=== PATIENT | female | born 1975 | race Two or more races ===

== ENCOUNTER 2018-04-11 13:31 | Emergency (ER) | payer MEDICAID ==
[2018-04-11] VITALS (9 sets, daily range): BP systolic 131–175; BP diastolic 61–89
[~2018-04-11] VITALS: Ht 167.6 cm; Wt 72.6 kg
[2018-04-11] MEDS ORDERED: Sodium Chloride 500ML 500 ML IV ONE ×2 (13:44→17:00)
--- NOTE | 2018-04-11 13:44 | Emergency Room Report ---
History of Present Illness General Chief Complaint: Abdominal Pain Source: Patient, EMS Present Illness HPI Patient is a 42-year-old female who presented after increased left upper abdominal pain. The patient had prior history of end-stage renal disease as well as dialysis. Patient had recently been started on anticoagulation for right upper extremity circulatory issues. Patient states that she does not know I have any history of immune disease or scleroderma. Patient states she has prior history of diabetes as well as high blood pressure. Patient had been taking the patient denies having any diarrhea or vomiting. She reports having severe pain primarily to the left side. Patient is dialyzed through a right- sided dialysis catheter. The patient states she is dialyzed Thursday and Thursday last time was Thursday Allergies: Coded Allergies: No Known Allergies (Unverified , 04/11/18) Patient History Past Medical History: see triage record Now: No Reviewed Nursing Documentation: PMH: Agreed; PSxH: Agreed Nursing Documentation-PMH Past Medical History: No History, Except For Hx Hypertension: Yes Hx Dialysis: Yes Review of Systems All Other Systems: negative except mentioned in HPI Physical Exam Vital Signs Date Time Temp Pulse Resp B/P (MAP) Pulse Ox O2 Delivery O2 Flow Rate FiO2 04/11/18 13:25 98.0 98 22 155/75 97 Room Air 98.1 Sp02 EP Interpretation: reviewed, normal General Appearance: normal inspection, well appearing, alert, GCS 15, mild distress Head: atraumatic ENT: normal ENT inspection, hearing grossly normal, normal voice Neck: normal inspection, full range of motion, supple, no bony tend Respiratory: normal inspection, lungs clear, normal breath sounds, no respiratory distress, no retraction, no wheezing Cardiovascular #1: regular rate, rhythm, no edema Gastrointestinal: normal inspection, normal bowel sounds, non tender, soft, no guarding, no hernia Genitourinary: no CVA tenderness Musculoskeletal: back normal, normal range of motion, other - dry gangrene to right hand index middle finger Neurologic: normal inspection, alert, oriented x3, responsive, set up operator tool III-XII nml as tested, speech normal Psychiatric: normal inspection, judgement/insight normal, mood/affect normal Skin: no rash, other - discoloration to right hand Medical Decision Making Diagnostic Impression: Primary Impression: Anemia Additional Impressions: ESRD (end stage renal disease) Diabetes Gangrene of finger of right hand Abnormal EKG Intra abdominal hemorrhage ER Course Patient presented for abdominal pain. Differential diagnoses included ischemic bowel, appendicitis, perforated viscus, abdominal aortic aneurysm, inferior myocardial infarction, viral gastroenteritis. Because of complexity of patient' s case laboratory testing and imaging studies were ordered.The patient noted to be somewhat anemic with hemoglobin approximate 7. The patient was noted be mildly hyperkalemic. CT abdomen pelvis read by radiology showed extensive left perinephric hematoma which appears subcapsular and measuring approximately 5 fluid and hemorrhage extends along the left retroperitoneum and into the pelvis. Cardiomegaly was also noted as well as probable uterine fibroid. test was negative.The patient was consented for blood and was transfused the due to anemia ischemic changes. The patient was given pain medicationsThe patient stated that she had a recent kidney biopsy to her left kidney done at [facility]. Patient was given aspirin due but apparent ischemic changes on EKG. The patient was discussed with Dr. Preciado who agreed to accept the patient in transfer to [facility] [place]. The patient being transferred for higher level of care Labs Test 04/11/18 14:10 White Blood Count 17.5 K/UL (4.8-10.8) Red Blood Count 2.52 M/UL (4.20-5.40) Hemoglobin 7.6 G/DL (12.0-16.0) Hematocrit 24.3 % (37.0-47.0) Mean Corpuscular Volume 96 FL (80-99) Mean Corpuscular Hemoglobin 30.4 PG (27.0-31.0) Mean Corpuscular Hemoglobin Concent 31.5 G/DL (32.0-36.0) Red Cell Distribution Width 15.2 % (11.6-14.8) Platelet Count 459 K/UL (150-450) Mean Platelet Volume 6.2 FL (6.5-10.1) Neutrophils (%) (Auto) % (45.0-75.0) Lymphocytes (%) (Auto) % (20.0-45.0) Monocytes (%) (Auto) % (1.0-10.0) Eosinophils (%) (Auto) % (0.0-3.0) Basophils (%) (Auto) % (0.0-2.0) Differential Total Cells Counted 100 Neutrophils % (Manual) 50 % (45-75) Lymphocytes % (Manual) 34 % (20-45) Monocytes % (Manual) 9 % (1-10) Eosinophils % (Manual) 7 % (0-3) Basophils % (Manual) 0 % (0-2) Band Neutrophils 0 % (0-8) Platelet Estimate Increased Platelet Morphology Normal Polychromasia 1+ Hypochromasia 1+ Anisocytosis 1+ Macrocytosis 1+ Prothrombin Time 10.1 SEC (9.30-11.50) Prothromb Time International Ratio 1.0 (0.9-1.1) Activated Partial Thromboplast Time 24 SEC (23-33) Sodium Level 137 MMOL/L (136-145) Potassium Level 5.5 MMOL/L (3.5-5.1) Chloride Level 99 MMOL/L (98-107) Carbon Dioxide Level 21 MMOL/L (21-32) Anion Gap 17 mmol/L (5-15) Blood Urea Nitrogen 42 mg/dL (7-18) Creatinine 6.9 MG/DL (0.55-1.30) Estimat Glomerular Filtration Rate 6.6 mL/min (>60) Glucose Level 190 MG/DL (74-106) Calcium Level 10.4 MG/DL (8.5-10.1) Total Bilirubin 0.5 MG/DL (0.2-1.0) Aspartate Amino Transf (AST/SGOT) 35 U/L (15-37) Alanine Aminotransferase (ALT/SGPT) 15 U/L (12-78) Alkaline Phosphatase 152 U/L (46-116) Troponin I 0.097 ng/mL (0.000-0.056) Total Protein 9.2 G/DL (6.4-8.2) Albumin 2.9 G/DL (3.4-5.0) Globulin 6.3 g/dL Albumin/Globulin Ratio 0.5 (1.0-2.7) Lipase 153 U/L (73-393) Human Chorionic Gonadotropin, Qual Negative EKG Diagnostic Results Rate: normal Rhythm: NSR ST Segments: other - lateral st depression ASA given to the pt in ED: No Last Vital Signs Date Time Temp Pulse Resp B/P (MAP) Pulse Ox O2 Delivery O2 Flow Rate FiO2 04/11/18 13:32 98.1 89 22 155/75 97 Room Air 98.1 Status: unchanged Disposition: XFER SHT-TRM HOSP Condition: Critical Obinna Baez MD April 11, 2018 13:44
[2018-04-11] MEDS ORDERED: Pantoprazole Inj IVP ONE (13:45)
[2018-04-11] MEDS ORDERED: Morphine Sulfate 4mg/ml Inj IVP ONE ×4 (13:45→19:30)
[2018-04-11 14:29] LABS: HEMATOCRIT 24.3 % (37.0-47.0); HEMOGLOBIN 7.6 G/DL (12.0-16.0); MEAN CORPUSCULAR VOLUME 96 FL (80-99); PLATELET COUNT 459 K/UL (150-450); RED BLOOD COUNT 2.52 M/UL (4.20-5.40); RED CELL DISTRIBUTION WIDTH 15.2 % (11.6-14.8); WHITE BLOOD COUNT 17.5 K/UL (4.8-10.8)
[2018-04-11] MEDS ORDERED: Aspirin Baby 81mg ORAL ONE (14:30)
[2018-04-11] MEDS ORDERED: Piperacillin/Tazobactam 3.375 GM in NS 110 ML IVPB ONE (14:45)
[2018-04-11 15:05] LABS: ANION GAP 17 mmol/L (5-15); BLOOD UREA NITROGEN 42 mg/dL (7-18); CALCIUM 10.4 MG/DL (8.5-10.1); CARBON DIOXIDE 21 MMOL/L (21-32); CHLORIDE 99 MMOL/L (98-107); CREATININE 6.9 MG/DL (0.55-1.30); POTASSIUM 5.5 MMOL/L (3.5-5.1); SODIUM 137 MMOL/L (136-145)
[2018-04-11 15:14] LABS: ALANINE AMINOTRANSFERASE 15 U/L (12-78); ALBUMIN 2.9 G/DL (3.4-5.0); ALBUMIN/GLOBULIN RATIO 0.5 (1.0-2.7); ALKALINE PHOSPHATASE 152 U/L (46-116); ASPARTATE AMINO TRANSFERASE 35 U/L (15-37); BILIRUBIN,TOTAL 0.5 MG/DL (0.2-1.0)
[2018-04-11] MEDS ORDERED: Sodium Bicarbonate 50ml Carp IV ONE (15:30)
[2018-04-11] MEDS ORDERED: Morphine Sulfate 4mg/ml Inj ONE (19:27)
[2018-04-11] MEDS ORDERED: NKM (19:33)
[2018-04-12] VITALS: BP 136/98
[2018-04-12 03:15] VITALS: BP 135/62
--- NOTE | 2018-04-12 09:51 | Diagnostic Imaging Report ---
Indication: Abdominal pain Technique: Continuous helical transaxial imaging of the abdomen and pelvis was obtained from the lung bases to the pubic symphysis. No intravenous contrast was administered. Coronal 2-D reformats were also obtained. Automatic Exposure Control was utilized. Total Dose length Product (DLP): 915.[address] Dose Index Volume (CTDIvol): 15.03 mGy Comparison: none Findings: There is evidence of an acute hematoma that is primarily capsular location lateral to the left kidney. There is surrounding streaky opacification involving the perinephric space as well as the pararenal space extending down to the left hemipelvis. Although this is consistent with hematoma or retroperitoneal blood. The capsular component of the hematoma measures approximately 8.4 x 6 cm on transaxial images and about 12 cm craniocaudal dimension. The urinary bladder is hyperdense which is probably blood due to associated hematuria. Gallstones are present. The right kidney is absent. There is a moderate amount of fecal material in the colon. There is no evidence of bowel obstruction.There is mild posterior basilar atelectasis. There is trace pericardial effusion versus thickening. IMPRESSION: Left subcapsular retroperitoneal hematoma with associated perinephric and retroperitoneal blood. Associated blood within the urinary bladder. Absent right kidney. Other incidental findings as above. [facility] has communicated the preliminary results to the Emergency Department. Their findings are largely concordant with this report. Critical value communication. Findings were discussed via telephone with emergency room physician department by [facility] physician at 15:22, 04/11/[address] scanner at [facility] is accredited by the [employer] and the scans are performed using dose optimization techniques as appropriate to a performed exam including Automatic Exposure control.
--- NOTE | 2018-04-12 13:51 | Cardiology Report ---
APPROVED REPORT EKG Measurement Heart [id number] [id number] Normal sinus rhythm Left ventricular hypertrophy with repolarization abnormality Abnormal ECG
== END 2018-04-11 20:12 | disposition short-term general hospital (02) ==
LOC: EDBD 13:31 → EMR 13:43 → EDBEDREQ 16:26 → EMR 20:12
DX: D64.9 Anemia, unspecified (principal); I12.0 Hypertensive chronic kidney disease with stage 5 chronic kidney disease or end stage renal disease; N18.6 End stage renal disease; Z99.2 Dependence on renal dialysis; I96 Gangrene, not elsewhere classified; R94.31 Abnormal electrocardiogram [ECG] [EKG]; R58 Hemorrhage, not elsewhere classified; K80.20 Calculus of gallbladder without cholecystitis without obstruction
CPT/HCPCS: 36415; 74176; 80053; 83690; 84484; 84703; 85007; 85025; 85610; 85730; 86850; 86900; 86901; 86920; 93005; 96374; 96375; 99285; C9113; J2270; J2405; J2543; J7040; P9016

== ENCOUNTER 2018-11-01 13:59 | Inpatient (IN) | payer MEDICAID ==
[~2018-11-01] VITALS: Ht 167.6 cm; Wt 88.9 kg
[2018-11-01] VITALS (13 sets, daily range): BP systolic 75–142; BP diastolic 26–81
[~2018-11-01 13:59] MED LIST: ACETAMINOPHEN325 M1 ORAL; AMLODIPINE-ATO1 EAC4 ORAL; ATORVASTATIN CA40 MG ORAL; BETADINE TP; CALCIUM ACETAT667 M1 PO; CATAPRES0.3 MG ORAL; CYMBALTA60 MG ORAL; DAKIN'S473 ML MC; DOCUSATE SODIU100 MG ORAL; FAMOTIDINE20 MG ORAL; FOLIC ACID1 MG ORAL; HEPARIN SO5000 UNIT2 SUBQ; HIBICLENS118 ML TP; HYDRALAZINE HCL25 M1 ORAL; IPRATROPIU0.2 MG/1 M HHN; MEROPENEM500 MG IV; MERREM1 GM IV; MIRTAZAPINE7.5 MG ORAL; NKM; NOVOLIN R100 UNIT/1 SUBQ; NOVOLOG100 UNITS1 SUBQ; PROCRIT20000 UNI2 SUBQ; VANCOMYCIN HCL125 MG IVPB
[2018-11-01] MEDS ORDERED: ASCORBIC ACID500 MG ORAL (14:22)
[2018-11-01] MEDS ORDERED: ZINC SULFATE220 M1 ORAL (14:22)
[2018-11-01] MEDS ORDERED: PERCOCET 10-321 EACH ORAL (14:22)
[2018-11-01] MEDS ORDERED: MIRTAZAPINE15 MG ORAL (14:22)
--- NOTE | 2018-11-01 14:44 | Emergency Room Report ---
History of Present Illness General Chief Complaint: Skin Rash/Abscess Source: Patient, EMS Present Illness HPI Patient present from nursing facility with swelling to the right arm Patient has multiple comorbidities including renal failure Patient reports being last dialyzed yesterday Denies any chest pain however she feels weak also cramping and spasming in both legs She reports the swelling and redness starting about 3 days ago Denies any fevers denies any neck pain or photophobia Allergies: Coded Allergies: No Known Allergies (Unverified , 04/11/18) Patient History Past Medical History: see triage record Pertinent Family History: none Reviewed Nursing Documentation: PMH: Agreed; PSxH: Agreed Nursing Documentation-PMH Past Medical History: No History, Except For Hx Cardiac Problems: Yes Hx Hypertension: Yes Hx Diabetes: Yes Hx Cancer: No Hx Gastrointestinal Problems: No Hx Dialysis: Yes - T,Th,S Hx Neurological Problems: Yes - HEREDITARY AND IDIOPATHIC NEUROPATHY, UNSPECIFIED Review of Systems All Other Systems: negative except mentioned in HPI Physical Exam Vital Signs Date Time Temp Pulse Resp B/P (MAP) Pulse Ox O2 Delivery O2 Flow Rate FiO2 11/01/18 14:00 97.5 68 20 133/89 11/01/18 14:02 98 Room Air Sp02 EP Interpretation: reviewed, normal General Appearance: no apparent distress Head: normocephalic, atraumatic Eyes: bilateral eye PERRL, bilateral eye EOMI ENT: dry mucus membranes Neck: supple Respiratory: lungs clear, normal breath sounds Cardiovascular #1: regular rate, rhythm Gastrointestinal: non tender, soft Musculoskeletal: other - Extended in both lower extremities, with pressure guards in place, equal dental laboratory manager bilaterally Neurologic: alert, oriented x3, responsive Skin: other - There is a fluctuant mass in the right upper arm involving the forearm and antecubital fossa patient has a, PICC line just above that,Multiple other sacral decubitus ulcers and open wounds Lymphatic: no adenopathy Procedures Critical Care Time Critical Care Time 35 minutes for multiple re-evaluations, concerning hypotensive presentation concerning for cardiopulmonary arrest not including any procedural time Medical Decision Making Diagnostic Impression: Primary Impression: Abscess Additional Impressions: Rash and other nonspecific skin eruption Open wound of both hips Renal failure ER Course Given the patient's history exam and presentation sensitive blood work is initiated patient initially hypotensive however has done better with acute intervention Sepsis reexamination Time: Re-eval VS refer to nursing note cvs: RRR respiratory: improved respiration peripheral pulses: 2+radial cap refill:<2 seconds skin exam: warm, dry, not mottled Patient provided with broad-spectrum antibiotics Gen. surgery is contacted and patient requires further care Labs Test 11/01/18 14:45 11/01/18 16:00 11/02/18 07:00 White Blood Count 11.7 K/UL (4.8-10.8) 9.9 K/UL (4.8-10.8) Red Blood Count 3.85 M/UL (4.20-5.40) 3.35 M/UL (4.20-5.40) Hemoglobin 11.0 G/DL (12.0-16.0) 9.7 G/DL (12.0-16.0) Hematocrit 37.3 % (37.0-47.0) 32.5 % (37.0-47.0) Mean Corpuscular Volume 97 FL (80-99) 97 FL (80-99) Mean Corpuscular Hemoglobin 28.7 PG (27.0-31.0) 28.9 PG (27.0-31.0) Mean Corpuscular Hemoglobin Concent 29.6 G/DL (32.0-36.0) 29.9 G/DL (32.0-36.0) Red Cell Distribution Width 16.4 % (11.6-14.8) 16.3 % (11.6-14.8) Platelet Count 185 K/UL (150-450) 188 K/UL (150-450) Mean Platelet Volume 6.0 FL (6.5-10.1) 5.6 FL (6.5-10.1) Neutrophils (%) (Auto) 52.7 % (45.0-75.0) 62.3 % (45.0-75.0) Lymphocytes (%) (Auto) 35.1 % (20.0-45.0) 25.1 % (20.0-45.0) Monocytes (%) (Auto) 8.8 % (1.0-10.0) 7.6 % (1.0-10.0) Eosinophils (%) (Auto) 1.7 % (0.0-3.0) 2.9 % (0.0-3.0) Basophils (%) (Auto) 1.7 % (0.0-2.0) 2.2 % (0.0-2.0) Sodium Level 138 MMOL/L (136-145) 142 MMOL/L (136-145) Potassium Level 5.1 MMOL/L (3.5-5.1) 4.3 MMOL/L (3.5-5.1) Chloride Level 106 MMOL/L (98-107) 108 MMOL/L (98-107) Carbon Dioxide Level 25 MMOL/L (21-32) 27 MMOL/L (21-32) Anion Gap 8 mmol/L (5-15) 7 mmol/L (5-15) Blood Urea Nitrogen 27 mg/dL (7-18) 29 mg/dL (7-18) Creatinine 4.0 MG/DL (0.55-1.30) 4.2 MG/DL (0.55-1.30) Estimat Glomerular Filtration Rate 12.3 mL/min (>60) 11.6 mL/min (>60) Glucose Level 75 MG/DL (74-106) 105 MG/DL (74-106) Lactic Acid Level 2.30 mmol/L (0.4-2.0) 1.70 mmol/L (0.66-2.22) Calcium Level 8.7 MG/DL (8.5-10.1) 8.2 MG/DL (8.5-10.1) Total Bilirubin 0.7 MG/DL (0.2-1.0) 0.6 MG/DL (0.2-1.0) Aspartate Amino Transf (AST/SGOT) 18 U/L (15-37) 15 U/L (15-37) Alanine Aminotransferase (ALT/SGPT) < 6 U/L (12-78) 1 U/L (12-78) Alkaline Phosphatase 289 U/L (46-116) 239 U/L (46-116) Total Creatine Kinase 24 U/L (26-308) Creatine Kinase MB 1.0 NG/ML (0.0-3.6) Creatine Kinase MB Relative Index 4.1 Troponin I 0.033 ng/mL (0.000-0.056) Total Protein 7.5 G/DL (6.4-8.2) 6.6 G/DL (6.4-8.2) Albumin 1.4 G/DL (3.4-5.0) 1.2 G/DL (3.4-5.0) Globulin 6.1 g/dL 5.4 g/dL Albumin/Globulin Ratio 0.2 (1.0-2.7) 0.2 (1.0-2.7) Lipase 31 U/L (73-393) Rhythm Strip Diag. Results EP Interpretation: yes Rate: 88 Rhythm: NSR, no PVC's, no ectopy Chest X-Ray Diagnostic Results Chest X-Ray Diagnostic Results : Chest X-Ray Ordered: Yes # of Views/Limited/Complete: 1 View Indication: Chest Pain EP Interpretation: Yes Interpretation: other - Bilateral effusions, cardiomegaly, pulmonary congestion, no acute bony abnormalities Impression: Other - Pulmonary congestion bilateral effusions Last Vital Signs Date Time Temp Pulse Resp B/P (MAP) Pulse Ox O2 Delivery O2 Flow Rate FiO2 11/01/18 14:02 97.7 88 12 96/26 98 Room Air Status: improved Disposition: ADMITTED INPATIENT Condition: Critical Jaylon Armenta DO Nov 01, 2018 14:44
--- NOTE | 2018-11-01 15:09 | Diagnostic Imaging Report ---
Indication: Dyspnea Comparison: 10/22/2018 A single view chest radiograph was obtained. Findings: Congestion noted centrally with mild cardiomegaly. Parenchymal disease at the lung bases again noted. There is likely bilateral pleural effusions. A right jugular permacath is present in good position. IMPRESSION: Congestive heart failure and bilateral pleural effusions. Overall severity of the disease appears improved from the last examination
[2018-11-01] MEDS ORDERED: Sodium Chloride 500ML 500 ML IV ONE (15:15)
[2018-11-01] MEDS ORDERED: cefTRIAXone 1 GM in NS 55 ML IVPB ONE (15:15)
[2018-11-01] MEDS ORDERED: Vancomycin 1 GM in NS 275 ML IVPB ONE (15:15)
[2018-11-01 15:26] LABS: BASOPHILS % (AUTO) 1.7 % (0.0-2.0); EOSINOPHILS % (AUTO) 1.7 % (0.0-3.0); HEMATOCRIT 37.3 % (37.0-47.0); LYMPHOCYTES % (AUTO) 35.1 % (20.0-45.0); MEAN CORPUSCULAR VOLUME 97 FL (80-99); MONOCYTES % (AUTO) 8.8 % (1.0-10.0); NEUTROPHILS % (AUTO) 52.7 % (45.0-75.0); PLATELET COUNT 185 K/UL (150-450); RED BLOOD COUNT 3.85 M/UL (4.20-5.40); RED CELL DISTRIBUTION WIDTH 16.4 % (11.6-14.8); WHITE BLOOD COUNT 11.7 K/UL (4.8-10.8)
[2018-11-01 15:34] LABS: ANION GAP 8 mmol/L (5-15); BLOOD UREA NITROGEN 27 mg/dL (7-18); CALCIUM 8.7 MG/DL (8.5-10.1); CARBON DIOXIDE 25 MMOL/L (21-32); CHLORIDE 106 MMOL/L (98-107); POTASSIUM 5.1 MMOL/L (3.5-5.1); SODIUM 138 MMOL/L (136-145)
[2018-11-01 15:59] LABS: ALANINE AMINOTRANSFERASE < 6 U/L (12-78); ALBUMIN 1.4 G/DL (3.4-5.0); ALBUMIN/GLOBULIN RATIO 0.2 (1.0-2.7); ALKALINE PHOSPHATASE 289 U/L (46-116); ASPARTATE AMINO TRANSFERASE 18 U/L (15-37); BILIRUBIN,TOTAL 0.7 MG/DL (0.2-1.0); CREATINE KINASE 24 U/L (26-308)
[2018-11-01] MEDS ORDERED: COLLAGENASE1 EACH TP (18:29)
[2018-11-01] MEDS ORDERED: OXYCODONE-ACET1 EAC3 ORAL (18:29)
[2018-11-01] MEDS ORDERED: PRO-STAT AWC L887 ML PO (18:31)
[2018-11-01] MEDS ORDERED: NEPRO CARB STE237 ML PO (18:33)
[2018-11-01] MEDS ORDERED: oxyCODONE HCL/Acetaminophen 5/325mg ORAL PRN (19:45)
[2018-11-01] MEDS: NovoLOG Insulin Flexpen SUBQ SCH (21:00)
[2018-11-01] MEDS ORDERED: DULoxetine 30mg cap ORAL SCH (21:00)
[2018-11-01] MEDS ORDERED: Epogen (for ESRD on dialysis) SUBQ SCH (21:00)
[2018-11-01] MEDS ORDERED: Atorvastatin 20mg tab ORAL SCH (21:00)
[2018-11-01] MEDS: Heparin 5000 units/ml inj SUBQ SCH (22:41)
[2018-11-02] VITALS (20 sets, daily range): BP systolic 104–117; BP diastolic 23–83
[2018-11-02] MEDS: Calcium Acetate 667mg Tab ORAL SCH ×3 (05:59→16:35)
[2018-11-02] MEDS: NovoLOG Insulin Flexpen SUBQ SCH ×4 (06:06→21:00)
[2018-11-02] MEDS: Heparin 5000 units/ml inj SUBQ SCH ×3 (06:06→21:25)
[2018-11-02 07:23] LABS: BASOPHILS % (AUTO) 2.2 % (0.0-2.0); EOSINOPHILS % (AUTO) 2.9 % (0.0-3.0); HEMATOCRIT 32.5 % (37.0-47.0); HEMOGLOBIN 9.7 G/DL (12.0-16.0); LYMPHOCYTES % (AUTO) 25.1 % (20.0-45.0); MEAN CORPUSCULAR VOLUME 97 FL (80-99); MONOCYTES % (AUTO) 7.6 % (1.0-10.0); NEUTROPHILS % (AUTO) 62.3 % (45.0-75.0); PLATELET COUNT 188 K/UL (150-450); RED BLOOD COUNT 3.35 M/UL (4.20-5.40); RED CELL DISTRIBUTION WIDTH 16.3 % (11.6-14.8); WHITE BLOOD COUNT 9.9 K/UL (4.8-10.8)
[2018-11-02 07:41] LABS: ALBUMIN 1.2 G/DL (3.4-5.0); ALBUMIN/GLOBULIN RATIO 0.2 (1.0-2.7); ALKALINE PHOSPHATASE 239 U/L (46-116); ANION GAP 7 mmol/L (5-15); ASPARTATE AMINO TRANSFERASE 15 U/L (15-37); BILIRUBIN,TOTAL 0.6 MG/DL (0.2-1.0); BLOOD UREA NITROGEN 29 mg/dL (7-18); CALCIUM 8.2 MG/DL (8.5-10.1); CARBON DIOXIDE 27 MMOL/L (21-32); CHLORIDE 108 MMOL/L (98-107); CREATININE 4.2 MG/DL (0.55-1.30); POTASSIUM 4.3 MMOL/L (3.5-5.1); SODIUM 142 MMOL/L (136-145)
[2018-11-02 07:50] LABS: ALANINE AMINOTRANSFERASE 1 U/L (12-78)
[2018-11-02] MEDS ORDERED: Zinc Sulfate 220mg cap ORAL SCH (09:00)
[2018-11-02] MEDS ORDERED: Ascorbic Acid 500mg tab ORAL SCH (09:00)
[2018-11-02] MEDS ORDERED: Vancomycin 500mg/D5W 110ml IVPB ONE ×2 (10:00)
[2018-11-02] MEDS ORDERED: Dakin's 0.125% Soln (Quarter Strength) 16oz TOPIC SCH (11:30)
[2018-11-02] MEDS ORDERED: Morphine Sulfate 2mg/ml Inj IVP PRN ×2 (12:15→16:30)
[2018-11-02] MEDS ORDERED: Betadine 4oz Bottle TOPIC ONE (12:30)
[2018-11-02] MEDS ORDERED: Tubing IV Secondary IV ONE (15:20)
--- NOTE | 2018-11-02 15:29 | Cardiology Report ---
APPROVED REPORT EKG Measurement Heart [id number] 152P41 [id number] Normal sinus rhythm Possible Left atrial enlargement Prolonged QT Abnormal ECG
--- NOTE | 2018-11-02 16:45 | History and Physical Report ---
DATE OF ADMISSION: 11/01/2018 CHIEF COMPLAINT: Sepsis, cellulitis of the arm, end-stage renal disease, multiple decubitus ulcers. HISTORY OF PRESENT ILLNESS: The patient is an unfortunate 43-year-old female. She has history of end-stage renal disease, on chronic hemodialysis, hypertension, and diabetes. She has history of chronic wounds on the hips. [facility] She was apparently noted to be draining pus and have an abscess and cellulitis on the forearm several inches from her PICC line insertion site. She was transferred to the emergency room. On evaluation there, she was hypotensive. Her white count was elevated at 12,000. Cultures were drawn from the wound on the forearm and she is now admitted to intensive care unit because of persistent hypotension. She otherwise was without complaints. She denies any fever or chills. She has had no chest pain or shortness of breath. PAST MEDICAL HISTORY: As above. PAST SURGICAL HISTORY: Includes history of left upper extremity AV fistula. She has a PermCath. CURRENT MEDICATIONS: Reconciled and reviewed. ALLERGIES: None. FAMILY HISTORY: None. SOCIAL HISTORY: There is no known history of tobacco, ethanol, or drugs. The patient currently resides in a jail facility. PHYSICAL EXAMINATION: VITAL SIGNS: Temperature 97.8, pulse 85, respirations 15, blood pressure 110/42. GENERAL: The patient is a thin, chronic ill-appearing female, in no apparent distress. HEART: Regular rate and rhythm. LUNGS: Clear. SKIN: She has a chest wall catheter on the right side and an AV fistula with good thrill on the left upper extremity. The right arm has a PICC line and several inches below the PICC line, there is erythema and drainage noted. LABORATORY DATA: Sodium 138, potassium was 5, creatinine was 4. The white count was 12, hemoglobin 11, platelets 185,000. ASSESSMENT: This is an unfortunate female with history of end-stage renal disease, diabetes, hypertension, multiple decubitus ulcers, admitted with complaints of cellulitis of the right arm. PROBLEM LIST: 1. Right arm cellulitis. 2. End-stage renal disease. 3. Sepsis and shock. 4. History of diabetes. 5. Hypertension. PLAN: IV antibiotics. Surgery followup. Renal consultation for continuation of the patient's hemodialysis. Wound care evaluation from wound hr shared services consultant. Holden Quiroz M.D. DR: Amira JOB#: [id number] CC:
--- NOTE | 2018-11-02 17:00 | Consultation ---
DATE OF CONSULTATION: 11/02/2018 REFERRING PHYSICIAN: Holden Quiroz M.D. REASON FOR CONSULTATION: 1. End-stage renal disease, on hemodialysis. 2. Anemia of chronic kidney disease. HISTORY OF PRESENT ILLNESS: The patient is a pleasant 43-year-old female who had recently been to [facility] for sepsis due to underlying wound infections. The patient now being readmitted again due to swelling of the right upper arm with possible PICC line infection. The patient is awake, alert, coherent, in no overt distress. The patient has not had hemodialysis since Thursday. PAST MEDICAL HISTORY: 1. End-stage renal disease on hemodialysis. 2. Anemia of chronic kidney disease. 3. Sepsis. 4. Secondary hyperparathyroidism. 5. Chronic pain syndrome. 6. Hyperlipidemia. PAST SURGICAL HISTORY: 1. Dialysis access placement. 2. PICC line placement. 3. Sacral wound debridements. ALLERGIES: No known drug allergies. FAMILY HISTORY: Noncontributory. REVIEW OF SYSTEMS: NEUROLOGIC: The patient denies headache, change in vision, syncope, or presyncopal episodes. CARDIOVASCULAR: No current chest pain, palpitations, angina. PULMONARY: No difficulty breathing, productive cough, sputum. GASTROINTESTINAL/GENITOURINARY: No change in urine or bowel habits. No nausea, vomiting, diarrhea. ENDOCRINOLOGY: No night sweats, fevers, chills. MUSCULOSKELETAL: The patient is feeling weak, tired, and fatigue. PHYSICAL EXAMINATION: VITAL SIGNS: Blood pressure 110/42, respiratory rate 13, pulse 90, temperature 97.8, 100% oxygen saturation on 2 liters nasal cannula. HEENT: Extraocular muscles intact. No lymphadenopathy noted. CARDIOVASCULAR: S1 and S2. No rubs or gallops. PULMONARY: Clear to auscultation bilaterally. No rales, rhonchi, or wheeze. ABDOMEN: Nondistended and nontender. EXTREMITIES: No edema noted. Wound noted. LABORATORY AND DIAGNOSTIC DATA: Laboratories dated 11/02/2018, sodium 142, potassium 4.3, BUN 29, creatinine 4.2, calcium 8.2. Hemoglobin 9.7, white cell count 9.9, and platelet count 188. ASSESSMENT AND PLAN: 1. End-stage renal disease, on hemodialysis. We will continue hemodialysis on Thursday, , and Thursday. We will order hemodialysis for today with minimal UF due to hemodynamic instability. 2. Anemia of chronic kidney disease. Continue Epogen. 3. Sepsis. Possible PICC line infection. IV antibiotics per primary care physician and Infectious Diseases. 4. Chronic pain syndrome. Defer management to primary care physician. Let me take this opportunity to thank Dr. Quiroz. Rajat Turner MD DR: Justin JOB#: [id number] CC:
[2018-11-02] MEDS: DULoxetine 30mg cap ORAL SCH (21:24)
[2018-11-02] MEDS: Atorvastatin 20mg tab ORAL SCH (21:24)
[2018-11-02] MEDS: Morphine Sulfate 2mg/ml Inj IVP PRN (21:27)
[2018-11-03] VITALS: BP 119/64
[2018-11-03 04:00] VITALS: BP 121/73
[2018-11-03] MEDS: Calcium Acetate 667mg Tab ORAL SCH ×3 (05:38→16:15)
[2018-11-03] MEDS: NovoLOG Insulin Flexpen SUBQ SCH ×4 (05:38→20:35)
[2018-11-03] MEDS: Heparin 5000 units/ml inj SUBQ SCH ×3 (05:47→21:24)
[2018-11-03 08:00] VITALS: BP 114/77
--- NOTE | 2018-11-03 08:36 | Nephrology Progress Note ---
Assessment/Plan Assessment/Plan A/P 1) ESRD- will continue HD TTS - had HD yesterday. AM labs pending 2) Sepsis/Cellulitis- Abx per per PCP - patient improved 3) Anemia of CKD- on EPO 3 x week 4) SHPT- check phos levels 5) Sacral Wounds- per wound care Subjective Date patient seen: Nov 03, 2018 Time patient seen: 08:25 ROS Limited/Unobtainable: No Constitutional: Reports: weakness Allergies: Coded Allergies: No Known Allergies (Unverified , 04/11/18) Subjective Patient fatigued. Resting comfortably Objective Last 24 Hour Vital Signs Date Time Temp Pulse Resp B/P (MAP) Pulse Ox O2 Delivery O2 Flow Rate FiO2 11/03/18 04:00 Nasal Cannula 2.0 11/03/18 04:00 86 11/03/18 04:00 97.8 84 14 121/73 (89) 100 11/03/18 00:00 Nasal Cannula 2.0 11/03/18 00:00 98.2 95 16 119/64 (82) 100 11/03/18 00:00 93 11/02/18 20:00 93 11/02/18 20:00 Nasal Cannula 2.0 11/02/18 20:00 98.0 88 10 112/56 (74) 100 11/02/18 18:00 85 11 109/28 (55) 100 11/02/18 17:00 88 9 112/26 (54) 100 11/02/18 16:00 97.5 86 5 112/26 (54) 100 11/02/18 16:00 85 11/02/18 15:00 86 11 116/28 (57) 100 11/02/18 14:00 85 12 104/23 (50) 100 11/02/18 13:00 85 11 113/28 (56) 100 11/02/18 12:00 90 11/02/18 12:00 97.9 89 10 112/50 (70) 100 11/02/18 11:00 87 15 111/59 (76) 100 11/02/18 10:00 85 14 109/83 (92) 100 11/02/18 09:00 90 13 111/26 (54) 100 Intake and Output 11/02/18 11/03/18 19:00 07:00 Intake Total 160 ml Output Total 1000 ml Balance -840 ml Intake Oral 50 ml IV Total 110 ml Output Hemodialysis UF 1000 ml Height (Feet): 5 Height (Inches): 6.00 Weight (Pounds): 153 General Appearance: no apparent distress EENT: normal ENT inspection Neck: normal alignment, supple Cardiovascular: normal rate, regular rhythm Respiratory/Chest: rhonchi - bilaterally Abdomen: non tender, soft Edema: no edema noted Arm (L), no edema noted Arm (R), no edema noted Leg (L), no edema noted Leg (R), no edema noted Pedal (L), no edema noted Pedal (R), no edema noted Generalized Rajat Turner MD Nov 03, 2018 08:36
[2018-11-03] MEDS ORDERED: Dakin's 0.125% Soln (Quarter Strength) 16oz TOPIC SCH ×2 (09:00→21:00)
[2018-11-03] MEDS: Ascorbic Acid 500mg tab ORAL SCH (09:20)
[2018-11-03] MEDS: Zinc Sulfate 220mg cap ORAL SCH (09:21)
[2018-11-03 09:38] LABS: EOSINOPHILS % (AUTO) 3.2 % (0.0-3.0); HEMATOCRIT 29.6 % (37.0-47.0); HEMOGLOBIN 8.9 G/DL (12.0-16.0); LYMPHOCYTES % (AUTO) 32.8 % (20.0-45.0); MEAN CORPUSCULAR VOLUME 96 FL (80-99); MONOCYTES % (AUTO) 10.6 % (1.0-10.0); NEUTROPHILS % (AUTO) 51.5 % (45.0-75.0); PLATELET COUNT 146 K/UL (150-450); RED BLOOD COUNT 3.08 M/UL (4.20-5.40); RED CELL DISTRIBUTION WIDTH 16.1 % (11.6-14.8); WHITE BLOOD COUNT 9.7 K/UL (4.8-10.8)
[2018-11-03 11:07] LABS: ANION GAP 6 mmol/L (5-15); BLOOD UREA NITROGEN 25 mg/dL (7-18); CALCIUM 8.2 MG/DL (8.5-10.1); CARBON DIOXIDE 29 MMOL/L (21-32); CHLORIDE 105 MMOL/L (98-107); CREATININE 3.1 MG/DL (0.55-1.30); SODIUM 140 MMOL/L (136-145)
[2018-11-03 12:00] VITALS: BP 123/71
--- NOTE | 2018-11-03 15:50 | Consultation ---
History of Present Illness General Date patient seen: Nov 03, 2018 Chief Complaint: Skin Rash/Abscess Reason for Consultation: right arm abscess Present Illness HPI 43 year old unfortunate female with multiple medical comorbidities who is care dependant was recently readmitted. Patient was seen prior admission and help care for her many wounds. currently readmitted and noted to have right arm abscess. surgery called to evaluate. patient seen, chart reviewed, patient examined. states she feels well. has been noting drainage in right arm for days now Allergies: Coded Allergies: No Known Allergies (Unverified , 04/11/18) Medication History Scheduled Amino Acids/Protein Hydrolys (Pro-Stat Awc Liquid), 30 ML PO TID, (Reported) Ascorbic Acid* (Ascorbic Acid*), 500 MG ORAL DAILY, (Reported) Atorvastatin Calcium* (Atorvastatin Calcium*), 40 MG ORAL BEDTIME, (Reported) Calcium Acetate (Calcium Acetate), 1,334 MG PO AC, (Reported) Chlorhexidine Gluconate* (Hibiclens*), 118 ML TP DAILY, (Reported) Collagenase Clostridium Hist. (Collagenase), 1 EACH TP Q12HR, (Reported) Duloxetine Hcl* (Cymbalta*), 60 MG ORAL DAILY, (Reported) Epoetin Vishal (Procrit), 7,500 UNIT SUBQ 3XW, (Reported) Famotidine (Famotidine), 20 MG ORAL DAILY, (Reported) Folic Acid* (Folic Acid*), 1 MG ORAL DAILY, (Reported) Heparin Sod (Porcine) (Heparin Sodium*), 5,000 UNITS SUBQ EVERY 8 HOURS, ( Reported) Insulin Aspart (Novolog Flexpen), SUBQ BEFORE MEALS AND HS, (Reported) Insulin Regular, Human* (Novolin R*), 0 SUBQ .SLIDING SCALE, (Reported) Meropenem (Meropenem), 500 MG IV DAILY, (Reported) Mirtazapine* (Remeron*), 15 MG ORAL BEDTIME, (Reported) Nut.tx.impaired Renal Fxn,Soy (Nepro Carb Steady), Unknown Dose PO TID, ( Reported) Zinc Sulfate (Zinc Sulfate*), 220 MG ORAL DAILY, (Reported) Scheduled PRN Acetaminophen* (Acetaminophen 325MG Tablet*), 650 MG ORAL Q6HR PRN for Fever/ Headache/Mild Pain, (Reported) Ipratropium [place] 0.5MG/2.5ML (Ipratropium [place] 0.5MG/2.5ML), 0.5 MG HHN Q6H PRN for Shortness of Breath, (Reported) Oxycodone Hcl/Acetaminophen 10-325 Mg Tablet (Percocet 10-325 Mg Tablet*), 1 TAB ORAL Q6H PRN for For Pain, (Reported) Oxycodone Hcl/Acetaminophen 5-325* (Oxycodone-Acetaminophen 5-325*), 1 TAB ORAL Q4H PRN for Pain Scale (3-5), (Reported) Oxycodone Hcl/Acetaminophen 5-325* (Oxycodone-Acetaminophen 5-325*), 2 TAB ORAL Q4H PRN for Pain Scale (6-10), (Reported) Miscellaneous Medications Povidone-Iodine (Betadine), 3,780 ML TP, (Reported) Sodium Hypochlorite (Dakin's), 473 ML MC, (Reported) Vancomycin Hcl (Vancomycin Hcl), 0 IVPB, (Reported) Discontinued Medications Acetaminophen* (Acetaminophen 325MG Tablet*), 650 MG ORAL Q4H PRN for Mild Pain (Pain Scale 1-3), (Reported) Discontinued Reason: Pt stopped taking med Amlodipine-Atorvastatin 10-20 Mg (Amlodipine-Atorvastatin 10-20 Mg), 1 TAB ORAL DAILY, (Reported) Discontinued Reason: Pt stopped taking med Calcium Acetate (Calcium Acetate), 667 MG PO, (Reported) Discontinued Reason: Pt stopped taking med Clonidine Hcl* (Catapres*), 0.3 MG ORAL Q8HR, (Reported) Discontinued Reason: Pt stopped taking med Docusate Sodium* (Docusate Sodium*), 100 MG ORAL THREE TIMES A DAY, (Reported) Discontinued Reason: Pt stopped taking med Heparin Sod (Porcine) (Heparin Sodium*), 5,000 UNITS SUBQ EVERY 8 HOURS, ( Reported) Discontinued Reason: Pt stopped taking med Hydralazine Hcl* (Hydralazine Hcl*), 25 MG ORAL EVERY 8 HOURS, (Reported) Discontinued Reason: MD discontinued med Meropenem (Merrem), 1 GM IV, (Reported) Discontinued Reason: Pt stopped taking med Mirtazapine* (Mirtazapine*), 7.5 MG ORAL BEDTIME, (Reported) Discontinued Reason: Pt stopped taking med No Known Medications* (NKM - No Known Medications*), 0 ., (Reported) Discontinued Reason: Pt stopped taking med Patient History Limited by: medical condition History Provided By: Patient, Medical Record, PMD Healthcare decision maker MICHAEL RICHARDSON Resuscitation status Full Code Advanced Directive on File unk Past Medical/Surgical History Past Medical/Surgical History: (1) Dyspnea (2) Respiratory distress (3) HCAP (healthcare-associated pneumonia) (4) Sacral decubitus ulcer, stage IV (5) Decubitus ulcer of both heels, unstageable (6) Pleural effusion (7) Sepsis (8) UTI (urinary tract infection) (9) Sacral pressure ulcer (10) Acute osteomyelitis of foot (11) Acute osteomyelitis of right calcaneus (12) Abscess of upper arm (13) Abscess (14) Rash and other nonspecific skin eruption (15) Renal failure (16) Open wound of both hips Review of Systems All Other Systems: negative except mentioned in HPI Physical Exam General Appearance: no apparent distress Lines, tubes and drains: PICC HEENT: mucous membranes moist Neck: normal inspection Respiratory/Chest: normal breath sounds, no respiratory distress Cardiovascular/Chest: normal rate, regular rhythm Abdomen: soft, no organomegaly, no mass Extremities: other Skin Exam: other Neurologic: alert, responsive Last 24 Hour Vital Signs Date Time Temp Pulse Resp B/P (MAP) Pulse Ox O2 Delivery O2 Flow Rate FiO2 11/03/18 12:01 88 11/03/18 12:00 Nasal Cannula 2.0 11/03/18 12:00 97.9 89 16 123/71 (88) 99 11/03/18 08:03 85 11/03/18 08:00 Nasal Cannula 2.0 11/03/18 08:00 97.6 96 15 114/77 (89) 98 11/03/18 04:00 Nasal Cannula 2.0 11/03/18 04:00 86 11/03/18 04:00 97.8 84 14 121/73 (89) 100 11/03/18 00:00 Nasal Cannula 2.0 11/03/18 00:00 98.2 95 16 119/64 (82) 100 11/03/18 00:00 93 11/02/18 20:00 93 11/02/18 20:00 Nasal Cannula 2.0 11/02/18 20:00 98.0 88 10 112/56 (74) 100 11/02/18 18:00 85 11 109/28 (55) 100 11/02/18 17:00 88 9 112/26 (54) 100 11/02/18 16:00 97.5 86 5 112/26 (54) 100 11/02/18 16:00 85 Intake and Output 11/02/18 11/03/18 19:00 07:00 Intake Total 160 ml Output Total 1000 ml Balance -840 ml Intake Oral 50 ml IV Total 110 ml Output Hemodialysis UF 1000 ml Laboratory Tests Test 11/03/18 08:35 White Blood Count 9.7 K/UL (4.8-10.8) Red Blood Count 3.08 M/UL (4.20-5.40) L Hemoglobin 8.9 G/DL (12.0-16.0) L Hematocrit 29.6 % (37.0-47.0) L Mean Corpuscular Volume 96 FL (80-99) Mean Corpuscular Hemoglobin 28.9 PG (27.0-31.0) Mean Corpuscular Hemoglobin Concent 30.0 G/DL (32.0-36.0) L Red Cell Distribution Width 16.1 % (11.6-14.8) H Platelet Count 146 K/UL (150-450) L Mean Platelet Volume 5.8 FL (6.5-10.1) L Neutrophils (%) (Auto) 51.5 % (45.0-75.0) Lymphocytes (%) (Auto) 32.8 % (20.0-45.0) Monocytes (%) (Auto) 10.6 % (1.0-10.0) H Eosinophils (%) (Auto) 3.2 % (0.0-3.0) H Basophils (%) (Auto) 2.0 % (0.0-2.0) Sodium Level 140 MMOL/L (136-145) Potassium Level 4.0 MMOL/L (3.5-5.1) Chloride Level 105 MMOL/L (98-107) Carbon Dioxide Level 29 MMOL/L (21-32) Anion Gap 6 mmol/L (5-15) Blood Urea Nitrogen 25 mg/dL (7-18) H Creatinine 3.1 MG/DL (0.55-1.30) H Estimat Glomerular Filtration Rate 16.5 mL/min (>60) Glucose Level 67 MG/DL (74-106) L Calcium Level 8.2 MG/DL (8.5-10.1) L Height (Feet): 5 Height (Inches): 6.00 Weight (Pounds): 169 Medications Current Medications Medications (Trade) Dose Ordered Sig/Alexandru Route PRN Reason Start Time Stop Time Status Last Admin Dose Admin Acetaminophen (Tylenol) 325 mg Q6H PRN ORAL Mild Pain/Temp > 100.5 11/02/18 19:00 12/01/18 18:59 Ascorbic Acid (Vitamin C) 500 mg DAILY ORAL 11/03/18 09:00 12/02/18 08:59 11/03/18 09:20 Atorvastatin Calcium (Lipitor) 40 mg BEDTIME ORAL 11/02/18 21:00 12/01/18 20:59 11/02/18 21:24 Calcium Acetate (Phoslo) 1,334 mg TIAC ORAL 11/03/18 06:30 12/02/18 06:29 Chlorhexidine Gluconate (Lashae-Hex 2%) 1 applic DAILY@2000 TOPIC 11/03/18 20:00 12/03/18 19:59 Dextrose (Dextrose 50%) 25 ml Q30M PRN IV Hypoglycemia 11/02/18 19:00 12/01/18 19:59 11/03/18 11:22 Dextrose (Dextrose 50%) 50 ml Q30M PRN IV Hypoglycemia 11/02/18 19:00 12/01/18 19:59 Duloxetine HCl (Cymbalta) 60 mg QHS ORAL 11/02/18 21:00 12/01/18 20:59 11/02/18 21:24 Epoetin Vishal (Procrit (for ESRD on dialysis)) 7,500 units MON-WED-FRI SUBQ 11/03/18 21:00 12/01/18 20:59 Famotidine (Pepcid) 20 mg DAILY ORAL 11/03/18 09:00 12/02/18 08:59 11/03/18 09:21 Folic Acid (Folate) 1 mg DAILY ORAL 11/03/18 09:00 12/02/18 08:59 11/03/18 09:21 Heparin Sodium (Porcine) (Heparin 5000 units/ml) 5,000 units EVERY 8 HOURS SUBQ 11/02/18 22:00 1/9/19 21:59 11/03/18 13:59 Insulin Aspart (NovoLOG) BEFORE MEALS AND HS SUBQ 11/02/18 21:00 12/01/18 20:59 Mirtazapine (Remeron) 15 mg BEDTIME ORAL 11/02/18 21:00 12/01/18 20:59 11/02/18 21:24 Morphine Sulfate (Morphine Sulfate) 1 mg Q4H PRN IVP Severe Pain (Pain Scale 7-10) 11/02/18 21:30 11/09/18 21:29 11/02/18 21:27 Oxycodone/ Acetaminophen (Percocet 10/325) 1 tab Q6H PRN ORAL Moderate Pain (Pain Scale 4-6) 11/02/18 19:00 11/08/18 18:59 Oxycodone/ Acetaminophen (Percocet 5-325) 1 tab Q4H PRN ORAL Moderate [place] Pain (5-7) 11/02/18 19:00 11/08/18 18:59 Sodium Hypochlorite (Dakin's Quarter Strength) 1 applic DAILY TOPIC 11/04/18 09:00 12/02/18 11:29 Vancomycin HCl (Vanco rx to dose) 1 ea DAILY PRN MISC Per rx protocol 11/03/18 09:00 12/01/18 19:59 Zinc Sulfate (Zinc Sulfate) 220 mg DAILY ORAL 11/03/18 09:00 12/02/18 08:59 11/03/18 09:21 Assessment/Plan Problem List: (1) Abscess of upper arm Assessment & Plan: right upper extremity Antecubital AC fossa abscess. etiology unknown. at first area of induration / cellulitis but since has opened and draining pus. leukocytosis resolved multiple other wounds but those are chronic right arm picc but more proximal to abscess and do not seem to be related -ultrasound ordered to ensure abscess resolving with spontaneous drainage -dressing changes TID and prn -will monitor clinically. if not improved will require formal I&D thank you ICD Codes: L02.419 - Cutaneous abscess of limb, unspecified SNOMED: 66517137 (2) Sacral decubitus ulcer, stage IV Assessment & Plan: Pt presents with multiple Full thickness and unstageable pressure injuries. Abscess that is oozing moderate amt purulent exudate L upper ext.Pt's hygiene grossly neglected. Full thickness pressure injury L hip(L)11cm x (W)26cm with scattered mixed soft necrosis and slough wound bed and along borders .Periwound dark and indurated. Small amt brownish, malodorous exudate noted.Pressure injury to L ischium (L)2cm x (W)2.4cm with 100% soft necrosis , marginal erythema along borders.Periwound with dark skin pigmentation without erythema or induration.Full thickness pressure injury R hip (L)16.5cm x (W)11cm x (D)2cm. Mixed soft necrosis and slough to wound bed with Thick layer of soft necrosis along borders .Periwound dark without induration.Inferiorly to R hip wound is second full thickness pressure injury (L)2cm x (W)5.5cm with 100% yellow slough. Sacrum black with fluctuance(L)9.7cm x (W)13.3cm. Scattered small openings that are dry noted to wound bed. Periwound is intact. Dark skin tone without erythema or induration noted to R ischium.Historical scars noted to medial aspect of R thigh. Full thickness ulcer with 100% soft necrosis noted to posterior L tibia(L)6cm x (W)2.5cm .periwound dry and intact without erythema.Dry scaling skin both feet and web spaces of metatarsals.Dry eschar noted to 1st ,2nd .4th and 5th metatarsals of L foot .Unstable eschar noted to dorsum L 3rd metatarsal. Stable dry eschar noted to L hallux(L)1.7cm x (W) 1.6cm. Stable dry eschar noted to distal /lateral L foot (L)0.5cm x (W)0.7cm. Edges and periwound are intact. Full thickness pressure injury L heel with 90% necrosis with bordering erythema and soft slough (L)6cm x (W)6.6cm. Periwound dry and boggy without erythema. Full thickness pressure injury R heel with approx 40% necrosis,60% ivory with slough ,(+) maceration along borders .minimal brownish exudate.No odor noted. Periwound boggy without erythema. Dark skin pigmentation noted to 1-5th metatarsals R foot. Stable eschar noted to R hallux (L)1.5cm x (W)1cm.periwound is dry and intact. Tx.Plan: Apply Dakin's 0.025% soaked gauze to pressure injuries R Hip,L Hip,L Ischium and Sacrum. Cover with ABD pads and secure with Tegaderm drsgs Daily and prn. Apply Betadine to wounds R and L foot wounds .Cover with ABD and wrap with Kerlix Daily and prn. Apply Betadine to wound posterior R tibia.Cover with Abd pad and wrap with Kerlix Daily and prn. Reposition at least every 2 hours or as tolerated. Air Fluidized mattress. Off-load heels with pillow. ICD Codes: L89.154 - Pressure ulcer of sacral region, stage 4 SNOMED: 159695518, [id number] Alfred Hodges Nov 03, 2018 15:50
[2018-11-03 16:00] VITALS: BP 142/62
[2018-11-03] MEDS: Dakin's 0.125% Soln (Quarter Strength) 16oz TOPIC SCH (16:17)
[2018-11-03] MEDS: Morphine Sulfate 2mg/ml Inj IVP PRN ×2 (16:29→23:34)
--- NOTE | 2018-11-03 17:50 | General Progress Note ---
Assessment/Plan Problem List: (1) Abscess ICD Codes: L02.91 - Cutaneous abscess, unspecified SNOMED: 343338659 (2) Sepsis ICD Codes: A41.9 - Sepsis, unspecified organism SNOMED: 76216355 (3) Sacral pressure ulcer ICD Codes: L89.159 - Pressure ulcer of sacral region, unspecified stage SNOMED: 530246022 (4) Sacral decubitus ulcer, stage IV ICD Codes: L89.154 - Pressure ulcer of sacral region, stage 4 SNOMED: 427286928, 360028860 (5) Acute osteomyelitis of right calcaneus ICD Codes: M86.171 - Other acute osteomyelitis, right ankle and foot SNOMED: 149251800 Status: stable Assessment/Plan iv abx follow up cultures wound care HD per renal dvt/stress ulcer prophylaxis Subjective ROS Limited/Unobtainable: No Constitutional: Reports: malaise, weakness HEENT: Reports: no symptoms Cardiovascular: Reports: no symptoms Respiratory: Reports: no symptoms Gastrointestinal/Abdominal: Reports: poor appetite Genitourinary: Reports: no symptoms Neurologic/Psychiatric: Reports: no symptoms Endocrine: Reports: no symptoms Hematologic/Lymphatic: Reports: no symptoms Allergies: Coded Allergies: No Known Allergies (Unverified , 04/11/18) All Systems: reviewed and negative except above Subjective no events. stable. +blood cultures noted. Objective Last 24 Hour Vital Signs Date Time Temp Pulse Resp B/P (MAP) Pulse Ox O2 Delivery O2 Flow Rate FiO2 11/03/18 16:00 97.9 92 16 142/62 (88) 100 11/03/18 16:00 Nasal Cannula 2.0 11/03/18 15:34 87 11/03/18 12:01 88 11/03/18 12:00 Nasal Cannula 2.0 11/03/18 12:00 97.9 89 16 123/71 (88) 99 11/03/18 08:03 85 11/03/18 08:00 Nasal Cannula 2.0 11/03/18 08:00 97.6 96 15 114/77 (89) 98 11/03/18 04:00 Nasal Cannula 2.0 11/03/18 04:00 86 11/03/18 04:00 97.8 84 14 121/73 (89) 100 11/03/18 00:00 Nasal Cannula 2.0 11/03/18 00:00 98.2 95 16 119/64 (82) 100 11/03/18 00:00 93 11/02/18 20:00 93 11/02/18 20:00 Nasal Cannula 2.0 11/02/18 20:00 98.0 88 10 112/56 (74) 100 11/02/18 18:00 85 11 109/28 (55) 100 Intake and Output 11/02/18 11/03/18 19:00 07:00 Intake Total 160 ml Output Total 1000 ml Balance -840 ml Intake Oral 50 ml IV Total 110 ml Output Hemodialysis UF 1000 ml Laboratory Tests 11/03/18 08:35: White Blood Count 9.7, Red Blood Count 3.08L, Hemoglobin 8.9L, Hematocrit 29.6L , Mean Corpuscular Volume 96, Mean Corpuscular Hemoglobin 28.9, Mean Corpuscular Hemoglobin Concent 30.0L, Red Cell Distribution Width 16.1H, Platelet Count 146L, Mean Platelet Volume 5.8L, Neutrophils (%) (Auto) 51.5, Lymphocytes (%) (Auto) 32.8, Monocytes (%) (Auto) 10.6H, Eosinophils (%) (Auto) 3.2H, Basophils (%) (Auto) 2.0, Sodium Level 140, Potassium Level 4.0, Chloride Level 105, Carbon Dioxide Level 29, Anion Gap 6, Blood Urea Nitrogen 25H, Creatinine 3.1H, Estimat Glomerular Filtration Rate 16.5, Glucose Level 67L, Calcium Level 8.2L Height (Feet): 5 Height (Inches): 6.00 Weight (Pounds): 169 General Appearance: WD/WN, alert Neck: supple Cardiovascular: normal rate Respiratory/Chest: chest wall non-tender, lungs clear, normal breath sounds Abdomen: normal bowel sounds, non tender, soft, no organomegaly Edema: no edema noted Arm (L), no edema noted Arm (R), no edema noted Leg (L), no edema noted Leg (R), no edema noted Pedal (L), no edema noted Pedal (R), no edema noted Generalized Neurologic: alert, responsive Holden Quiroz MD Nov 03, 2018 17:50
[2018-11-03 20:00] VITALS: BP 129/72
[2018-11-03] MEDS: Dyna-Hex 2% Top Sol 2oz TOPIC SCH (20:33)
[2018-11-03] MEDS: Atorvastatin 20mg tab ORAL SCH (20:33)
[2018-11-03] MEDS: DULoxetine 30mg cap ORAL SCH (20:34)
[2018-11-03] MEDS: Epogen (for ESRD on dialysis) SUBQ SCH (21:21)
[2018-11-04] VITALS: BP 136/63
[2018-11-04 04:00] VITALS: BP 139/44
[2018-11-04] MEDS: Heparin 5000 units/ml inj SUBQ SCH ×3 (06:05→22:00)
[2018-11-04] MEDS: Calcium Acetate 667mg Tab ORAL SCH ×3 (06:09→16:13)
[2018-11-04] MEDS: NovoLOG Insulin Flexpen SUBQ SCH ×4 (06:30→21:00)
[2018-11-04 07:44] VITALS: BP 123/80
--- NOTE | 2018-11-04 08:17 | Nephrology Progress Note ---
Assessment/Plan Assessment/Plan A/P 1) ESRD- HD TTS - orders placed. Use AVF and remove permacath if viable 2) Sepsis/Cellulitis- Abx 3) Anemia of CKD- on EPO 3 x week 4) SHPT- on phos binder 5) Sacral Wounds- per wound care Subjective Date patient seen: Nov 04, 2018 Time patient seen: 08:13 ROS Limited/Unobtainable: No Constitutional: Reports: weakness Allergies: Coded Allergies: No Known Allergies (Unverified , 04/11/18) Subjective Patient fatigued. Sleeping comfortably in no distress Objective Last 24 Hour Vital Signs Date Time Temp Pulse Resp B/P (MAP) Pulse Ox O2 Delivery O2 Flow Rate FiO2 11/04/18 08:06 85 11/04/18 07:44 97.9 85 17 123/80 (94) 100 11/04/18 04:00 88 11/04/18 04:00 Nasal Cannula 2.0 11/04/18 04:00 97.5 89 16 139/44 (75) 100 11/04/18 00:00 Nasal Cannula 2.0 11/04/18 00:00 97.5 96 15 136/63 (87) 100 11/04/18 00:00 95 11/03/18 20:00 97.9 92 16 129/72 (91) 100 11/03/18 20:00 91 11/03/18 20:00 Nasal Cannula 2.0 11/03/18 16:00 97.9 92 16 142/62 (88) 100 11/03/18 16:00 Nasal Cannula 2.0 11/03/18 15:34 87 11/03/18 12:01 88 11/03/18 12:00 Nasal Cannula 2.0 11/03/18 12:00 97.9 89 16 123/71 (88) 99 Intake and Output 11/03/18 11/04/18 19:00 07:00 Intake Total 30 ml 0 ml Balance 30 ml 0 ml Intake Oral 30 ml 0 ml Laboratory Tests 11/03/18 08:35: White Blood Count 9.7, Red Blood Count 3.08L, Hemoglobin 8.9L, Hematocrit 29.6L , Mean Corpuscular Volume 96, Mean Corpuscular Hemoglobin 28.9, Mean Corpuscular Hemoglobin Concent 30.0L, Red Cell Distribution Width 16.1H, Platelet Count 146L, Mean Platelet Volume 5.8L, Neutrophils (%) (Auto) 51.5, Lymphocytes (%) (Auto) 32.8, Monocytes (%) (Auto) 10.6H, Eosinophils (%) (Auto) 3.2H, Basophils (%) (Auto) 2.0, Sodium Level 140, Potassium Level 4.0, Chloride Level 105, Carbon Dioxide Level 29, Anion Gap 6, Blood Urea Nitrogen 25H, Creatinine 3.1H, Estimat Glomerular Filtration Rate 16.5, Glucose Level 67L, Calcium Level 8.2L 11/04/18 03:35: Random Vancomycin Level 29.3 11/04/18 07:35: Sodium Level [Pending], Potassium Level [Pending], Chloride Level [Pending], Carbon Dioxide Level [Pending], Blood Urea Nitrogen [Pending], Creatinine [ Pending], Estimat Glomerular Filtration Rate [Pending], Glucose Level [Pending] , Calcium Level [Pending] Height (Feet): 5 Height (Inches): 6.00 Weight (Pounds): 153 General Appearance: no apparent distress EENT: normal ENT inspection Neck: normal alignment, supple Cardiovascular: normal rate, regular rhythm Respiratory/Chest: lungs clear, normal breath sounds Abdomen: non tender, soft Edema: 1+ Arm (L), 1+ Arm (R), 1+ Leg (L), 1+ Leg (R) Rajat Turner MD Nov 04, 2018 08:17
[2018-11-04 08:26] LABS: ANION GAP 5 mmol/L (5-15); BLOOD UREA NITROGEN 28 mg/dL (7-18); CALCIUM 8.2 MG/DL (8.5-10.1); CARBON DIOXIDE 30 MMOL/L (21-32); CHLORIDE 105 MMOL/L (98-107); CREATININE 3.8 MG/DL (0.55-1.30); POTASSIUM 4.1 MMOL/L (3.5-5.1); SODIUM 140 MMOL/L (136-145)
[2018-11-04] MEDS: Ascorbic Acid 500mg tab ORAL SCH ×2 (08:27→09:00)
[2018-11-04] MEDS: Zinc Sulfate 220mg cap ORAL SCH ×2 (08:27→09:00)
--- NOTE | 2018-11-04 09:03 | Diagnostic Imaging Report ---
Indication: Inflammation of the right forearm Technique: Grayscale and duplex images of the area of interest in the right forearm Comparison: none Findings: There is edema of the subcutaneous fat in the right forearm. There is a there is an 11 x 6 mm hypoechoic focus within the subcutaneous fat which could represent a small abscess. No peripheral hyperemia noted, however. Impression: Possible small 11 x 6 mm abscess in the subcutaneous fat of the right forearm in the area of interest
[2018-11-04 11:49] VITALS: BP 115/44
--- NOTE | 2018-11-04 12:31 | Consultation ---
History of Present Illness General Chief Complaint: Skin Rash/Abscess Reason for Consultation: right arm abscess Present Illness HPI 43-year-old female. She has history of end-stage renal disease, on chronic hemodialysis, hypertension, and diabetes. She has history of chronic wounds on the hips. She has been on IV antibiotic. the pt pw failure to thrive and severe anxiety the pt has insomnia. no si/hi Allergies: Coded Allergies: No Known Allergies (Unverified , 04/11/18) Medication History Scheduled Amino Acids/Protein Hydrolys (Pro-Stat Awc Liquid), 30 ML PO TID, (Reported) Ascorbic Acid* (Ascorbic Acid*), 500 MG ORAL DAILY, (Reported) Atorvastatin Calcium* (Atorvastatin Calcium*), 40 MG ORAL BEDTIME, (Reported) Calcium Acetate (Calcium Acetate), 1,334 MG PO AC, (Reported) Chlorhexidine Gluconate* (Hibiclens*), 118 ML TP DAILY, (Reported) Collagenase Clostridium Hist. (Collagenase), 1 EACH TP Q12HR, (Reported) Duloxetine Hcl* (Cymbalta*), 60 MG ORAL DAILY, (Reported) Epoetin Vishal (Procrit), 7,500 UNIT SUBQ 3XW, (Reported) Famotidine (Famotidine), 20 MG ORAL DAILY, (Reported) Folic Acid* (Folic Acid*), 1 MG ORAL DAILY, (Reported) Heparin Sod (Porcine) (Heparin Sodium*), 5,000 UNITS SUBQ EVERY 8 HOURS, ( Reported) Insulin Aspart (Novolog Flexpen), SUBQ BEFORE MEALS AND HS, (Reported) Insulin Regular, Human* (Novolin R*), 0 SUBQ .SLIDING SCALE, (Reported) Meropenem (Meropenem), 500 MG IV DAILY, (Reported) Mirtazapine* (Remeron*), 15 MG ORAL BEDTIME, (Reported) Nut.tx.impaired Renal Fxn,Soy (Nepro Carb Steady), Unknown Dose PO TID, ( Reported) Zinc Sulfate (Zinc Sulfate*), 220 MG ORAL DAILY, (Reported) Scheduled PRN Acetaminophen* (Acetaminophen 325MG Tablet*), 650 MG ORAL Q6HR PRN for Fever/ Headache/Mild Pain, (Reported) Ipratropium Antelope 0.5MG/2.5ML (Ipratropium Antelope 0.5MG/2.5ML), 0.5 MG HHN Q6H PRN for Shortness of Breath, (Reported) Oxycodone Hcl/Acetaminophen 10-325 Mg Tablet (Percocet 10-325 Mg Tablet*), 1 TAB ORAL Q6H PRN for For Pain, (Reported) Oxycodone Hcl/Acetaminophen 5-325* (Oxycodone-Acetaminophen 5-325*), 1 TAB ORAL Q4H PRN for Pain Scale (3-5), (Reported) Oxycodone Hcl/Acetaminophen 5-325* (Oxycodone-Acetaminophen 5-325*), 2 TAB ORAL Q4H PRN for Pain Scale (6-10), (Reported) Miscellaneous Medications Povidone-Iodine (Betadine), 3,780 ML TP, (Reported) Sodium Hypochlorite (Dakin's), 473 ML MC, (Reported) Vancomycin Hcl (Vancomycin Hcl), 0 IVPB, (Reported) Discontinued Medications Acetaminophen* (Acetaminophen 325MG Tablet*), 650 MG ORAL Q4H PRN for Mild Pain (Pain Scale 1-3), (Reported) Discontinued Reason: Pt stopped taking med Amlodipine-Atorvastatin 10-20 Mg (Amlodipine-Atorvastatin 10-20 Mg), 1 TAB ORAL DAILY, (Reported) Discontinued Reason: Pt stopped taking med Calcium Acetate (Calcium Acetate), 667 MG PO, (Reported) Discontinued Reason: Pt stopped taking med Clonidine Hcl* (Catapres*), 0.3 MG ORAL Q8HR, (Reported) Discontinued Reason: Pt stopped taking med Docusate Sodium* (Docusate Sodium*), 100 MG ORAL THREE TIMES A DAY, (Reported) Discontinued Reason: Pt stopped taking med Heparin Sod (Porcine) (Heparin Sodium*), 5,000 UNITS SUBQ EVERY 8 HOURS, ( Reported) Discontinued Reason: Pt stopped taking med Hydralazine Hcl* (Hydralazine Hcl*), 25 MG ORAL EVERY 8 HOURS, (Reported) Discontinued Reason: discontinued med Meropenem (Merrem), 1 GM IV, (Reported) Discontinued Reason: Pt stopped taking med Mirtazapine* (Mirtazapine*), 7.5 MG ORAL BEDTIME, (Reported) Discontinued Reason: Pt stopped taking med No Known Medications* (NKM - No Known Medications*), 0 ., (Reported) Discontinued Reason: Pt stopped taking med Patient History Limited by: medical condition History Provided By: Patient, PMD Healthcare decision maker MICHAEL RICHARDSON Resuscitation status Full Code Advanced Directive on File unk Past Medical/Surgical History Past Medical/Surgical History: (1) Abscess (2) Rash and other nonspecific skin eruption (3) Open wound of both hips (4) Abscess of upper arm (5) Dyspnea (6) Respiratory distress (7) Pleural effusion (8) Renal failure (9) Sepsis (10) UTI (urinary tract infection) (11) Acute osteomyelitis of foot (12) Sacral pressure ulcer (13) HCAP (healthcare-associated pneumonia) (14) Sacral decubitus ulcer, stage IV (15) Acute osteomyelitis of right calcaneus (16) Decubitus ulcer of both heels, unstageable (17) Poor appetite Review of Systems Psychiatric: Reports: prior hx, anxiety, depressed feelings Physical Exam General Appearance: no apparent distress, alert, cachetic Neurologic: oriented x 3, responsive, depressed affect Last 24 Hour Vital Signs Date Time Temp Pulse Resp B/P (MAP) Pulse Ox O2 Delivery O2 Flow Rate FiO2 11/04/18 12:00 88 11/04/18 12:00 Nasal Cannula 2.0 11/04/18 11:49 97.6 87 18 115/44 (67) 100 11/04/18 08:06 85 11/04/18 08:00 Nasal Cannula 2.0 11/04/18 07:44 97.9 85 17 123/80 (94) 100 11/04/18 04:00 88 11/04/18 04:00 Nasal Cannula 2.0 11/04/18 04:00 97.5 89 16 139/44 (75) 100 11/04/18 00:00 Nasal Cannula 2.0 11/04/18 00:00 97.5 96 15 136/63 (87) 100 11/04/18 00:00 95 11/03/18 20:00 97.9 92 16 129/72 (91) 100 11/03/18 20:00 91 11/03/18 20:00 Nasal Cannula 2.0 11/03/18 16:00 97.9 92 16 142/62 (88) 100 11/03/18 16:00 Nasal Cannula 2.0 11/03/18 15:34 87 Intake and Output 11/03/18 11/04/18 19:00 07:00 Intake Total 30 ml 0 ml Balance 30 ml 0 ml Intake Oral 30 ml 0 ml Laboratory Tests Test 11/04/18 03:35 11/04/18 07:35 Random Vancomycin Level 29.3 ug/mL Sodium Level 140 MMOL/L (136-145) Potassium Level 4.1 MMOL/L (3.5-5.1) Chloride Level 105 MMOL/L (98-107) Carbon Dioxide Level 30 MMOL/L (21-32) Anion Gap 5 mmol/L (5-15) Blood Urea Nitrogen 28 mg/dL (7-18) H Creatinine 3.8 MG/DL (0.55-1.30) H Estimat Glomerular Filtration Rate 13.1 mL/min (>60) Glucose Level 85 MG/DL (74-106) Calcium Level 8.2 MG/DL (8.5-10.1) L Height (Feet): 5 Height (Inches): 6.00 Weight (Pounds): 153 Medications Current Medications Medications (Trade) Dose Ordered Sig/Alexandru Route PRN Reason Start Time Stop Time Status Last Admin Dose Admin Acetaminophen (Tylenol) 325 mg Q6H PRN ORAL Mild Pain/Temp > 100.5 11/02/18 19:00 12/01/18 18:59 Ascorbic Acid (Vitamin C) 500 mg DAILY ORAL 11/03/18 09:00 12/02/18 08:59 11/04/18 08:27 Atorvastatin Calcium (Lipitor) 40 mg BEDTIME ORAL 11/02/18 21:00 12/01/18 20:59 11/03/18 20:33 Calcium Acetate (Phoslo) 1,334 mg TIAC ORAL 11/03/18 06:30 12/02/18 06:29 Chlorhexidine Gluconate (Lashae-Hex 2%) 1 applic DAILY@1999 TOPIC 11/03/18 20:00 12/03/18 19:59 11/03/18 20:33 Dextrose (Dextrose 50%) 25 ml Q30M PRN IV Hypoglycemia 11/02/18 19:00 12/01/18 19:59 11/04/18 11:36 Dextrose (Dextrose 50%) 50 ml Q30M PRN IV Hypoglycemia 11/02/18 19:00 12/01/18 19:59 11/04/18 06:09 Duloxetine HCl (Cymbalta) 60 mg QHS ORAL 11/02/18 21:00 12/01/18 20:59 11/03/18 20:34 Epoetin Vishal (Procrit (for ESRD on dialysis)) 7,500 units MON-WED-FRI SUBQ 11/03/18 21:00 12/01/18 20:59 11/03/18 21:21 Famotidine (Pepcid) 20 mg DAILY ORAL 11/03/18 09:00 12/02/18 08:59 11/04/18 08:27 Folic Acid (Folate) 1 mg DAILY ORAL 11/03/18 09:00 12/02/18 08:59 11/04/18 08:27 Heparin Sodium (Porcine) (Heparin 5000 units/ml) 5,000 units EVERY 8 HOURS SUBQ 11/02/18 22:00 12/01/18 21:59 11/04/18 06:05 Insulin Aspart (NovoLOG) BEFORE MEALS AND HS SUBQ 11/02/18 21:00 12/01/18 20:59 Mirtazapine (Remeron) 15 mg BEDTIME ORAL 11/02/18 21:00 12/01/18 20:59 11/03/18 20:33 Morphine Sulfate (Morphine Sulfate) 1 mg Q4H PRN IVP Severe Pain (Pain Scale 7-10) 11/02/18 21:30 11/09/18 21:29 11/03/18 23:34 Oxycodone/ Acetaminophen (Percocet 10/325) 1 tab Q6H PRN ORAL Moderate Pain (Pain Scale 4-6) 11/02/18 19:00 11/08/18 18:59 Oxycodone/ Acetaminophen (Percocet 5-325) 1 tab Q4H PRN ORAL Moderate Breakthru Pain (5-7) 11/02/18 19:00 11/08/18 18:59 Sodium Hypochlorite (Dakin's Quarter Strength) 1 applic DAILY TOPIC 11/04/18 09:00 12/02/18 11:29 11/03/18 16:17 Vancomycin HCl (Vanco rx to dose) 1 ea DAILY PRN MISC Per rx protocol 11/03/18 09:00 12/01/18 19:59 Zinc Sulfate (Zinc Sulfate) 220 mg DAILY ORAL 11/03/18 09:00 12/02/18 08:59 11/04/18 08:27 Assessment/Plan Problem List: (1) Anxiety disorder ICD Codes: F41.9 - Anxiety disorder, unspecified SNOMED: 285145936 (2) Poor appetite ICD Codes: R63.0 - Anorexia SNOMED: 79792848 Status: unchanged Assessment/Plan Remeron 15mg qhs provided navarro/Rose Perea MD Nov 04, 2018 12:31
[2018-11-04] MEDS ORDERED: Amikacin Rx to dose MISC PRN (13:15)
[2018-11-04] MEDS ORDERED: Amikacin 500 MG in NS 110 ML IV SCH (14:00)
[2018-11-04] MEDS: D5NS 1,000 ML IV SCH (14:13)
[2018-11-04 15:40] VITALS: BP 136/42
--- NOTE | 2018-11-04 16:31 | General Progress Note ---
Assessment/Plan Problem List: (1) Abscess ICD Codes: L02.91 - Cutaneous abscess, unspecified SNOMED: 875704138 (2) Sepsis ICD Codes: A41.9 - Sepsis, unspecified organism SNOMED: 08119082 (3) Sacral pressure ulcer ICD Codes: L89.159 - Pressure ulcer of sacral region, unspecified stage SNOMED: 090735796 (4) Sacral decubitus ulcer, stage IV ICD Codes: L89.154 - Pressure ulcer of sacral region, stage 4 SNOMED: 921422625, 123655600 (5) Acute osteomyelitis of right calcaneus ICD Codes: M86.171 - Other acute osteomyelitis, right ankle and foot SNOMED: 045229353 Status: stable Assessment/Plan iv abx follow up cultures wound care HD per renal dvt/stress ulcer prophylaxis encourage po message left with Subjective ROS Limited/Unobtainable: No Constitutional: Reports: malaise, weakness HEENT: Reports: no symptoms Cardiovascular: Reports: no symptoms Gastrointestinal/Abdominal: Reports: poor appetite Genitourinary: Reports: no symptoms Neurologic/Psychiatric: Reports: pre-existing deficit Endocrine: Reports: no symptoms Hematologic/Lymphatic: Reports: anemia Allergies: Coded Allergies: No Known Allergies (Unverified , 04/11/18) All Systems: reviewed and negative except above Subjective no events. stable. +blood cultures noted. refusing po meds and food Objective Last 24 Hour Vital Signs Date Time Temp Pulse Resp B/P (MAP) Pulse Ox O2 Delivery O2 Flow Rate FiO2 11/04/18 16:10 88 11/04/18 16:00 Nasal Cannula 2.0 11/04/18 15:40 98.2 85 18 136/42 (73) 100 11/04/18 12:00 88 11/04/18 12:00 Nasal Cannula 2.0 11/04/18 11:49 97.6 87 18 115/44 (67) 100 11/04/18 08:06 85 11/04/18 08:00 Nasal Cannula 2.0 11/04/18 07:44 97.9 85 17 123/80 (94) 100 11/04/18 04:00 88 11/04/18 04:00 Nasal Cannula 2.0 11/04/18 04:00 97.5 89 16 139/44 (75) 100 11/04/18 00:00 Nasal Cannula 2.0 11/04/18 00:00 97.5 96 15 136/63 (87) 100 11/04/18 00:00 95 11/03/18 20:00 97.9 92 16 129/72 (91) 100 11/03/18 20:00 91 11/03/18 20:00 Nasal Cannula 2.0 Intake and Output 11/03/18 11/04/18 19:00 07:00 Intake Total 30 ml 0 ml Balance 30 ml 0 ml Intake Oral 30 ml 0 ml Laboratory Tests 11/04/18 03:35: Random Vancomycin Level 29.3 11/04/18 07:35: Sodium Level 140, Potassium Level 4.1, Chloride Level 105, Carbon Dioxide Level 30, Anion Gap 5, Blood Urea Nitrogen 28H, Creatinine 3.8H, Estimat Glomerular Filtration Rate 13.1, Glucose Level 85, Calcium Level 8.2L Height (Feet): 5 Height (Inches): 6.00 Weight (Pounds): 153 General Appearance: cachetic Neck: supple Cardiovascular: regular rhythm Respiratory/Chest: lungs clear Abdomen: normal bowel sounds, non tender, soft, no organomegaly Edema: no edema noted Arm (L), no edema noted Arm (R), no edema noted Leg (L), no edema noted Leg (R), no edema noted Pedal (L), no edema noted Pedal (R), no edema noted Generalized Skin: other - massive christiano hip wound and christiano foot Holden Quiroz MD Nov 04, 2018 16:31
--- NOTE | 2018-11-04 16:44 | General Surgery Progress Note ---
General Surgery-Progress Note Subjective Symptoms: improved Additional Comments doing well. in good spirits. receiving HD. US noted. Objective Last 24 Hour Vital Signs Date Time Temp Pulse Resp B/P (MAP) Pulse Ox O2 Delivery O2 Flow Rate FiO2 11/04/18 16:10 88 11/04/18 16:00 Nasal Cannula 2.0 11/04/18 15:40 98.2 85 18 136/42 (73) 100 11/04/18 12:00 88 11/04/18 12:00 Nasal Cannula 2.0 11/04/18 11:49 97.6 87 18 115/44 (67) 100 11/04/18 08:06 85 11/04/18 08:00 Nasal Cannula 2.0 11/04/18 07:44 97.9 85 17 123/80 (94) 100 11/04/18 04:00 88 11/04/18 04:00 Nasal Cannula 2.0 11/04/18 04:00 97.5 89 16 139/44 (75) 100 11/04/18 00:00 Nasal Cannula 2.0 11/04/18 00:00 97.5 96 15 136/63 (87) 100 11/04/18 00:00 95 11/03/18 20:00 97.9 92 16 129/72 (91) 100 11/03/18 20:00 91 11/03/18 20:00 Nasal Cannula 2.0 I&O Intake and Output 11/03/18 11/04/18 19:00 07:00 Intake Total 30 ml 0 ml Balance 30 ml 0 ml Intake Oral 30 ml 0 ml Dressing: saturated Wound: clean Drains: other Cardiovascular: RSR Respiratory: clear Abdomen: soft, flat, present bowel sounds Extremities: other Laboratory Tests Test 11/04/18 03:35 11/04/18 07:35 Random Vancomycin Level 29.3 ug/mL Sodium Level 140 MMOL/L (136-145) Potassium Level 4.1 MMOL/L (3.5-5.1) Chloride Level 105 MMOL/L (98-107) Carbon Dioxide Level 30 MMOL/L (21-32) Anion Gap 5 mmol/L (5-15) Blood Urea Nitrogen 28 mg/dL (7-18) H Creatinine 3.8 MG/DL (0.55-1.30) H Estimat Glomerular Filtration Rate 13.1 mL/min (>60) Glucose Level 85 MG/DL (74-106) Calcium Level 8.2 MG/DL (8.5-10.1) L Plan Problems: (1) Abscess of upper arm Assessment & Plan: right upper extremity Antecubital AC fossa abscess. etiology unknown. at first area of induration / cellulitis but since has opened and draining pus. leukocytosis resolved multiple other wounds but those are chronic right arm picc but more proximal to abscess and do not seem to be related US noted and small 1cm area of likely prior abscess which is draining spontaneously. drainage less today. cellulitis improving. -dressing changes TID and prn -will monitor clinically. -continue IV ABx thank you (2) Sacral decubitus ulcer, stage IV Assessment & Plan: Pt presents with multiple Full thickness and unstageable pressure injuries. Abscess that is oozing moderate amt purulent exudate L upper ext.Pt's hygiene grossly neglected. Full thickness pressure injury L hip(L)11cm x (W)26cm with scattered mixed soft necrosis and slough wound bed and along borders .Periwound dark and indurated. Small amt brownish, malodorous exudate noted.Pressure injury to L ischium (L)2cm x (W)2.4cm with 100% soft necrosis , marginal erythema along borders.Periwound with dark skin pigmentation without erythema or induration.Full thickness pressure injury R hip (L)16.5cm x (W)11cm x (D)2cm. Mixed soft necrosis and slough to wound bed with Thick layer of soft necrosis along borders .Periwound dark without induration.Inferiorly to R hip wound is second full thickness pressure injury (L)2cm x (W)5.5cm with 100% yellow slough. Sacrum black with fluctuance(L)9.7cm x (W)13.3cm. Scattered small openings that are dry noted to wound bed. Periwound is intact. Dark skin tone without erythema or induration noted to R ischium.Historical scars noted to medial aspect of R thigh. Full thickness ulcer with 100% soft necrosis noted to posterior L tibia(L)6cm x (W)2.5cm .periwound dry and intact without erythema.Dry scaling skin both feet and web spaces of metatarsals.Dry eschar noted to 1st ,2nd .4th and 5th metatarsals of L foot .Unstable eschar noted to dorsum L 3rd metatarsal. Stable dry eschar noted to L hallux(L)1.7cm x (W) 1.6cm. Stable dry eschar noted to distal /lateral L foot (L)0.5cm x (W)0.7cm. Edges and periwound are intact. Full thickness pressure injury L heel with 90% necrosis with bordering erythema and soft slough (L)6cm x (W)6.6cm. Periwound dry and boggy without erythema. Full thickness pressure injury R heel with approx 40% necrosis,60% ivory with slough ,(+) maceration along borders .minimal brownish exudate.No odor noted. Periwound boggy without erythema. Dark skin pigmentation noted to 1-5th metatarsals R foot. Stable eschar noted to R hallux (L)1.5cm x (W)1cm.periwound is dry and intact. Tx.Plan: Apply Dakin's 0.025% soaked gauze to pressure injuries R Hip,L Hip,L Ischium and Sacrum. Cover with ABD pads and secure with Tegaderm drsgs Daily and prn. Apply Betadine to wounds R and L foot wounds .Cover with ABD and wrap with Kerlix Daily and prn. Apply Betadine to wound posterior R tibia.Cover with Abd pad and wrap with Kerlix Daily and prn. Reposition at least every 2 hours or as tolerated. Air Fluidized mattress. Off-load heels with pillow. Alfred Hodges Nov 04, 2018 16:44
[2018-11-04 20:00] VITALS: BP 130/55
--- NOTE | 2018-11-04 20:15 | Consultation ---
DATE OF CONSULTATION: 11/04/2018 INFECTIOUS DISEASE CONSULTATION This consult is for coverage of Dr. Shafer. CONSULTING PHYSICIAN: Daniel Aguilar M.D. PRIMARY ATTENDING PHYSICIAN: Holden Quiroz M.D. REASON FOR CONSULT: Right arm abscess and osteomyelitis of heels. HISTORY OF PRESENT ILLNESS: The patient is a 43-year-old female who is a [facility] resident admitted on 11/01/2018 because of right arm swelling. The patient had a recent history of admission to [facility] and was discharged recently on early October. There is an abscess that opened spontaneously a few centimeters down the PICC line in the right upper extremity. The patient also has extensive ulceration and a bone scan showed bilateral heel osteomyelitis. PAST MEDICAL HISTORY: Significant for diabetes mellitus, end-stage renal disease, on hemodialysis, hypertension, pressure ulcer, bilateral hips, sacral, and bilateral heels, anemia, and secondary hyperparathyroidism. ALLERGIES: No known drug allergies. MEDICATIONS: Procrit, vitamin D, famotidine, vancomycin, zinc, PhosLo, heparin, morphine sulfate, atorvastatin, Cymbalta, insulin, Remeron, and Tylenol. SOCIAL HISTORY: skilled nursing resident. No history of ethanol, or drug abuse. . REVIEW OF SYSTEMS: The patient is a poor historian, sedated, has pain in the right arm. PHYSICAL EXAMINATION: VITAL SIGNS: Temperature 97.6, pulse 87, and blood pressure 115/44. GENERAL APPEARANCE: No acute distress. Seems to be thin. HEAD AND NECK: [place] conjunctivae. HEART: Normal rate. LUNGS: Clear. ABDOMEN: Soft and nontender. EXTREMITIES: Have edema in right upper extremity and right lower extremity, has a PICC line in right upper extremity, has skin ulceration induration below PICC line and antecubital fossa. SKIN: She has multiple pressure ulcers. LABORATORY AND DIAGNOSTIC DATA: WBC 9.7, hemoglobin 8.9, hematocrit 26.9, and platelets 146,000. Sodium 140, potassium 4.1, chloride 105, bicarbonate 30, BUN 28, creatinine 2.8, and glucose 85. Wound culture growing Providencia and coagulase negative staph. Blood culture is gram-positive cocci. Providencia is sensitive to Zosyn and amikacin, intermediate to ceftriaxone and cefepime and resistant to other antibiotics. IMPRESSION: 1. Bacteremia with gram-positive cocci. 2. Right arm abscess opened by itself growing multidrug resistant Providencia. 3. osteomyelitis of bilateral heels. 4. Diabetes mellitus. 5. End-stage renal disease, on hemodialysis. 6. Anemia. 7. Hypertension. RECOMMENDATION: 1. Remove the PICC line. 2. Continue intravenous vancomycin through hemodialysis line and start on IV amikacin through hemodialysis line. 3. Surgical and Podiatry evaluation is suggested. At the end of my exam, I thank Dr. Quiroz for involving me in the care of this patient. Daniel Aguilar M.D. DR: THELMA JOB#: [id number] CC: [id number]
[2018-11-04] MEDS: Dyna-Hex 2% Top Sol 2oz TOPIC SCH (20:44)
[2018-11-04] MEDS: DULoxetine 30mg cap ORAL SCH (20:45)
[2018-11-04] MEDS: Atorvastatin 20mg tab ORAL SCH (20:45)
[2018-11-04] MEDS: Morphine Sulfate 2mg/ml Inj IVP PRN (20:46)
[2018-11-05] VITALS: BP 120/68
[2018-11-05] MEDS: Morphine Sulfate 2mg/ml Inj IVP PRN ×2 (01:22→19:00)
[2018-11-05 04:00] VITALS: BP 106/74
[2018-11-05] MEDS: Heparin 5000 units/ml inj SUBQ SCH ×3 (05:36→22:36)
[2018-11-05 06:01] LABS: ANION GAP 7 mmol/L (5-15); BLOOD UREA NITROGEN 19 mg/dL (7-18); CALCIUM 7.9 MG/DL (8.5-10.1); CARBON DIOXIDE 27 MMOL/L (21-32); CHLORIDE 106 MMOL/L (98-107); CREATININE 2.7 MG/DL (0.55-1.30); POTASSIUM 4.4 MMOL/L (3.5-5.1); SODIUM 139 MMOL/L (136-145)
[2018-11-05] MEDS: Calcium Acetate 667mg Tab ORAL SCH ×3 (06:30→16:30)
[2018-11-05] MEDS: NovoLOG Insulin Flexpen SUBQ SCH ×4 (06:30→21:00)
--- NOTE | 2018-11-05 07:55 | Nephrology Progress Note ---
Assessment/Plan Assessment/Plan A/P 1) ESRD- HD TTS - orders placed 2) Sepsis/Cellulitis- Abx 3) Anemia of CKD- on EPO 4) SHPT- on phos binder 5) Sacral Wounds- per wound care Subjective Date patient seen: Nov 05, 2018 Time patient seen: 07:53 ROS Limited/Unobtainable: No Constitutional: Reports: weakness Allergies: Coded Allergies: No Known Allergies (Unverified , 04/11/18) Subjective Patient fatigued. Had HD yesterday Objective Last 24 Hour Vital Signs Date Time Temp Pulse Resp B/P (MAP) Pulse Ox O2 Delivery O2 Flow Rate FiO2 11/05/18 04:00 98.4 82 18 106/74 (85) 99 11/05/18 04:00 83 11/05/18 04:00 Nasal Cannula 2.0 11/05/18 00:00 98.1 88 18 120/68 (85) 96 11/05/18 00:00 Nasal Cannula 2.0 11/05/18 00:00 83 11/04/18 20:00 86 11/04/18 20:00 Nasal Cannula 2.0 11/04/18 20:00 97.9 90 18 130/55 (80) 99 11/04/18 16:10 88 11/04/18 16:00 Nasal Cannula 2.0 11/04/18 15:40 98.2 85 18 136/42 (73) 100 11/04/18 12:00 88 11/04/18 12:00 Nasal Cannula 2.0 11/04/18 11:49 97.6 87 18 115/44 (67) 100 11/04/18 08:06 85 11/04/18 08:00 Nasal Cannula 2.0 Intake and Output 11/04/18 11/05/18 18:59 06:59 Intake Total 312 ml 610 ml Output Total 2000 ml Balance -1688 ml 610 ml Intake Oral 60 ml IV Total 312 ml 550 ml Output Hemodialysis UF 2000 ml # Voids 1 # Bowel Movements 2 Laboratory Tests 11/05/18 03:40: Sodium Level 139, Potassium Level 4.4, Chloride Level 106, Carbon Dioxide Level 27, Anion Gap 7, Blood Urea Nitrogen 19H, Creatinine 2.7H, Estimat Glomerular Filtration Rate 19.4, Glucose Level 59L, Calcium Level 7.9L, Phosphorus Level 3.0, Random Vancomycin Level 21.3 Height (Feet): 5 Height (Inches): 6.00 Weight (Pounds): 160 General Appearance: no apparent distress, lethargic EENT: normal ENT inspection Neck: normal alignment, supple Cardiovascular: normal rate, regular rhythm Respiratory/Chest: lungs clear, normal breath sounds Abdomen: non tender, soft Edema: no edema noted Arm (L), no edema noted Arm (R), no edema noted Leg (L), no edema noted Leg (R), no edema noted Pedal (L), no edema noted Pedal (R), no edema noted Generalized Rajat Turner MD Nov 05, 2018 07:55
[2018-11-05 08:00] VITALS: BP 105/66
[2018-11-05] MEDS: Zinc Sulfate 220mg cap ORAL SCH (09:28)
[2018-11-05] MEDS: Ascorbic Acid 500mg tab ORAL SCH (09:28)
[2018-11-05] MEDS: D5NS 1,000 ML IV SCH (09:30)
--- NOTE | 2018-11-05 09:54 | General Progress Note ---
Assessment/Plan Problem List: (1) Abscess ICD Codes: L02.91 - Cutaneous abscess, unspecified SNOMED: 084932430 (2) Sepsis ICD Codes: A41.9 - Sepsis, unspecified organism SNOMED: 36564249 (3) Sacral pressure ulcer ICD Codes: L89.159 - Pressure ulcer of sacral region, unspecified stage SNOMED: 725725517 (4) Sacral decubitus ulcer, stage IV ICD Codes: L89.154 - Pressure ulcer of sacral region, stage 4 SNOMED: 424552816, 589407331 (5) Acute osteomyelitis of right calcaneus ICD Codes: M86.171 - Other acute osteomyelitis, right ankle and foot SNOMED: 764693790 Status: stable, progressing Assessment/Plan iv abx follow up cultures wound care HD per renal dvt/stress ulcer prophylaxis encourage po d/w with . he will bring in food and encourage the pt to eat Subjective ROS Limited/Unobtainable: No Constitutional: Reports: malaise, weakness HEENT: Reports: no symptoms Cardiovascular: Reports: no symptoms Respiratory: Reports: no symptoms Gastrointestinal/Abdominal: Reports: poor appetite Genitourinary: Reports: no symptoms Neurologic/Psychiatric: Reports: pre-existing deficit Endocrine: Reports: no symptoms Hematologic/Lymphatic: Reports: anemia Allergies: Coded Allergies: No Known Allergies (Unverified , 04/11/18) All Systems: reviewed and negative except above Subjective no events. stable. +blood cultures noted. refusing po meds and food d.w . states pt doesnt like the food. he will try to bring food in Objective Last 24 Hour Vital Signs Date Time Temp Pulse Resp B/P (MAP) Pulse Ox O2 Delivery O2 Flow Rate FiO2 11/05/18 08:00 98.1 84 18 105/66 (79) 100 11/05/18 07:49 82 11/05/18 04:00 98.4 82 18 106/74 (85) 99 11/05/18 04:00 83 11/05/18 04:00 Nasal Cannula 2.0 11/05/18 00:00 98.1 88 18 120/68 (85) 96 11/05/18 00:00 Nasal Cannula 2.0 11/05/18 00:00 83 11/04/18 20:00 86 11/04/18 20:00 Nasal Cannula 2.0 11/04/18 20:00 97.9 90 18 130/55 (80) 99 11/04/18 16:10 88 11/04/18 16:00 Nasal Cannula 2.0 11/04/18 15:40 98.2 85 18 136/42 (73) 100 11/04/18 12:00 88 11/04/18 12:00 Nasal Cannula 2.0 11/04/18 11:49 97.6 87 18 115/44 (67) 100 Intake and Output 11/04/18 11/05/18 18:59 06:59 Intake Total 312 ml 610 ml Output Total 2000 ml Balance -1688 ml 610 ml Intake Oral 60 ml IV Total 312 ml 550 ml Output Hemodialysis UF 2000 ml # Voids 1 # Bowel Movements 2 Laboratory Tests 11/05/18 03:40: Sodium Level 139, Potassium Level 4.4, Chloride Level 106, Carbon Dioxide Level 27, Anion Gap 7, Blood Urea Nitrogen 19H, Creatinine 2.7H, Estimat Glomerular Filtration Rate 19.4, Glucose Level 59L, Calcium Level 7.9L, Phosphorus Level 3.0, Random Vancomycin Level 21.3 Height (Feet): 5 Height (Inches): 6.00 Weight (Pounds): 160 Objective General Appearance: cachetic Neck: supple Cardiovascular: regular rhythm Respiratory/Chest: lungs clear Abdomen: normal bowel sounds, non tender, soft, no organomegaly Edema: no edema noted Arm (L), no edema noted Arm (R), no edema noted Leg (L), no edema noted Leg (R), no edema noted Pedal (L), no edema noted Pedal (R), no edema noted Generalized Skin: other - massive christiano hip wound and christiano foot Holden Quiroz MD Nov 05, 2018 09:54
--- NOTE | 2018-11-05 10:58 | Infectious Diseases Prog Note ---
"Assessment/Plan Assessment/Plan antibiotics : iv vancomycin, amikacin A 1. right arm abscess with coag neg staph | providencia 2. toe gangrene 3. bilateral heel osteomyelitis 4. renal failure on dialysis 5. diabetes mellitus 6. coag neg staph sepsis P 1. continue iv vancomycin 2. d/c amikacin 3. start zosyn 4. will follow up cultures Subjective ROS Limited/Unobtainable: Yes Allergies: Coded Allergies: No Known Allergies (Unverified , 04/11/18) Objective Vital Signs Last 24 Hour Vital Signs Date Time Temp Pulse Resp B/P (MAP) Pulse Ox O2 Delivery O2 Flow Rate FiO2 11/05/18 08:00 98.1 84 18 105/66 (79) 100 11/05/18 07:49 82 11/05/18 04:00 98.4 82 18 106/74 (85) 99 11/05/18 04:00 83 11/05/18 04:00 Nasal Cannula 2.0 11/05/18 00:00 98.1 88 18 120/68 (85) 96 11/05/18 00:00 Nasal Cannula 2.0 11/05/18 00:00 83 11/04/18 20:00 86 11/04/18 20:00 Nasal Cannula 2.0 11/04/18 20:00 97.9 90 18 130/55 (80) 99 11/04/18 16:10 88 11/04/18 16:00 Nasal Cannula 2.0 11/04/18 15:40 98.2 85 18 136/42 (73) 100 11/04/18 12:00 88 11/04/18 12:00 Nasal Cannula 2.0 11/04/18 11:49 97.6 87 18 115/44 (67) 100 Height (Feet): 5 Height (Inches): 6.00 Weight (Pounds): 160 Respiratory/Chest: lungs clear Cardiovascular: normal rate, regular rhythm, no gallop/murmur Abdomen: soft, non tender Extremities: no edema, other - heels necrotic, toes necrotic, right subclavian catheter, right arm PICC Laboratory Tests Test 11/05/18 03:40 Sodium Level 139 MMOL/L (136-145) Potassium Level 4.4 MMOL/L (3.5-5.1) Chloride Level 106 MMOL/L (98-107) Carbon Dioxide Level 27 MMOL/L (21-32) Anion Gap 7 mmol/L (5-15) Blood Urea Nitrogen 19 mg/dL (7-18) H Creatinine 2.7 MG/DL (0.55-1.30) H Estimat Glomerular Filtration Rate 19.4 mL/min (>60) Glucose Level 59 MG/DL (74-106) L Calcium Level 7.9 MG/DL (8.5-10.1) L Phosphorus Level 3.0 MG/DL (2.5-4.9) Random Vancomycin Level 21.3 ug/mL Current Medications Medications (Trade) Dose Ordered Sig/Alexandru Route PRN Reason Start Time Stop Time Status Last Admin Dose Admin Acetaminophen (Tylenol) 325 mg Q6H PRN ORAL Mild Pain/Temp > 100.5 11/02/18 19:00 12/01/18 18:59 Amikacin Protocol (Amikacin pharmacy to dose) 1 ea DAILY PRN MISC Per rx protocol 11/04/18 13:15 12/04/18 13:14 Ascorbic Acid (Vitamin C) 500 mg DAILY ORAL 11/03/18 09:00 12/02/18 08:59 11/05/18 09:28 Atorvastatin Calcium (Lipitor) 40 mg BEDTIME ORAL 11/02/18 21:00 12/01/18 20:59 11/04/18 20:45 Calcium Acetate (Phoslo) 1,334 mg TIAC ORAL 11/03/18 06:30 12/02/18 06:29 Chlorhexidine Gluconate (Lashae-Hex 2%) 1 applic DAILY@2000 TOPIC 11/03/18 20:00 12/03/18 19:59 11/04/18 20:44 Dextrose (Dextrose 50%) 25 ml Q30M PRN IV Hypoglycemia 11/02/18 19:00 12/01/18 19:59 11/05/18 05:37 Dextrose (Dextrose 50%) 50 ml Q30M PRN IV Hypoglycemia 11/02/18 19:00 12/01/18 19:59 11/04/18 06:09 Dextrose/Sodium Chloride 1,000 ml @ 50 mls/hr Q20H IV 11/04/18 13:59 12/04/18 13:58 11/05/18 09:30 Duloxetine HCl (Cymbalta) 60 mg QHS ORAL 11/02/18 21:00 12/01/18 20:59 11/04/18 20:45 Epoetin Vishal (Procrit (for ESRD on dialysis)) 7,500 units THU-WED-THU SUBQ 11/03/18 21:00 12/01/18 20:59 11/03/18 21:21 Famotidine (Pepcid) 20 mg DAILY ORAL 11/03/18 09:00 12/02/18 08:59 11/05/18 09:28 Folic Acid (Folate) 1 mg DAILY ORAL 11/03/18 09:00 12/02/18 08:59 11/05/18 09:28 Heparin Sodium (Porcine) (Heparin 5000 units/ml) 5,000 units EVERY 8 HOURS SUBQ 11/02/18 22:00 12/01/18 21:59 11/05/18 05:36 Insulin Aspart (NovoLOG) BEFORE MEALS AND HS SUBQ 11/02/18 21:00 12/01/18 20:59 Mirtazapine (Remeron) 15 mg BEDTIME ORAL 11/02/18 21:00 12/01/18 20:59 11/04/18 20:45 Morphine Sulfate (Morphine Sulfate) 1 mg Q4H PRN IVP Severe Pain (Pain Scale 7-10) 11/02/18 21:30 11/09/18 21:29 11/05/18 01:22 Oxycodone/ Acetaminophen (Percocet 10/325) 1 tab Q6H PRN ORAL Moderate Pain (Pain Scale 4-6) 11/02/18 19:00 11/08/18 18:59 Oxycodone/ Acetaminophen (Percocet 5-325) 1 tab Q4H PRN ORAL Moderate Breakthru Pain (5-7) 11/02/18 19:00 11/08/18 18:59 Sodium Hypochlorite (Dakin's Quarter Strength) 1 applic DAILY TOPIC 11/04/18 09:00 12/02/18 11:29 11/03/18 16:17 Vancomycin HCl (Vanco rx to dose) 1 ea DAILY PRN MISC Per rx protocol 11/03/18 09:00 12/01/18 19:59 Zinc Sulfate (Zinc Sulfate) 220 mg DAILY ORAL 11/03/18 09:00 12/02/18 08:59 11/05/18 09:28 Arash Shafer MD Nov 05, 2018 10:58"
[2018-11-05 12:00] VITALS: BP 128/76
--- NOTE | 2018-11-05 13:00 | General Surgery Progress Note ---
General Surgery-Progress Note Subjective Additional Comments no acute events. doing well. comfortable. wound improving Objective Last 24 Hour Vital Signs Date Time Temp Pulse Resp B/P (MAP) Pulse Ox O2 Delivery O2 Flow Rate FiO2 11/05/18 12:00 97.5 93 18 128/76 (93) 100 11/05/18 12:00 Nasal Cannula 2.0 11/05/18 08:00 98.1 84 18 105/66 (79) 100 11/05/18 08:00 Nasal Cannula 2.0 11/05/18 07:49 82 11/05/18 07:02 Nasal Cannula 2.0 28 11/05/18 07:02 100 Nasal Cannula 2.0 28 11/05/18 04:00 98.4 82 18 106/74 (85) 99 11/05/18 04:00 83 11/05/18 04:00 Nasal Cannula 2.0 11/05/18 00:00 98.1 88 18 120/68 (85) 96 11/05/18 00:00 Nasal Cannula 2.0 11/05/18 00:00 83 11/04/18 20:00 86 11/04/18 20:00 Nasal Cannula 2.0 11/04/18 20:00 97.9 90 18 130/55 (80) 99 11/04/18 16:10 88 11/04/18 16:00 Nasal Cannula 2.0 11/04/18 15:40 98.2 85 18 136/42 (73) 100 I&O Intake and Output 11/04/18 11/05/18 19:00 07:00 Intake Total 312 ml 660 ml Output Total 2000 ml Balance -1688 ml 660 ml Intake Oral 60 ml IV Total 312 ml 600 ml Output Hemodialysis UF 2000 ml # Voids 1 # Bowel Movements 2 Dressing: saturated Wound: clean, other Drains: other Cardiovascular: RSR Respiratory: clear Abdomen: soft, distended, present bowel sounds Extremities: edema, other Laboratory Tests Test 11/05/18 03:40 Sodium Level 139 MMOL/L (136-145) Potassium Level 4.4 MMOL/L (3.5-5.1) Chloride Level 106 MMOL/L (98-107) Carbon Dioxide Level 27 MMOL/L (21-32) Anion Gap 7 mmol/L (5-15) Blood Urea Nitrogen 19 mg/dL (7-18) H Creatinine 2.7 MG/DL (0.55-1.30) H Estimat Glomerular Filtration Rate 19.4 mL/min (>60) Glucose Level 59 MG/DL (74-106) L Calcium Level 7.9 MG/DL (8.5-10.1) L Phosphorus Level 3.0 MG/DL (2.5-4.9) Random Vancomycin Level 21.3 ug/mL Plan Problems: (1) Abscess of upper arm Assessment & Plan: right upper extremity Antecubital AC fossa abscess. etiology unknown. at first area of induration / cellulitis but since has opened and draining pus. leukocytosis resolved multiple other wounds but those are chronic right arm picc but more proximal to abscess and do not seem to be related US noted and small 1cm area of likely prior abscess which is draining spontaneously. drainage less today. cellulitis improving. -dressing changes TID and prn -will monitor clinically. -continue IV ABx thank you (2) Sacral decubitus ulcer, stage IV Assessment & Plan: Pt presents with multiple Full thickness and unstageable pressure injuries. Abscess that is oozing moderate amt purulent exudate L upper ext.Pt's hygiene grossly neglected. Full thickness pressure injury L hip(L)11cm x (W)26cm with scattered mixed soft necrosis and slough wound bed and along borders .Periwound dark and indurated. Small amt brownish, malodorous exudate noted.Pressure injury to L ischium (L)2cm x (W)2.4cm with 100% soft necrosis , marginal erythema along borders.Periwound with dark skin pigmentation without erythema or induration.Full thickness pressure injury R hip (L)16.5cm x (W)11cm x (D)2cm. Mixed soft necrosis and slough to wound bed with Thick layer of soft necrosis along borders .Periwound dark without induration.Inferiorly to R hip wound is second full thickness pressure injury (L)2cm x (W)5.5cm with 100% yellow slough. Sacrum black with fluctuance(L)9.7cm x (W)13.3cm. Scattered small openings that are dry noted to wound bed. Periwound is intact. Dark skin tone without erythema or induration noted to R ischium.Historical scars noted to medial aspect of R thigh. Full thickness ulcer with 100% soft necrosis noted to posterior L tibia(L)6cm x (W)2.5cm .periwound dry and intact without erythema.Dry scaling skin both feet and web spaces of metatarsals.Dry eschar noted to 1st ,2nd .4th and 5th metatarsals of L foot .Unstable eschar noted to dorsum L 3rd metatarsal. Stable dry eschar noted to L hallux(L)1.7cm x (W) 1.6cm. Stable dry eschar noted to distal /lateral L foot (L)0.5cm x (W)0.7cm. Edges and periwound are intact. Full thickness pressure injury L heel with 90% necrosis with bordering erythema and soft slough (L)6cm x (W)6.6cm. Periwound dry and boggy without erythema. Full thickness pressure injury R heel with approx 40% necrosis,60% ivory with slough ,(+) maceration along borders .minimal brownish exudate.No odor noted. Periwound boggy without erythema. Dark skin pigmentation noted to 1-5th metatarsals R foot. Stable eschar noted to R hallux (L)1.5cm x (W)1cm.periwound is dry and intact. Tx.Plan: Apply Dakin's 0.025% soaked gauze to pressure injuries R Hip,L Hip,L Ischium and Sacrum. Cover with ABD pads and secure with Tegaderm drsgs Daily and prn. Apply Betadine to wounds R and L foot wounds .Cover with ABD and wrap with Kerlix Daily and prn. Apply Betadine to wound posterior R tibia.Cover with Abd pad and wrap with Kerlix Daily and prn. Reposition at least every 2 hours or as tolerated. Air Fluidized mattress. Off-load heels with pillow. Alfred Hodges Nov 05, 2018 13:00
[2018-11-05] MEDS: Piperacillin/Tazobactam 2.25 GM in D5W 55 ML IVPB SCH ×2 (14:07→22:32)
[2018-11-05] MEDS: Dakin's 0.125% Soln (Quarter Strength) 16oz TOPIC SCH (15:14)
[2018-11-05 16:00] VITALS: BP 134/77
[2018-11-05 20:00] VITALS: BP 125/75
[2018-11-05] MEDS: Atorvastatin 20mg tab ORAL SCH (21:00)
[2018-11-05] MEDS: DULoxetine 30mg cap ORAL SCH (21:00)
[2018-11-05] MEDS: Dyna-Hex 2% Top Sol 2oz TOPIC SCH (22:31)
[2018-11-05] MEDS: Epogen (for ESRD on dialysis) SUBQ SCH (22:34)
[2018-11-06] VITALS: BP 107/60
[2018-11-06] MEDS: Morphine Sulfate 2mg/ml Inj IVP PRN ×3 (03:15→20:21)
[2018-11-06 04:00] VITALS: BP 109/70
[2018-11-06] MEDS: D5NS 1,000 ML IV SCH (05:08)
[2018-11-06] MEDS: Piperacillin/Tazobactam 2.25 GM in D5W 55 ML IVPB SCH ×3 (05:08→22:43)
[2018-11-06] MEDS: Heparin 5000 units/ml inj SUBQ SCH ×3 (05:42→22:56)
[2018-11-06] MEDS: Calcium Acetate 667mg Tab ORAL SCH ×3 (06:28→18:04)
[2018-11-06] MEDS: NovoLOG Insulin Flexpen SUBQ SCH ×4 (06:28→21:00)
--- NOTE | 2018-11-06 07:51 | Nephrology Progress Note ---
Assessment/Plan Assessment/Plan A/P 1) ESRD- HD TTS - orders placed for today. Attempt to use AVF 2) Sepsis/Cellulitis- Abx 3) Anemia of CKD- on EPO 4) SHPT- phos binder 5) Sacral Wounds- per wound care Subjective Date patient seen: Nov 06, 2018 Time patient seen: 07:50 ROS Limited/Unobtainable: No Constitutional: Reports: weakness Allergies: Coded Allergies: No Known Allergies (Unverified , 04/11/18) Subjective Patient fatigued. HD today Objective Last 24 Hour Vital Signs Date Time Temp Pulse Resp B/P (MAP) Pulse Ox O2 Delivery O2 Flow Rate FiO2 11/06/18 04:00 88 11/06/18 04:00 Nasal Cannula 2.0 11/06/18 04:00 98.5 82 24 109/70 (83) 99 11/06/18 00:00 Nasal Cannula 2.0 11/06/18 00:00 84 11/06/18 00:00 98.0 74 24 107/60 (76) 100 11/05/18 20:19 99 Nasal Cannula 2.0 28 11/05/18 20:19 Nasal Cannula 2.0 28 11/05/18 20:00 88 11/05/18 20:00 Nasal Cannula 2.0 11/05/18 20:00 98.2 84 24 125/75 (92) 100 11/05/18 18:00 83 11/05/18 16:00 Nasal Cannula 2.0 11/05/18 16:00 97.9 100 18 134/77 (96) 99 11/05/18 12:00 97.5 93 18 128/76 (93) 100 11/05/18 12:00 Nasal Cannula 2.0 11/05/18 11:52 81 11/05/18 08:00 98.1 84 18 105/66 (79) 100 11/05/18 08:00 Nasal Cannula 2.0 Intake and Output 11/05/18 11/06/18 18:59 06:59 Intake Total 660 ml 760 ml Balance 660 ml 760 ml Intake Oral 60 ml 50 ml IV Total 600 ml 710 ml Height (Feet): 5 Height (Inches): 6.00 Weight (Pounds): 165 General Appearance: no apparent distress EENT: normal ENT inspection Neck: normal alignment, supple Cardiovascular: normal rate, regular rhythm Respiratory/Chest: lungs clear Abdomen: non tender, soft Edema: no edema noted Arm (L), no edema noted Arm (R), no edema noted Leg (L), no edema noted Leg (R), no edema noted Pedal (L), no edema noted Pedal (R), no edema noted Generalized Rajat Turner MD Nov 06, 2018 07:51
[2018-11-06 08:00] VITALS: BP 104/74
[2018-11-06] MEDS: Ascorbic Acid 500mg tab ORAL SCH (09:00)
[2018-11-06] MEDS: Zinc Sulfate 220mg cap ORAL SCH (09:00)
[2018-11-06] MEDS: Dakin's 0.125% Soln (Quarter Strength) 16oz TOPIC SCH (09:24)
--- NOTE | 2018-11-06 10:25 | General Surgery Progress Note ---
General Surgery-Progress Note Subjective Symptoms: improved Additional Comments receiving HD. still with some drainage at right AC wound but improving. cellulitis improved. Objective Last 24 Hour Vital Signs Date Time Temp Pulse Resp B/P (MAP) Pulse Ox O2 Delivery O2 Flow Rate FiO2 11/06/18 08:00 82 11/06/18 08:00 97.9 83 16 104/74 (84) 100 11/06/18 04:00 88 11/06/18 04:00 Nasal Cannula 2.0 11/06/18 04:00 98.5 82 24 109/70 (83) 99 11/06/18 00:00 Nasal Cannula 2.0 11/06/18 00:00 84 11/06/18 00:00 98.0 74 24 107/60 (76) 100 11/05/18 20:19 99 Nasal Cannula 2.0 28 11/05/18 20:19 Nasal Cannula 2.0 28 11/05/18 20:00 88 11/05/18 20:00 Nasal Cannula 2.0 11/05/18 20:00 98.2 84 24 125/75 (92) 100 11/05/18 18:00 83 11/05/18 16:00 Nasal Cannula 2.0 11/05/18 16:00 97.9 100 18 134/77 (96) 99 11/05/18 12:00 97.5 93 18 128/76 (93) 100 11/05/18 12:00 Nasal Cannula 2.0 11/05/18 11:52 81 I&O Intake and Output 11/05/18 11/06/18 18:59 06:59 Intake Total 660 ml 760 ml Balance 660 ml 760 ml Intake Oral 60 ml 50 ml IV Total 600 ml 710 ml Dressing: saturated Wound: clean Drains: other Cardiovascular: RSR Respiratory: clear Abdomen: soft, flat, non-tender, present bowel sounds Extremities: other Plan Problems: (1) Abscess of upper arm Assessment & Plan: right upper extremity Antecubital AC fossa abscess. etiology unknown. at first area of induration / cellulitis but since has opened and draining pus. leukocytosis resolved multiple other wounds but those are chronic right arm picc but more proximal to abscess and do not seem to be related US noted and small 1cm area of likely prior abscess which is draining spontaneously. drainage less today. cellulitis improving. -dressing changes TID and prn -will monitor clinically. -continue IV ABx thank you (2) Sacral decubitus ulcer, stage IV Assessment & Plan: Pt presents with multiple Full thickness and unstageable pressure injuries. Abscess that is oozing moderate amt purulent exudate L upper ext.Pt's hygiene grossly neglected. Full thickness pressure injury L hip(L)11cm x (W)26cm with scattered mixed soft necrosis and slough wound bed and along borders .Periwound dark and indurated. Small amt brownish, malodorous exudate noted.Pressure injury to L ischium (L)2cm x (W)2.4cm with 100% soft necrosis , marginal erythema along borders.Periwound with dark skin pigmentation without erythema or induration.Full thickness pressure injury R hip (L)16.5cm x (W)11cm x (D)2cm. Mixed soft necrosis and slough to wound bed with Thick layer of soft necrosis along borders .Periwound dark without induration.Inferiorly to R hip wound is second full thickness pressure injury (L)2cm x (W)5.5cm with 100% yellow slough. Sacrum black with fluctuance(L)9.7cm x (W)13.3cm. Scattered small openings that are dry noted to wound bed. Periwound is intact. Dark skin tone without erythema or induration noted to R ischium.Historical scars noted to medial aspect of R thigh. Full thickness ulcer with 100% soft necrosis noted to posterior L tibia(L)6cm x (W)2.5cm .periwound dry and intact without erythema.Dry scaling skin both feet and web spaces of metatarsals.Dry eschar noted to 1st ,2nd .4th and 5th metatarsals of L foot .Unstable eschar noted to dorsum L 3rd metatarsal. Stable dry eschar noted to L hallux(L)1.7cm x (W) 1.6cm. Stable dry eschar noted to distal /lateral L foot (L)0.5cm x (W)0.7cm. Edges and periwound are intact. Full thickness pressure injury L heel with 90% necrosis with bordering erythema and soft slough (L)6cm x (W)6.6cm. Periwound dry and boggy without erythema. Full thickness pressure injury R heel with approx 40% necrosis,60% ivory with slough ,(+) maceration along borders .minimal brownish exudate.No odor noted. Periwound boggy without erythema. Dark skin pigmentation noted to 1-5th metatarsals R foot. Stable eschar noted to R hallux (L)1.5cm x (W)1cm.periwound is dry and intact. Tx.Plan: Apply Dakin's 0.025% soaked gauze to pressure injuries R Hip,L Hip,L Ischium and Sacrum. Cover with ABD pads and secure with Tegaderm drsgs Daily and prn. Apply Betadine to wounds R and L foot wounds .Cover with ABD and wrap with Kerlix Daily and prn. Apply Betadine to wound posterior R tibia.Cover with Abd pad and wrap with Kerlix Daily and prn. Reposition at least every 2 hours or as tolerated. Air Fluidized mattress. Off-load heels with pillow. Alfred Hodges Nov 06, 2018 10:25
[2018-11-06 12:00] VITALS: BP 105/28
--- NOTE | 2018-11-06 13:04 | General Progress Note ---
Assessment/Plan Problem List: (1) Abscess ICD Codes: L02.91 - Cutaneous abscess, unspecified SNOMED: 331745464 (2) Sepsis ICD Codes: A41.9 - Sepsis, unspecified organism SNOMED: 30506272 (3) Sacral pressure ulcer ICD Codes: L89.159 - Pressure ulcer of sacral region, unspecified stage SNOMED: 952740550 (4) Sacral decubitus ulcer, stage IV ICD Codes: L89.154 - Pressure ulcer of sacral region, stage 4 SNOMED: 780804361, 767948277 (5) Acute osteomyelitis of right calcaneus ICD Codes: M86.171 - Other acute osteomyelitis, right ankle and foot SNOMED: 879916920 Status: stable Assessment/Plan iv abx follow up cultures wound care HD per renal dvt/stress ulcer prophylaxis encourage po d/w with . he will bring in food and encourage the pt to eat dc planning Subjective ROS Limited/Unobtainable: No Constitutional: Reports: malaise, weakness HEENT: Reports: no symptoms Cardiovascular: Reports: no symptoms Respiratory: Reports: no symptoms Gastrointestinal/Abdominal: Reports: poor appetite, poor fluid intake Genitourinary: Reports: no symptoms Neurologic/Psychiatric: Reports: pre-existing deficit Endocrine: Reports: no symptoms Hematologic/Lymphatic: Reports: anemia Allergies: Coded Allergies: No Known Allergies (Unverified , 04/11/18) All Systems: reviewed and negative except above Subjective no events. stable. refusing po meds and food all noted. cellulitis improving. Objective Last 24 Hour Vital Signs Date Time Temp Pulse Resp B/P (MAP) Pulse Ox O2 Delivery O2 Flow Rate FiO2 11/06/18 12:00 Nasal Cannula 2.0 11/06/18 12:00 98.2 80 16 105/28 (53) 100 11/06/18 08:00 Nasal Cannula 2.0 11/06/18 08:00 82 11/06/18 08:00 97.9 83 16 104/74 (84) 100 11/06/18 04:00 88 11/06/18 04:00 Nasal Cannula 2.0 11/06/18 04:00 98.5 82 24 109/70 (83) 99 11/06/18 00:00 Nasal Cannula 2.0 11/06/18 00:00 84 11/06/18 00:00 98.0 74 24 107/60 (76) 100 11/05/18 20:19 99 Nasal Cannula 2.0 28 11/05/18 20:19 Nasal Cannula 2.0 28 11/05/18 20:00 88 11/05/18 20:00 Nasal Cannula 2.0 11/05/18 20:00 98.2 84 24 125/75 (92) 100 11/05/18 18:00 83 11/05/18 16:00 Nasal Cannula 2.0 11/05/18 16:00 97.9 100 18 134/77 (96) 99 Intake and Output 11/05/18 11/06/18 18:59 06:59 Intake Total 660 ml 760 ml Balance 660 ml 760 ml Intake Oral 60 ml 50 ml IV Total 600 ml 710 ml Height (Feet): 5 Height (Inches): 6.00 Weight (Pounds): 165 Objective General Appearance: cachetic Neck: supple Cardiovascular: regular rhythm Respiratory/Chest: lungs clear Abdomen: normal bowel sounds, non tender, soft, no organomegaly Edema: no edema noted Arm (L), no edema noted Arm (R), no edema noted Leg (L), no edema noted Leg (R), no edema noted Pedal (L), no edema noted Pedal (R), no edema noted Generalized Skin: other - massive christiano hip wound and christiano foot Holden Quiroz MD Nov 06, 2018 13:04
[2018-11-06] MEDS ORDERED: Tubing IV Secondary IV ONE (15:42)
[2018-11-06] MEDS ORDERED: D5NS 1000ml IV ONE (15:42)
[2018-11-06] MEDS ORDERED: NS 275ml ONE ×2 (15:42)
[2018-11-06 16:00] VITALS: BP 104/26
[2018-11-06 20:00] VITALS: BP 131/36
[2018-11-06] MEDS: Dyna-Hex 2% Top Sol 2oz TOPIC SCH (20:20)
[2018-11-06] MEDS: DULoxetine 30mg cap ORAL SCH (21:00)
[2018-11-06] MEDS: Atorvastatin 20mg tab ORAL SCH (21:00)
[2018-11-06] MEDS ORDERED: DULoxetine 30mg cap ORAL ONE (23:00)
[2018-11-06] MEDS ORDERED: Atorvastatin 20mg tab ORAL ONE (23:00)
[2018-11-07] VITALS: BP 131/37
[2018-11-07] MEDS: Morphine Sulfate 2mg/ml Inj IVP PRN ×3 (01:35→20:35)
[2018-11-07] MEDS: D5NS 1,000 ML IV SCH ×2 (02:38→21:09)
[2018-11-07] MEDS: oxyCODONE HCL/Acetaminophen 5/325mg ORAL PRN ×2 (03:54→03:58)
[2018-11-07 04:00] VITALS: BP 144/40
[2018-11-07] MEDS: Piperacillin/Tazobactam 2.25 GM in D5W 55 ML IVPB SCH ×3 (05:46→20:32)
[2018-11-07] MEDS: Heparin 5000 units/ml inj SUBQ SCH ×3 (05:56→21:07)
[2018-11-07] MEDS: NovoLOG Insulin Flexpen SUBQ SCH ×4 (06:30→20:43)
[2018-11-07] MEDS: Calcium Acetate 667mg Tab ORAL SCH ×3 (06:30→16:30)
[2018-11-07 08:00] VITALS: BP 134/38
--- NOTE | 2018-11-07 08:10 | Nephrology Progress Note ---
Assessment/Plan Assessment/Plan A/P 1) ESRD- HD TTS - AM labs pending 2) Sepsis/Cellulitis- Abx per ID 3) Anemia of CKD- on EPO 3 x week 4) SHPT- phos binder. Check phos in am 5) Sacral Wounds- per wound care Subjective Date patient seen: Nov 07, 2018 Time patient seen: 08:06 ROS Limited/Unobtainable: Yes Allergies: Coded Allergies: No Known Allergies (Unverified , 04/11/18) Subjective Patient in no overt distress Objective Last 24 Hour Vital Signs Date Time Temp Pulse Resp B/P (MAP) Pulse Ox O2 Delivery O2 Flow Rate FiO2 11/07/18 04:00 91 11/07/18 04:00 Nasal Cannula 2.0 11/07/18 04:00 97.7 72 16 144/40 (74) 100 11/07/18 00:00 84 11/07/18 00:00 97.8 85 16 131/37 (68) 100 11/07/18 00:00 Nasal Cannula 2.0 11/06/18 20:00 86 11/06/18 20:00 Nasal Cannula 2.0 11/06/18 20:00 97.5 89 18 131/36 (67) 98 11/06/18 16:00 97.5 91 20 104/26 (52) 100 11/06/18 16:00 Nasal Cannula 2.0 11/06/18 16:00 90 11/06/18 12:00 Nasal Cannula 2.0 11/06/18 12:00 98.2 80 16 105/28 (53) 100 11/06/18 11:54 84 Intake and Output 11/06/18 11/07/18 19:00 07:00 Intake Total 710 ml 1071 ml Output Total 2000 ml Balance -1290 ml 1071 ml Intake Oral 60 ml 50 ml IV Total 650 ml 1021 ml Output Hemodialysis UF 2000 ml # Voids 1 Height (Feet): 5 Height (Inches): 6.00 Weight (Pounds): 160 General Appearance: no apparent distress, alert EENT: normal ENT inspection Neck: normal alignment, supple Cardiovascular: normal rate, regular rhythm Respiratory/Chest: rhonchi - bilaterally Abdomen: non tender, soft Edema: no edema noted Arm (L), no edema noted Arm (R), no edema noted Leg (L), no edema noted Leg (R), no edema noted Pedal (L), no edema noted Pedal (R), no edema noted Generalized Rajat Turner MD Nov 07, 2018 08:10
[2018-11-07] MEDS: Ascorbic Acid 500mg tab ORAL SCH (09:00)
[2018-11-07] MEDS: Zinc Sulfate 220mg cap ORAL SCH (09:00)
[2018-11-07] MEDS: Dakin's 0.125% Soln (Quarter Strength) 16oz TOPIC SCH (09:31)
--- NOTE | 2018-11-07 09:53 | Infectious Diseases Prog Note ---
"Assessment/Plan Assessment/Plan A: 1. right arm abscess with coag neg staph | providencia 2. toe gangrene 3. bilateral heel osteomyelitis 4. renal failure on dialysis 5. diabetes mellitus 6. coag neg staph sepsis P 1. continue iv vancomycin & Zosyn 2. will follow up cultures Subjective ROS Limited/Unobtainable: Yes Constitutional: Reports: no symptoms Allergies: Coded Allergies: No Known Allergies (Unverified , 04/11/18) Objective Vital Signs Last 24 Hour Vital Signs Date Time Temp Pulse Resp B/P (MAP) Pulse Ox O2 Delivery O2 Flow Rate FiO2 11/07/18 04:00 91 11/07/18 04:00 Nasal Cannula 2.0 11/07/18 04:00 97.7 72 16 144/40 (74) 100 11/07/18 00:00 84 11/07/18 00:00 97.8 85 16 131/37 (68) 100 11/07/18 00:00 Nasal Cannula 2.0 11/06/18 20:00 86 11/06/18 20:00 Nasal Cannula 2.0 11/06/18 20:00 97.5 89 18 131/36 (67) 98 11/06/18 16:00 97.5 91 20 104/26 (52) 100 11/06/18 16:00 Nasal Cannula 2.0 11/06/18 16:00 90 11/06/18 12:00 Nasal Cannula 2.0 11/06/18 12:00 98.2 80 16 105/28 (53) 100 11/06/18 11:54 84 Height (Feet): 5 Height (Inches): 6.00 Weight (Pounds): 160 General Appearance: no acute distress HEENT: mucous membranes moist Respiratory/Chest: lungs clear Cardiovascular: normal rate, other - R arm PICC line, R permacath Abdomen: soft, non tender Extremities: no edema, other - R arm abcess improving Skin: ulcers Laboratory Tests Test 11/07/18 09:25 Random Vancomycin Level Pending Current Medications Medications (Trade) Dose Ordered Sig/Alexandru Route PRN Reason Start Time Stop Time Status Last Admin Dose Admin Acetaminophen (Tylenol) 325 mg Q6H PRN ORAL Mild Pain/Temp > 100.5 11/02/18 19:00 12/01/18 18:59 Ascorbic Acid (Vitamin C) 500 mg DAILY ORAL 12/12/18 09:00 12/02/18 08:59 11/05/18 09:28 Atorvastatin Calcium (Lipitor) 40 mg BEDTIME ORAL 11/02/18 21:00 12/01/18 20:59 11/04/18 20:45 Calcium Acetate (Phoslo) 1,334 mg TIAC ORAL 11/03/18 06:30 12/02/18 06:29 11/06/18 18:04 Chlorhexidine Gluconate (Lashae-Hex 2%) 1 applic DAILY@2000 TOPIC 11/03/18 20:00 12/03/18 19:59 11/06/18 20:20 Dextrose (Dextrose 50%) 25 ml Q30M PRN IV Hypoglycemia 11/02/18 19:00 12/01/18 19:59 11/05/18 22:34 Dextrose (Dextrose 50%) 50 ml Q30M PRN IV Hypoglycemia 11/02/18 19:00 12/01/18 19:59 11/04/18 06:09 Dextrose/Sodium Chloride 1,000 ml @ 50 mls/hr Q20H IV 11/04/18 13:59 12/04/18 13:58 11/07/18 02:38 Duloxetine HCl (Cymbalta) 60 mg QHS ORAL 11/02/18 21:00 12/01/18 20:59 11/04/18 20:45 Epoetin Vishal (Procrit (for ESRD on dialysis)) 7,500 units MON-WED-FRI SUBQ 11/03/18 21:00 12/01/18 20:59 11/05/18 22:34 Famotidine (Pepcid) 20 mg DAILY ORAL 11/03/18 09:00 12/02/18 08:59 11/05/18 09:28 Folic Acid (Folate) 1 mg DAILY ORAL 11/03/18 09:00 12/02/18 08:59 11/05/18 09:28 Heparin Sodium (Porcine) (Heparin 5000 units/ml) 5,000 units EVERY 8 HOURS SUBQ 11/02/18 22:00 12/01/18 21:59 11/07/18 05:56 Insulin Aspart (NovoLOG) BEFORE MEALS AND HS SUBQ 11/02/18 21:00 12/01/18 20:59 Mirtazapine (Remeron) 15 mg BEDTIME ORAL 11/02/18 21:00 12/01/18 20:59 11/04/18 20:45 Morphine Sulfate (Morphine Sulfate) 1 mg Q4H PRN IVP Severe Pain (Pain Scale 7-10) 11/02/18 21:30 11/09/18 21:29 11/07/18 05:49 Oxycodone/ Acetaminophen (Percocet 10/325) 1 tab Q6H PRN ORAL Moderate Pain (Pain Scale 4-6) 11/02/18 19:00 11/08/18 18:59 Oxycodone/ Acetaminophen (Percocet 5-325) 1 tab Q4H PRN ORAL Moderate Breakthru Pain (5-7) 11/02/18 19:00 11/08/18 18:59 Piperacillin Sod/ Tazobactam Sod 2.25 gm/Dextrose 55 ml @ 110 mls/hr Q8H IVPB 11/05/18 13:00 11/12/18 12:59 11/07/18 05:46 Sodium Hypochlorite (Dakin's Quarter Strength) 1 applic DAILY TOPIC 11/04/18 09:00 12/02/18 11:29 11/07/18 09:31 Vancomycin HCl (Vanco rx to dose) 1 ea DAILY PRN MISC Per rx protocol 11/03/18 09:00 12/01/18 19:59 Zinc Sulfate (Zinc Sulfate) 220 mg DAILY ORAL 11/03/18 09:00 12/02/18 08:59 11/05/18 09:28 Daniel Aguilar MD Nov 07, 2018 09:53"
--- NOTE | 2018-11-07 10:15 | General Progress Note ---
Assessment/Plan Problem List: (1) Abscess ICD Codes: L02.91 - Cutaneous abscess, unspecified SNOMED: 949109638 (2) Sepsis ICD Codes: A41.9 - Sepsis, unspecified organism SNOMED: 93406306 (3) Sacral pressure ulcer ICD Codes: L89.159 - Pressure ulcer of sacral region, unspecified stage SNOMED: 043327968 (4) Sacral decubitus ulcer, stage IV ICD Codes: L89.154 - Pressure ulcer of sacral region, stage 4 SNOMED: 219318658, 428723604 (5) Acute osteomyelitis of right calcaneus ICD Codes: M86.171 - Other acute osteomyelitis, right ankle and foot SNOMED: 150163233 Status: stable Assessment/Plan iv abx follow up cultures wound care HD per renal dvt/stress ulcer prophylaxis encourage po dc planning on iv abx if ok with all Subjective ROS Limited/Unobtainable: No Constitutional: Reports: malaise, weakness HEENT: Reports: no symptoms Cardiovascular: Reports: no symptoms Respiratory: Reports: no symptoms Gastrointestinal/Abdominal: Reports: poor fluid intake Genitourinary: Reports: no symptoms Neurologic/Psychiatric: Reports: pre-existing deficit Endocrine: Reports: no symptoms Hematologic/Lymphatic: Reports: anemia Allergies: Coded Allergies: No Known Allergies (Unverified , 04/11/18) All Systems: reviewed and negative except above Subjective no events. stable. poor po intake refusing ngt/gt all noted. cellulitis improving. Objective Last 24 Hour Vital Signs Date Time Temp Pulse Resp B/P (MAP) Pulse Ox O2 Delivery O2 Flow Rate FiO2 11/07/18 04:00 91 11/07/18 04:00 Nasal Cannula 2.0 11/07/18 04:00 97.7 72 16 144/40 (74) 100 11/07/18 00:00 84 11/07/18 00:00 97.8 85 16 131/37 (68) 100 11/07/18 00:00 Nasal Cannula 2.0 11/06/18 20:00 86 11/06/18 20:00 Nasal Cannula 2.0 11/06/18 20:00 97.5 89 18 131/36 (67) 98 11/06/18 16:00 97.5 91 20 104/26 (52) 100 11/06/18 16:00 Nasal Cannula 2.0 11/06/18 16:00 90 12/15/18 12:00 Nasal Cannula 2.0 11/06/18 12:00 98.2 80 16 105/28 (53) 100 11/06/18 11:54 84 Intake and Output 11/06/18 11/07/18 18:59 06:59 Intake Total 710 ml 1121 ml Output Total 2000 ml Balance -1290 ml 1121 ml Intake Oral 60 ml 50 ml IV Total 650 ml 1071 ml Output Hemodialysis UF 2000 ml # Voids 1 Laboratory Tests 11/07/18 09:25: Random Vancomycin Level 16.2 Height (Feet): 5 Height (Inches): 6.00 Weight (Pounds): 160 Objective General Appearance: cachetic Neck: supple Cardiovascular: regular rhythm Respiratory/Chest: lungs clear Abdomen: normal bowel sounds, non tender, soft, no organomegaly Edema: no edema noted Arm (L), no edema noted Arm (R), no edema noted Leg (L), no edema noted Leg (R), no edema noted Pedal (L), no edema noted Pedal (R), no edema noted Generalized Skin: other - massive christiano hip wound and christiano foot Holden Quiroz MD Nov 07, 2018 10:15
[2018-11-07 12:00] VITALS: BP 117/35
[2018-11-07] MEDS ORDERED: Vancomycin 1gm/D5W 275ml IVPB SCH ×2 (12:00)
[2018-11-07] MEDS ORDERED: Tubing IV Secondary IV ONE (15:51)
[2018-11-07] MEDS ORDERED: NS 275ml ONE ×2 (15:51→21:40)
[2018-11-07] MEDS ORDERED: D5NS 1000ml IV ONE (15:51)
[2018-11-07 16:00] VITALS: BP 112/37
--- NOTE | 2018-11-07 16:36 | General Surgery Progress Note ---
General Surgery-Progress Note Subjective Symptoms: improved, pain absent, passing flatus Objective Last 24 Hour Vital Signs Date Time Temp Pulse Resp B/P (MAP) Pulse Ox O2 Delivery O2 Flow Rate FiO2 11/07/18 12:00 97.9 83 18 117/35 (62) 100 11/07/18 12:00 84 11/07/18 12:00 Nasal Cannula 2.0 11/07/18 08:00 Nasal Cannula 2.0 11/07/18 08:00 87 11/07/18 08:00 98.1 87 20 134/38 (70) 100 11/07/18 04:00 91 11/07/18 04:00 Nasal Cannula 2.0 11/07/18 04:00 97.7 72 16 144/40 (74) 100 11/07/18 00:00 84 11/07/18 00:00 97.8 85 16 131/37 (68) 100 11/07/18 00:00 Nasal Cannula 2.0 11/06/18 20:00 86 11/06/18 20:00 Nasal Cannula 2.0 11/06/18 20:00 97.5 89 18 131/36 (67) 98 I&O Intake and Output 11/06/18 11/07/18 18:59 06:59 Intake Total 710 ml 1121 ml Output Total 2000 ml Balance -1290 ml 1121 ml Intake Oral 60 ml 50 ml IV Total 650 ml 1071 ml Output Hemodialysis UF 2000 ml # Voids 1 Dressing: saturated Wound: clean, other Drains: other Cardiovascular: RSR Respiratory: clear Abdomen: soft, flat, non-tender, present bowel sounds Extremities: other Laboratory Tests Test 11/07/18 09:25 Random Vancomycin Level 16.2 ug/mL Plan Problems: (1) Abscess of upper arm Assessment & Plan: right upper extremity Antecubital AC fossa abscess. etiology unknown. at first area of induration / cellulitis but since has opened and draining pus. leukocytosis resolved multiple other wounds but those are chronic right arm picc but more proximal to abscess and do not seem to be related US noted and small 1cm area of likely prior abscess which is draining spontaneously. drainage less today. cellulitis improving. -dressing changes TID and prn -will monitor clinically. -continue IV ABx thank you (2) Sacral decubitus ulcer, stage IV Assessment & Plan: Pt presents with multiple Full thickness and unstageable pressure injuries. Abscess that is oozing moderate amt purulent exudate L upper ext.Pt's hygiene grossly neglected. Full thickness pressure injury L hip(L)11cm x (W)26cm with scattered mixed soft necrosis and slough wound bed and along borders .Periwound dark and indurated. Small amt brownish, malodorous exudate noted.Pressure injury to L ischium (L)2cm x (W)2.4cm with 100% soft necrosis , marginal erythema along borders.Periwound with dark skin pigmentation without erythema or induration.Full thickness pressure injury R hip (L)16.5cm x (W)11cm x (D)2cm. Mixed soft necrosis and slough to wound bed with Thick layer of soft necrosis along borders .Periwound dark without induration.Inferiorly to R hip wound is second full thickness pressure injury (L)2cm x (W)5.5cm with 100% yellow slough. Sacrum black with fluctuance(L)9.7cm x (W)13.3cm. Scattered small openings that are dry noted to wound bed. Periwound is intact. Dark skin tone without erythema or induration noted to R ischium.Historical scars noted to medial aspect of R thigh. Full thickness ulcer with 100% soft necrosis noted to posterior L tibia(L)6cm x (W)2.5cm .periwound dry and intact without erythema.Dry scaling skin both feet and web spaces of metatarsals.Dry eschar noted to 1st ,2nd .4th and 5th metatarsals of L foot .Unstable eschar noted to dorsum L 3rd metatarsal. Stable dry eschar noted to L hallux(L)1.7cm x (W) 1.6cm. Stable dry eschar noted to distal /lateral L foot (L)0.5cm x (W)0.7cm. Edges and periwound are intact. Full thickness pressure injury L heel with 90% necrosis with bordering erythema and soft slough (L)6cm x (W)6.6cm. Periwound dry and boggy without erythema. Full thickness pressure injury R heel with approx 40% necrosis,60% ivory with slough ,(+) maceration along borders .minimal brownish exudate.No odor noted. Periwound boggy without erythema. Dark skin pigmentation noted to 1-5th metatarsals R foot. Stable eschar noted to R hallux (L)1.5cm x (W)1cm.periwound is dry and intact. Tx.Plan: Apply Dakin's 0.025% soaked gauze to pressure injuries R Hip,L Hip,L Ischium and Sacrum. Cover with ABD pads and secure with Tegaderm drsgs Daily and prn. Apply Betadine to wounds R and L foot wounds .Cover with ABD and wrap with Kerlix Daily and prn. Apply Betadine to wound posterior R tibia.Cover with Abd pad and wrap with Kerlix Daily and prn. Reposition at least every 2 hours or as tolerated. Air Fluidized mattress. Off-load heels with pillow. Alfred Hodges Nov 07, 2018 16:36
[2018-11-07 20:00] VITALS: BP 130/60
[2018-11-07] MEDS: DULoxetine 30mg cap ORAL SCH (20:33)
[2018-11-07] MEDS: Dyna-Hex 2% Top Sol 2oz TOPIC SCH (20:33)
[2018-11-07] MEDS: Atorvastatin 20mg tab ORAL SCH (20:33)
[2018-11-08] VITALS: BP 140/63
[2018-11-08 04:00] VITALS: BP 120/53
[2018-11-08 04:59] LABS: ANION GAP 13 mmol/L (5-15); BLOOD UREA NITROGEN 21 mg/dL (7-18); CARBON DIOXIDE 22 MMOL/L (21-32); CHLORIDE 106 MMOL/L (98-107); CREATININE 2.9 MG/DL (0.55-1.30); SODIUM 141 MMOL/L (136-145)
[2018-11-08] MEDS: Calcium Acetate 667mg Tab ORAL SCH ×3 (05:14→16:30)
[2018-11-08] MEDS: Heparin 5000 units/ml inj SUBQ SCH ×3 (05:15→21:57)
[2018-11-08] MEDS: Morphine Sulfate 2mg/ml Inj IVP PRN ×3 (05:16→20:54)
[2018-11-08] MEDS: Piperacillin/Tazobactam 2.25 GM in D5W 55 ML IVPB SCH (05:16)
[2018-11-08 06:11] LABS: POTASSIUM 6.2 MMOL/L (3.5-5.1)
[2018-11-08] MEDS: NovoLOG Insulin Flexpen SUBQ SCH ×4 (06:30→20:51)
[2018-11-08 08:00] VITALS: BP 131/75
--- NOTE | 2018-11-08 08:07 | Nephrology Progress Note ---
Assessment/Plan Assessment/Plan A/P 1) ESRD- HD TTS - plan for DC today 2) Sepsis/Cellulitis- Abx per ID 3) Anemia of CKD- on EPO 3 x week 4) Hyperk+ specimen hemolyzed - recollected. If elevated then HD today, if not then ok for DC 5) Sacral Wounds- per wound care Subjective Date patient seen: Nov 08, 2018 Time patient seen: 08:05 ROS Limited/Unobtainable: No Constitutional: Reports: weakness Allergies: Coded Allergies: No Known Allergies (Unverified , 04/11/18) Subjective Patient in no overt distress, fatigue Objective Last 24 Hour Vital Signs Date Time Temp Pulse Resp B/P (MAP) Pulse Ox O2 Delivery O2 Flow Rate FiO2 11/08/18 05:46 98.2 11/08/18 04:00 98.2 84 16 120/53 (75) 100 11/08/18 04:00 81 11/08/18 04:00 Nasal Cannula 2.0 11/08/18 00:00 Nasal Cannula 2.0 11/08/18 00:00 85 11/08/18 00:00 97.7 86 18 140/63 (88) 100 11/07/18 20:00 Nasal Cannula 2.0 11/07/18 20:00 Nasal Cannula 2.0 28 11/07/18 20:00 98 Nasal Cannula 2.0 28 11/07/18 20:00 97.7 84 16 130/60 (83) 100 11/07/18 20:00 89 11/07/18 16:00 97.9 84 18 112/37 (62) 100 11/07/18 16:00 85 11/07/18 16:00 Nasal Cannula 2.0 11/07/18 12:00 97.9 83 18 117/35 (62) 100 11/07/18 12:00 84 11/07/18 12:00 Nasal Cannula 2.0 Intake and Output 11/07/18 11/08/18 19:00 07:00 Intake Total 625 ml 772.5 ml Balance 625 ml 772.5 ml Intake Oral 25 ml 120 ml IV Total 600 ml 652.5 ml Laboratory Tests 11/07/18 09:25: Random Vancomycin Level 16.2 11/08/18 03:56: Sodium Level 141, Potassium Level 6.2*H, Chloride Level 106, Carbon Dioxide Level 22, Anion Gap 13, Blood Urea Nitrogen 21H, Creatinine 2.9H, Estimat Glomerular Filtration Rate 17.9, Glucose Level 58L, Calcium Level 8.0L, Phosphorus Level 3.6 Height (Feet): 5 Height (Inches): 6.00 Weight (Pounds): 162 General Appearance: no apparent distress, alert EENT: normal ENT inspection Neck: normal alignment, supple Cardiovascular: normal rate, regular rhythm Respiratory/Chest: lungs clear Abdomen: non tender, soft Edema: 1+ Arm (L), 1+ Arm (R), 1+ Leg (L), 1+ Leg (R), 1+ Pedal (L), 1+ Pedal ( R), 1+ Generalized Rajat Turner MD Nov 08, 2018 08:07
[2018-11-08] MEDS ORDERED: Vanco pharmacy to dose MISC (08:23)
[2018-11-08] MEDS: Zinc Sulfate 220mg cap ORAL SCH (10:05)
[2018-11-08] MEDS: Dakin's 0.125% Soln (Quarter Strength) 16oz TOPIC SCH (10:05)
[2018-11-08] MEDS: Ascorbic Acid 500mg tab ORAL SCH (10:05)
--- NOTE | 2018-11-08 11:15 | Infectious Diseases Prog Note ---
"Assessment/Plan Assessment/Plan antibiotics : iv vancomycin, zosyn A 1. right arm abscess with coag neg staph | providencia s/p rx 2. toe gangrene 3. bilateral heel osteomyelitis 4. renal failure on dialysis 5. diabetes mellitus 6. coag neg staph sepsis P 1. continue iv vancomycin 34 more days after dialysis 2. d/c zosyn 3. will follow up cultures Subjective ROS Limited/Unobtainable: Yes Allergies: Coded Allergies: No Known Allergies (Unverified , 04/11/18) Objective Vital Signs Last 24 Hour Vital Signs Date Time Temp Pulse Resp B/P (MAP) Pulse Ox O2 Delivery O2 Flow Rate FiO2 11/08/18 08:00 80 11/08/18 08:00 96.8 81 12 131/75 (93) 97 11/08/18 05:46 98.2 11/08/18 04:00 98.2 84 16 120/53 (75) 100 11/08/18 04:00 81 11/08/18 04:00 Nasal Cannula 2.0 11/08/18 00:00 Nasal Cannula 2.0 11/08/18 00:00 85 11/08/18 00:00 97.7 86 18 140/63 (88) 100 11/07/18 20:00 Nasal Cannula 2.0 11/07/18 20:00 Nasal Cannula 2.0 28 11/07/18 20:00 98 Nasal Cannula 2.0 28 11/07/18 20:00 97.7 84 16 130/60 (83) 100 11/07/18 20:00 89 11/07/18 16:00 97.9 84 18 112/37 (62) 100 11/07/18 16:00 85 11/07/18 16:00 Nasal Cannula 2.0 11/07/18 12:00 97.9 83 18 117/35 (62) 100 11/07/18 12:00 84 11/07/18 12:00 Nasal Cannula 2.0 Height (Feet): 5 Height (Inches): 6.00 Weight (Pounds): 162 Respiratory/Chest: lungs clear Cardiovascular: normal rate, regular rhythm, no gallop/murmur Abdomen: soft, non tender Extremities: no edema, other - right subclavian catheter, right arm PICC Laboratory Tests Test 11/08/18 03:56 11/08/18 08:30 Sodium Level 141 MMOL/L (136-145) Potassium Level 6.2 MMOL/L (3.5-5.1) *H 3.7 MMOL/L (3.5-5.1) Chloride Level 106 MMOL/L (98-107) Carbon Dioxide Level 22 MMOL/L (21-32) Anion Gap 13 mmol/L (5-15) Blood Urea Nitrogen 21 mg/dL (7-18) H Creatinine 2.9 MG/DL (0.55-1.30) H Estimat Glomerular Filtration Rate 17.9 mL/min (>60) Glucose Level 58 MG/DL (74-106) L Calcium Level 8.0 MG/DL (8.5-10.1) L Phosphorus Level 3.6 MG/DL (2.5-4.9) Current Medications Medications (Trade) Dose Ordered Sig/Alexandru Route PRN Reason Start Time Stop Time Status Last Admin Dose Admin Acetaminophen (Tylenol) 325 mg Q6H PRN ORAL Mild Pain/Temp > 100.5 11/02/18 19:00 12/01/18 18:59 Ascorbic Acid (Vitamin C) 500 mg DAILY ORAL 11/03/18 09:00 12/02/18 08:59 11/08/18 10:05 Atorvastatin Calcium (Lipitor) 40 mg BEDTIME ORAL 11/02/18 21:00 12/01/18 20:59 11/07/18 20:33 Calcium Acetate (Phoslo) 1,334 mg TIAC ORAL 11/03/18 06:30 12/02/18 06:29 11/08/18 05:14 Chlorhexidine Gluconate (Lashae-Hex 2%) 1 applic DAILY@2000 TOPIC 11/03/18 20:00 12/03/18 19:59 11/07/18 20:33 Dextrose (Dextrose 50%) 25 ml Q30M PRN IV Hypoglycemia 11/02/18 19:00 12/01/18 19:59 11/08/18 07:08 Dextrose (Dextrose 50%) 50 ml Q30M PRN IV Hypoglycemia 11/02/18 19:00 12/01/18 19:59 11/04/18 06:09 Dextrose/Sodium Chloride 1,000 ml @ 50 mls/hr Q20H IV 11/04/18 13:59 12/04/18 13:58 11/07/18 21:09 Duloxetine HCl (Cymbalta) 60 mg QHS ORAL 11/02/18 21:00 12/01/18 20:59 11/07/18 20:33 Epoetin Vishal (Procrit (for ESRD on dialysis)) 7,500 units MON-WED-THU SUBQ 11/03/18 21:00 12/01/18 20:59 11/05/18 22:34 Famotidine (Pepcid) 20 mg DAILY ORAL 11/03/18 09:00 12/02/18 08:59 11/08/18 10:05 Folic Acid (Folate) 1 mg DAILY ORAL 11/03/18 09:00 12/02/18 08:59 11/08/18 10:05 Heparin Sodium (Porcine) (Heparin 5000 units/ml) 5,000 units EVERY 8 HOURS SUBQ 11/02/18 22:00 12/01/18 21:59 11/08/18 05:15 Insulin Aspart (NovoLOG) BEFORE MEALS AND HS SUBQ 11/02/18 21:00 12/01/18 20:59 Mirtazapine (Remeron) 15 mg BEDTIME ORAL 11/02/18 21:00 12/01/18 20:59 11/07/18 20:33 Morphine Sulfate (Morphine Sulfate) 1 mg Q4H PRN IVP Severe Pain (Pain Scale 7-10) 11/02/18 21:30 11/09/18 21:29 11/08/18 05:16 Oxycodone/ Acetaminophen (Percocet 10/325) 1 tab Q6H PRN ORAL Moderate Pain (Pain Scale 4-6) 11/02/18 19:00 11/08/18 18:59 11/07/18 23:33 Oxycodone/ Acetaminophen (Percocet 5-325) 1 tab Q4H PRN ORAL Moderate Breakthru Pain (5-7) 11/02/18 19:00 11/08/18 18:59 Piperacillin Sod/ Tazobactam Sod 2.25 gm/Dextrose 55 ml @ 110 mls/hr Q8H IVPB 11/05/18 13:00 11/12/18 12:59 11/08/18 05:16 Sodium Hypochlorite (Dakin's Quarter Strength) 1 applic DAILY TOPIC 11/04/18 09:00 12/02/18 11:29 11/08/18 10:05 Vancomycin HCl (Vanco rx to dose) 1 ea DAILY PRN MISC Per rx protocol 11/03/18 09:00 12/01/18 19:59 Zinc Sulfate (Zinc Sulfate) 220 mg DAILY ORAL 11/03/18 09:00 12/02/18 08:59 11/08/18 10:05 Arash Shafer MD Nov 08, 2018 11:15"
[2018-11-08 12:00] VITALS: BP 140/58
--- NOTE | 2018-11-08 12:52 | General Surgery Progress Note ---
General Surgery-Progress Note Subjective Symptoms: improved Additional Comments drainage much less. improving Objective Last 24 Hour Vital Signs Date Time Temp Pulse Resp B/P (MAP) Pulse Ox O2 Delivery O2 Flow Rate FiO2 11/08/18 08:00 80 11/08/18 08:00 96.8 81 12 131/75 (93) 97 11/08/18 05:46 98.2 11/08/18 04:00 98.2 84 16 120/53 (75) 100 11/08/18 04:00 81 11/08/18 04:00 Nasal Cannula 2.0 11/08/18 00:00 Nasal Cannula 2.0 11/08/18 00:00 85 11/08/18 00:00 97.7 86 18 140/63 (88) 100 11/07/18 20:00 Nasal Cannula 2.0 11/07/18 20:00 Nasal Cannula 2.0 28 11/07/18 20:00 98 Nasal Cannula 2.0 28 11/07/18 20:00 97.7 84 16 130/60 (83) 100 11/07/18 20:00 89 11/07/18 16:00 97.9 84 18 112/37 (62) 100 11/07/18 16:00 85 11/07/18 16:00 Nasal Cannula 2.0 I&O Intake and Output 11/07/18 11/08/18 19:00 07:00 Intake Total 625 ml 772.5 ml Balance 625 ml 772.5 ml Intake Oral 25 ml 120 ml IV Total 600 ml 652.5 ml Dressing: saturated Wound: clean Drains: other Cardiovascular: RSR Respiratory: clear Abdomen: soft, flat, non-tender, present bowel sounds Extremities: other Laboratory Tests Test 11/08/18 03:56 11/08/18 08:30 Sodium Level 141 MMOL/L (136-145) Potassium Level 6.2 MMOL/L (3.5-5.1) *H 3.7 MMOL/L (3.5-5.1) Chloride Level 106 MMOL/L (98-107) Carbon Dioxide Level 22 MMOL/L (21-32) Anion Gap 13 mmol/L (5-15) Blood Urea Nitrogen 21 mg/dL (7-18) H Creatinine 2.9 MG/DL (0.55-1.30) H Estimat Glomerular Filtration Rate 17.9 mL/min (>60) Glucose Level 58 MG/DL (74-106) L Calcium Level 8.0 MG/DL (8.5-10.1) L Phosphorus Level 3.6 MG/DL (2.5-4.9) Plan Problems: (1) Abscess of upper arm Assessment & Plan: right upper extremity Antecubital AC fossa abscess. etiology unknown. at first area of induration / cellulitis but since has opened and draining pus. leukocytosis resolved multiple other wounds but those are chronic right arm picc but more proximal to abscess and do not seem to be related US noted and small 1cm area of likely prior abscess which is draining spontaneously. drainage less today. cellulitis improving. drainage less. improving. -dressing changes TID and prn -will monitor clinically. -continue IV ABx thank you (2) Sacral decubitus ulcer, stage IV Assessment & Plan: Pt presents with multiple Full thickness and unstageable pressure injuries. Abscess that is oozing moderate amt purulent exudate L upper ext.Pt's hygiene grossly neglected. Full thickness pressure injury L hip(L)11cm x (W)26cm with scattered mixed soft necrosis and slough wound bed and along borders .Periwound dark and indurated. Small amt brownish, malodorous exudate noted.Pressure injury to L ischium (L)2cm x (W)2.4cm with 100% soft necrosis , marginal erythema along borders.Periwound with dark skin pigmentation without erythema or induration.Full thickness pressure injury R hip (L)16.5cm x (W)11cm x (D)2cm. Mixed soft necrosis and slough to wound bed with Thick layer of soft necrosis along borders .Periwound dark without induration.Inferiorly to R hip wound is second full thickness pressure injury (L)2cm x (W)5.5cm with 100% yellow slough. Sacrum black with fluctuance(L)9.7cm x (W)13.3cm. Scattered small openings that are dry noted to wound bed. Periwound is intact. Dark skin tone without erythema or induration noted to R ischium.Historical scars noted to medial aspect of R thigh. Full thickness ulcer with 100% soft necrosis noted to posterior L tibia(L)6cm x (W)2.5cm .periwound dry and intact without erythema.Dry scaling skin both feet and web spaces of metatarsals.Dry eschar noted to 1st ,2nd .4th and 5th metatarsals of L foot .Unstable eschar noted to dorsum L 3rd metatarsal. Stable dry eschar noted to L hallux(L)1.7cm x (W) 1.6cm. Stable dry eschar noted to distal /lateral L foot (L)0.5cm x (W)0.7cm. Edges and periwound are intact. Full thickness pressure injury L heel with 90% necrosis with bordering erythema and soft slough (L)6cm x (W)6.6cm. Periwound dry and boggy without erythema. Full thickness pressure injury R heel with approx 40% necrosis,60% ivory with slough ,(+) maceration along borders .minimal brownish exudate.No odor noted. Periwound boggy without erythema. Dark skin pigmentation noted to 1-5th metatarsals R foot. Stable eschar noted to R hallux (L)1.5cm x (W)1cm.periwound is dry and intact. Tx.Plan: Apply Dakin's 0.025% soaked gauze to pressure injuries R Hip,L Hip,L Ischium and Sacrum. Cover with ABD pads and secure with Tegaderm drsgs Daily and prn. Apply Betadine to wounds R and L foot wounds .Cover with ABD and wrap with Kerlix Daily and prn. Apply Betadine to wound posterior R tibia.Cover with Abd pad and wrap with Kerlix Daily and prn. Reposition at least every 2 hours or as tolerated. Air Fluidized mattress. Off-load heels with pillow. Alfred Hodges Nov 08, 2018 12:52
[2018-11-08 16:00] VITALS: BP 140/37
[2018-11-08] MEDS ORDERED: oxyCODONE HCL/Acetaminophen 5/325mg ORAL PRN (17:00)
[2018-11-08] MEDS: D5NS 1,000 ML IV SCH (17:01)
[2018-11-08 20:00] VITALS: BP 131/71
[2018-11-08] MEDS: Dyna-Hex 2% Top Sol 2oz TOPIC SCH (20:52)
[2018-11-08] MEDS: DULoxetine 30mg cap ORAL SCH (20:52)
[2018-11-08] MEDS: Atorvastatin 20mg tab ORAL SCH (20:53)
[2018-11-08] MEDS: Epogen (for ESRD on dialysis) SUBQ SCH (20:53)
--- NOTE | 2018-11-08 22:45 | Discharge Summary ---
DATE OF ADMISSION: 11/01/2018 ADMISSION DIAGNOSES: 1. Right upper extremity abscess. 2. Multiple decubitus ulcers. 3. End-stage renal disease. 4. Diabetes. 5. Failure to thrive. DISCHARGE DIAGNOSES: 1. Right upper extremity abscess. 2. Multiple decubitus ulcers. 3. End-stage renal disease. 4. Diabetes. 5. Failure to thrive. HOSPITAL COURSE: The patient is an unfortunate elderly female with a history of end-stage renal disease. She has a history of prior multiple massive decubitus ulcers. She had been on chronic antibiotic therapy for osteomyelitis. She was admitted because of an abscess in the upper extremity. It was spontaneously draining. Surgery consultation was obtained and no incision and drainage was required as the abscess was draining spontaneously. She received intravenous antibiotics. Clinically, she was better. Her hospital course was complicated by poor p.o. intake. According to the patient's , he felt that this was because the patient did not like the food. He did bring her food, which he thought that the patient eats better. It was recommended to the patient that she have an NG-tube or a G-tube placed. She was adamantly refusing any type of enteral feeding. The risks and benefits were discussed with the patient especially with respect to her wound healing, but she continued to refuse. On discharge, she was stable. She will be discharged back to the group home facility. She will continue on 6 weeks course of antibiotic therapy for her osteomyelitis. The patient's overall prognosis is poor. DISCHARGE MEDICATIONS: Please see discharge medication list for discharge medications. DIET: Renal cardiac diet. ACTIVITIES: Ad-mohti. FOLLOWUP: The patient to follow-up by her PMD at the group home facility. Holden Quiroz M.D. DR: SRINIVASA JOB#: [id number] CC:
--- NOTE | 2018-11-08 23:45 | General Progress Note ---
Assessment/Plan Problem List: (1) Anxiety disorder ICD Codes: F41.9 - Anxiety disorder, unspecified SNOMED: 371335572 (2) Poor appetite ICD Codes: R63.0 - Anorexia SNOMED: 94600855 Assessment/Plan Remeron 15mg qhs provided ro/st Subjective Neurologic/Psychiatric: Reports: anxiety, depressed, emotional problems Allergies: Coded Allergies: No Known Allergies (Unverified , 04/11/18) Objective Last 24 Hour Vital Signs Date Time Temp Pulse Resp B/P (MAP) Pulse Ox O2 Delivery O2 Flow Rate FiO2 11/08/18 21:24 97.7 11/08/18 21:00 Nasal Cannula 2.0 11/08/18 20:00 97.7 85 17 131/71 (91) 99 11/08/18 20:00 84 11/08/18 16:00 97.7 81 16 140/37 (71) 100 11/08/18 15:17 88 11/08/18 12:00 83 11/08/18 12:00 97.7 84 18 140/58 (85) 98 11/08/18 08:00 80 11/08/18 08:00 96.8 81 12 131/75 (93) 97 11/08/18 05:46 98.2 11/08/18 04:00 98.2 84 16 120/53 (75) 100 11/08/18 04:00 81 11/08/18 04:00 Nasal Cannula 2.0 11/08/18 00:00 Nasal Cannula 2.0 11/08/18 00:00 85 11/08/18 00:00 97.7 86 18 140/63 (88) 100 Intake and Output 11/07/18 11/08/18 19:00 07:00 Intake Total 625 ml 822.5 ml Balance 625 ml 822.5 ml Intake Oral 25 ml 120 ml IV Total 600 ml 702.5 ml Laboratory Tests 11/08/18 03:56: Sodium Level 141, Potassium Level 6.2*H, Chloride Level 106, Carbon Dioxide Level 22, Anion Gap 13, Blood Urea Nitrogen 21H, Creatinine 2.9H, Estimat Glomerular Filtration Rate 17.9, Glucose Level 58L, Calcium Level 8.0L, Phosphorus Level 3.6 11/08/18 08:30: Potassium Level 3.7 Height (Feet): 5 Height (Inches): 6.00 Weight (Pounds): 162 General Appearance: no apparent distress, alert Neurologic: oriented x 3, responsive, depressed affect Rose Durant MD Nov 08, 2018 23:45
[2018-11-09] VITALS: BP 122/32
[2018-11-09 04:00] VITALS: BP 124/48
[2018-11-09] MEDS: NovoLOG Insulin Flexpen SUBQ SCH ×4 (05:43→21:00)
[2018-11-09] MEDS: Heparin 5000 units/ml inj SUBQ SCH ×3 (06:06→21:29)
[2018-11-09] MEDS: Calcium Acetate 667mg Tab ORAL SCH ×3 (06:06→16:30)
[2018-11-09 08:00] VITALS: BP 125/52
--- NOTE | 2018-11-09 08:15 | Nephrology Progress Note ---
Assessment/Plan Assessment/Plan A/P 1) ESRD- HD TTS - HD today ordered 2) Sepsis/Cellulitis- Abx 3) Anemia of CKD- on EPO 3 x week 4) Sacral Wounds- per wound care Subjective Date patient seen: Nov 09, 2018 Time patient seen: 08:13 ROS Limited/Unobtainable: No Constitutional: Reports: malaise, weakness Allergies: Coded Allergies: No Known Allergies (Unverified , 04/11/18) Subjective Patient in no overt distress, resting Objective Last 24 Hour Vital Signs Date Time Temp Pulse Resp B/P (MAP) Pulse Ox O2 Delivery O2 Flow Rate FiO2 11/09/18 07:08 Nasal Cannula 2.0 28 11/09/18 07:08 99 Nasal Cannula 2.0 28 11/09/18 04:00 87 11/09/18 04:00 97.3 86 16 124/48 (73) 93 11/09/18 00:00 97.5 85 16 122/32 (62) 94 11/09/18 00:00 82 11/08/18 21:24 97.7 11/08/18 21:00 Nasal Cannula 2.0 11/08/18 20:00 97.7 85 17 131/71 (91) 99 11/08/18 20:00 84 11/08/18 16:00 97.7 81 16 140/37 (71) 100 11/08/18 15:17 88 11/08/18 12:00 83 11/08/18 12:00 97.7 84 18 140/58 (85) 98 Intake and Output 11/08/18 11/09/18 19:00 07:00 Intake Total 450 ml Balance 450 ml IV Total 450 ml Laboratory Tests 11/08/18 08:30: Potassium Level 3.7 Height (Feet): 5 Height (Inches): 6.00 Weight (Pounds): 160 General Appearance: no apparent distress, lethargic Neck: normal alignment, supple Cardiovascular: normal rate, regular rhythm Respiratory/Chest: lungs clear, normal breath sounds Abdomen: non tender, soft Edema: 1+ Arm (L), 1+ Arm (R), 1+ Leg (L), 1+ Leg (R), 1+ Pedal (L), 1+ Pedal ( R), 1+ Generalized Rajat Turner MD Nov 09, 2018 08:15
--- NOTE | 2018-11-09 08:33 | General Progress Note ---
Assessment/Plan Problem List: (1) Abscess ICD Codes: L02.91 - Cutaneous abscess, unspecified SNOMED: 790488517 (2) Sepsis ICD Codes: A41.9 - Sepsis, unspecified organism SNOMED: 73090675 (3) Sacral pressure ulcer ICD Codes: L89.159 - Pressure ulcer of sacral region, unspecified stage SNOMED: 620536637 (4) Sacral decubitus ulcer, stage IV ICD Codes: L89.154 - Pressure ulcer of sacral region, stage 4 SNOMED: 784659973, 467113407 (5) Acute osteomyelitis of right calcaneus ICD Codes: M86.171 - Other acute osteomyelitis, right ankle and foot SNOMED: 817279718 Status: stable, progressing Assessment/Plan iv abx wound care HD per renal dvt/stress ulcer prophylaxis encourage po dc planning Subjective ROS Limited/Unobtainable: No Constitutional: Reports: malaise, weakness HEENT: Reports: no symptoms Cardiovascular: Reports: no symptoms Respiratory: Reports: no symptoms Gastrointestinal/Abdominal: Reports: no symptoms Genitourinary: Reports: no symptoms Neurologic/Psychiatric: Reports: depressed Endocrine: Reports: no symptoms Hematologic/Lymphatic: Reports: anemia Allergies: Coded Allergies: No Known Allergies (Unverified , 04/11/18) All Systems: reviewed and negative except above Subjective no events. stable. was not discharged as snf gave up pts bed poor po intake refusing ngt/gt all noted. cellulitis improving. Objective Last 24 Hour Vital Signs Date Time Temp Pulse Resp B/P (MAP) Pulse Ox O2 Delivery O2 Flow Rate FiO2 11/09/18 07:08 Nasal Cannula 2.0 28 11/09/18 07:08 99 Nasal Cannula 2.0 28 11/09/18 04:00 87 11/09/18 04:00 97.3 86 16 124/48 (73) 93 11/09/18 00:00 97.5 85 16 122/32 (62) 94 11/09/18 00:00 82 11/08/18 21:24 97.7 11/08/18 21:00 Nasal Cannula 2.0 11/08/18 20:00 97.7 85 17 131/71 (91) 99 11/08/18 20:00 84 11/08/18 16:00 97.7 81 16 140/37 (71) 100 11/08/18 15:17 88 11/08/18 12:00 83 11/08/18 12:00 97.7 84 18 140/58 (85) 98 Intake and Output 11/08/18 11/09/18 19:00 07:00 Intake Total 450 ml Balance 450 ml IV Total 450 ml Height (Feet): 5 Height (Inches): 6.00 Weight (Pounds): 160 Objective General Appearance: cachetic Neck: supple Cardiovascular: regular rhythm Respiratory/Chest: lungs clear Abdomen: normal bowel sounds, non tender, soft, no organomegaly Edema: no edema noted Arm (L), no edema noted Arm (R), no edema noted Leg (L), no edema noted Leg (R), no edema noted Pedal (L), no edema noted Pedal (R), no edema noted Generalized Skin: other - massive christiano hip wound and christiano foot Holden Quiroz MD Nov 09, 2018 08:33
[2018-11-09] MEDS: Zinc Sulfate 220mg cap ORAL SCH ×2 (09:00→09:03)
[2018-11-09] MEDS: Dakin's 0.125% Soln (Quarter Strength) 16oz TOPIC SCH ×2 (09:00→14:15)
[2018-11-09] MEDS: Ascorbic Acid 500mg tab ORAL SCH ×2 (09:00→09:04)
[2018-11-09 12:00] VITALS: BP 111/49
[2018-11-09] MEDS: D5NS 1,000 ML IV SCH ×2 (12:15→21:38)
--- NOTE | 2018-11-09 12:20 | Infectious Diseases Prog Note ---
"Assessment/Plan Assessment/Plan A: 1. right arm abscess with coag neg staph | Providencia treated 2. toe gangrene 3. bilateral heel osteomyelitis 4. renal failure on dialysis 5. diabetes mellitus 6. coag neg staph sepsis P 1. continue iv vancomycin X 33 days Subjective ROS Limited/Unobtainable: No Constitutional: Reports: no symptoms Respiratory: Reports: no symptoms Cardiovascular: Reports: no symptoms Gastrointestinal/Abdominal: Reports: no symptoms Genitourinary: Reports: no symptoms Allergies: Coded Allergies: No Known Allergies (Unverified , 04/11/18) Objective Vital Signs Last 24 Hour Vital Signs Date Time Temp Pulse Resp B/P (MAP) Pulse Ox O2 Delivery O2 Flow Rate FiO2 11/09/18 09:00 Nasal Cannula 2.0 11/09/18 08:00 84 11/09/18 08:00 99.3 87 20 125/52 (76) 96 11/09/18 07:08 Nasal Cannula 2.0 28 11/09/18 07:08 99 Nasal Cannula 2.0 28 11/09/18 04:00 87 11/09/18 04:00 97.3 86 16 124/48 (73) 93 11/09/18 00:00 97.5 85 16 122/32 (62) 94 11/09/18 00:00 82 11/08/18 21:24 97.7 11/08/18 21:00 Nasal Cannula 2.0 11/08/18 20:00 97.7 85 17 131/71 (91) 99 11/08/18 20:00 84 11/08/18 16:00 97.7 81 16 140/37 (71) 100 11/08/18 15:17 88 Height (Feet): 5 Height (Inches): 6.00 Weight (Pounds): 160 General Appearance: no acute distress HEENT: mucous membranes moist Respiratory/Chest: lungs clear Cardiovascular: normal rate, other - R arm PICC line, R permacath Abdomen: soft, non tender Extremities: no edema Skin: ulcers Neurologic/Psychiatric: alert, responsive Current Medications Medications (Trade) Dose Ordered Sig/Alexandru Route PRN Reason Start Time Stop Time Status Last Admin Dose Admin Acetaminophen (Tylenol) 325 mg Q6H PRN ORAL Mild Pain/Temp > 100.5 11/08/18 16:30 12/01/18 16:29 Ascorbic Acid (Vitamin C) 500 mg DAILY ORAL 11/09/18 09:00 12/02/18 08:59 Atorvastatin Calcium (Lipitor) 40 mg BEDTIME ORAL 11/08/18 21:00 12/01/18 20:59 11/08/18 20:53 Calcium Acetate (Phoslo) 1,334 mg TIAC ORAL 11/08/18 16:30 12/02/18 06:29 Chlorhexidine Gluconate (Lashae-Hex 2%) 1 applic DAILY@2000 TOPIC 11/08/18 20:00 12/03/18 19:59 11/08/18 20:52 Dextrose (Dextrose 50%) 25 ml Q30M PRN IV Hypoglycemia 11/08/18 16:30 12/01/18 19:59 Dextrose (Dextrose 50%) 50 ml Q30M PRN IV Hypoglycemia 11/08/18 16:30 12/01/18 19:59 Dextrose/Sodium Chloride 1,000 ml @ 50 mls/hr Q20H IV 11/08/18 16:15 12/04/18 13:58 11/08/18 17:01 Duloxetine HCl (Cymbalta) 60 mg QHS ORAL 11/08/18 21:00 12/01/18 20:59 11/08/18 20:52 Epoetin Vishal (Procrit (for ESRD on dialysis)) 7,500 units THU-THU-THU SUBQ 11/08/18 21:00 12/01/18 20:59 11/08/18 20:53 Famotidine (Pepcid) 20 mg DAILY ORAL 11/09/18 09:00 12/02/18 08:59 Folic Acid (Folate) 1 mg DAILY ORAL 11/09/18 09:00 12/02/18 08:59 Heparin Sodium (Porcine) (Heparin 5000 units/ml) 5,000 units EVERY 8 HOURS SUBQ 11/08/18 22:00 12/01/18 21:59 11/09/18 06:06 Insulin Aspart (NovoLOG) BEFORE MEALS AND HS SUBQ 11/08/18 16:30 12/01/18 20:59 Mirtazapine (Remeron) 15 mg BEDTIME ORAL 11/08/18 21:00 12/01/18 20:59 11/08/18 20:53 Morphine Sulfate (Morphine Sulfate) 1 mg Q4H PRN IVP Severe Pain (Pain Scale 7-10) 11/08/18 17:30 11/09/18 21:29 11/08/18 20:54 Oxycodone/ Acetaminophen (Percocet 10/325) 1 tab Q6H PRN ORAL Moderate Pain (Pain Scale 4-6) 11/08/18 17:00 11/09/18 16:59 Oxycodone/ Acetaminophen (Percocet 5-325) 1 tab Q4H PRN ORAL Moderate Breakthru Pain (5-7) 11/08/18 17:00 11/09/18 16:59 Sodium Hypochlorite (Dakin's Quarter Strength) 1 applic DAILY TOPIC 11/09/18 09:00 12/02/18 11:29 Vancomycin HCl (Vanco rx to dose) 1 ea DAILY PRN MISC Per rx protocol 11/09/18 09:00 12/01/18 19:59 Zinc Sulfate (Zinc Sulfate) 220 mg DAILY ORAL 11/09/18 09:00 12/02/18 08:59 Daniel Aguilar MD Nov 09, 2018 12:20"
--- NOTE | 2018-11-09 12:22 | General Surgery Progress Note ---
General Surgery-Progress Note Subjective Symptoms: improved Additional Comments no acute events. doing better. Objective Last 24 Hour Vital Signs Date Time Temp Pulse Resp B/P (MAP) Pulse Ox O2 Delivery O2 Flow Rate FiO2 11/09/18 09:00 Nasal Cannula 2.0 11/09/18 08:00 84 11/09/18 08:00 99.3 87 20 125/52 (76) 96 11/09/18 07:08 Nasal Cannula 2.0 28 11/09/18 07:08 99 Nasal Cannula 2.0 28 11/09/18 04:00 87 11/09/18 04:00 97.3 86 16 124/48 (73) 93 11/09/18 00:00 97.5 85 16 122/32 (62) 94 11/09/18 00:00 82 11/08/18 21:24 97.7 11/08/18 21:00 Nasal Cannula 2.0 11/08/18 20:00 97.7 85 17 131/71 (91) 99 11/08/18 20:00 84 11/08/18 16:00 97.7 81 16 140/37 (71) 100 11/08/18 15:17 88 I&O Intake and Output 11/08/18 11/09/18 19:00 07:00 Intake Total 450 ml Balance 450 ml IV Total 450 ml Dressing: saturated Wound: clean, other Drains: other Cardiovascular: RSR Respiratory: clear Abdomen: soft, non-tender, present bowel sounds Extremities: other Plan Problems: (1) Abscess of upper arm Assessment & Plan: right upper extremity Antecubital AC fossa abscess. etiology unknown. at first area of induration / cellulitis but since has opened and draining pus. leukocytosis resolved multiple other wounds but those are chronic right arm picc but more proximal to abscess and do not seem to be related US noted and small 1cm area of likely prior abscess which is draining spontaneously. drainage less today. cellulitis improving. drainage less. improving. -dressing changes TID and prn -will monitor clinically. -continue IV ABx -can transition to oral abx for course duration. -d/c planning thank you (2) Sacral decubitus ulcer, stage IV Assessment & Plan: Pt presents with multiple Full thickness and unstageable pressure injuries. Abscess that is oozing moderate amt purulent exudate L upper ext.Pt's hygiene grossly neglected. Full thickness pressure injury L hip(L)11cm x (W)26cm with scattered mixed soft necrosis and slough wound bed and along borders .Periwound dark and indurated. Small amt brownish, malodorous exudate noted.Pressure injury to L ischium (L)2cm x (W)2.4cm with 100% soft necrosis , marginal erythema along borders.Periwound with dark skin pigmentation without erythema or induration.Full thickness pressure injury R hip (L)16.5cm x (W)11cm x (D)2cm. Mixed soft necrosis and slough to wound bed with Thick layer of soft necrosis along borders .Periwound dark without induration.Inferiorly to R hip wound is second full thickness pressure injury (L)2cm x (W)5.5cm with 100% yellow slough. Sacrum black with fluctuance(L)9.7cm x (W)13.3cm. Scattered small openings that are dry noted to wound bed. Periwound is intact. Dark skin tone without erythema or induration noted to R ischium.Historical scars noted to medial aspect of R thigh. Full thickness ulcer with 100% soft necrosis noted to posterior L tibia(L)6cm x (W)2.5cm .periwound dry and intact without erythema.Dry scaling skin both feet and web spaces of metatarsals.Dry eschar noted to 1st ,2nd .4th and 5th metatarsals of L foot .Unstable eschar noted to dorsum L 3rd metatarsal. Stable dry eschar noted to L hallux(L)1.7cm x (W) 1.6cm. Stable dry eschar noted to distal /lateral L foot (L)0.5cm x (W)0.7cm. Edges and periwound are intact. Full thickness pressure injury L heel with 90% necrosis with bordering erythema and soft slough (L)6cm x (W)6.6cm. Periwound dry and boggy without erythema. Full thickness pressure injury R heel with approx 40% necrosis,60% ivory with slough ,(+) maceration along borders .minimal brownish exudate.No odor noted. Periwound boggy without erythema. Dark skin pigmentation noted to 1-5th metatarsals R foot. Stable eschar noted to R hallux (L)1.5cm x (W)1cm.periwound is dry and intact. Tx.Plan: Apply Dakin's 0.025% soaked gauze to pressure injuries R Hip,L Hip,L Ischium and Sacrum. Cover with ABD pads and secure with Tegaderm drsgs Daily and prn. Apply Betadine to wounds R and L foot wounds .Cover with ABD and wrap with Kerlix Daily and prn. Apply Betadine to wound posterior R tibia.Cover with Abd pad and wrap with Kerlix Daily and prn. Reposition at least every 2 hours or as tolerated. Air Fluidized mattress. Off-load heels with pillow. Alfred Hodges Nov 09, 2018 12:22
[2018-11-09] MEDS: Morphine Sulfate 2mg/ml Inj IVP PRN ×2 (12:43→18:27)
[2018-11-09 16:00] VITALS: BP 92/37
[2018-11-09 20:00] VITALS: BP 106/71
[2018-11-09] MEDS ORDERED: Vancomycin 1gm/D5W 275ml IVPB ONE ×2 (20:00)
[2018-11-09] MEDS: Dyna-Hex 2% Top Sol 2oz TOPIC SCH (21:27)
[2018-11-09] MEDS: Atorvastatin 20mg tab ORAL SCH (21:27)
[2018-11-09] MEDS: DULoxetine 30mg cap ORAL SCH (21:27)
[2018-11-10] VITALS: BP 116/69
--- NOTE | 2018-11-10 00:07 | General Progress Note ---
Assessment/Plan Problem List: (1) Anxiety disorder ICD Codes: F41.9 - Anxiety disorder, unspecified SNOMED: 812506661 (2) Poor appetite ICD Codes: R63.0 - Anorexia SNOMED: 67799858 Status: stable, progressing Assessment/Plan Remeron 15mg qhs provided ro/st Subjective Neurologic/Psychiatric: Reports: anxiety, depressed, emotional problems Allergies: Coded Allergies: No Known Allergies (Unverified , 04/11/18) Objective Last 24 Hour Vital Signs Date Time Temp Pulse Resp B/P (MAP) Pulse Ox O2 Delivery O2 Flow Rate FiO2 11/09/18 21:00 Nasal Cannula 2.0 11/09/18 20:00 92 11/09/18 20:00 99.0 100 19 106/71 (83) 100 11/09/18 16:00 97.5 90 20 92/37 (55) 96 11/09/18 16:00 92 11/09/18 12:00 86 11/09/18 12:00 97.7 88 19 111/49 (69) 96 11/09/18 09:00 Nasal Cannula 2.0 11/09/18 08:00 84 11/09/18 08:00 99.3 87 20 125/52 (76) 96 11/09/18 07:08 Nasal Cannula 2.0 28 11/09/18 07:08 99 Nasal Cannula 2.0 28 11/09/18 04:00 87 11/09/18 04:00 97.3 86 16 124/48 (73) 93 Intake and Output 11/09/18 11/10/18 19:00 07:00 Output Total 1200 ml Balance -1200 ml Output Hemodialysis UF 1200 ml Height (Feet): 5 Height (Inches): 6.00 Weight (Pounds): 160 General Appearance: alert Neurologic: oriented x 3, responsive, depressed affect Rose Durant MD Nov 10, 2018 00:07
[2018-11-10] MEDS: Heparin 5000 units/ml inj SUBQ SCH ×3 (06:00→22:00)
[2018-11-10] MEDS: Calcium Acetate 667mg Tab ORAL SCH ×3 (06:30→16:30)
[2018-11-10] MEDS: NovoLOG Insulin Flexpen SUBQ SCH ×4 (06:30→21:00)
[2018-11-10 08:00] VITALS: BP 110/50
[2018-11-10] MEDS: Ascorbic Acid 500mg tab ORAL SCH (09:00)
[2018-11-10] MEDS: Zinc Sulfate 220mg cap ORAL SCH (09:00)
--- NOTE | 2018-11-10 09:32 | Nephrology Progress Note ---
Assessment/Plan Assessment/Plan A/P 1) ESRD- HD TTS while inpatient 2) Sepsis/Cellulitis- Abx 3) Anemia of CKD- on EPO 3 x week until Hgb >11 4) Sacral Wounds- per wound care Patient declining food/labs and medications Subjective Date patient seen: Nov 10, 2018 Time patient seen: 09:30 ROS Limited/Unobtainable: No Constitutional: Reports: malaise, weakness Allergies: Coded Allergies: No Known Allergies (Unverified , 04/11/18) Subjective Patient awaiting placement for discharge Objective Last 24 Hour Vital Signs Date Time Temp Pulse Resp B/P (MAP) Pulse Ox O2 Delivery O2 Flow Rate FiO2 11/10/18 04:00 87 11/10/18 00:00 90 11/10/18 00:00 97.9 90 20 116/69 (85) 100 11/09/18 21:00 Nasal Cannula 2.0 11/09/18 20:00 92 11/09/18 20:00 99.0 100 19 106/71 (83) 100 11/09/18 16:00 97.5 90 20 92/37 (55) 96 11/09/18 16:00 92 11/09/18 12:00 86 11/09/18 12:00 97.7 88 19 111/49 (69) 96 Intake and Output 11/09/18 11/10/18 19:00 07:00 Intake Total 200 ml Output Total 1200 ml Balance -1200 ml 200 ml Intake Oral 200 ml Output Hemodialysis UF 1200 ml Height (Feet): 5 Height (Inches): 6.00 Weight (Pounds): 160 General Appearance: no apparent distress, alert EENT: normal ENT inspection Neck: normal alignment Cardiovascular: normal rate, regular rhythm Respiratory/Chest: lungs clear, normal breath sounds Abdomen: non tender, soft Edema: 1+ Arm (L), 1+ Arm (R), 1+ Leg (L), 1+ Leg (R), 1+ Pedal (L), 1+ Pedal ( R), 1+ Generalized Rajat Turner MD Nov 10, 2018 09:32
[2018-11-10] MEDS ORDERED: Morphine Sulfate 2mg/ml Inj IVP SCH (10:15)
[2018-11-10] MEDS: Dakin's 0.125% Soln (Quarter Strength) 16oz TOPIC SCH (10:29)
--- NOTE | 2018-11-10 10:47 | Infectious Diseases Prog Note ---
"Assessment/Plan Assessment/Plan antibiotics : iv vancomycin, zosyn A 1. right arm abscess with coag neg staph | [facility]encia s/p rx 2. toe gangrene 3. bilateral heel osteomyelitis 4. renal failure on dialysis 5. diabetes mellitus 6. coag neg staph sepsis P 1. continue iv vancomycin 32 more days after dialysis 2. will follow up cultures Subjective Constitutional: Denies: fever, chills Respiratory: Denies: shortness of breath, dry cough Gastrointestinal/Abdominal: Denies: nausea, vomiting, diarrhea Musculoskeletal: Reports: pain - mild Allergies: Coded Allergies: No Known Allergies (Unverified , 04/11/18) Objective Vital Signs Last 24 Hour Vital Signs Date Time Temp Pulse Resp B/P (MAP) Pulse Ox O2 Delivery O2 Flow Rate FiO2 11/10/18 09:00 Nasal Cannula 2.0 11/10/18 08:00 88 11/10/18 08:00 98.1 88 20 110/50 (70) 97 11/10/18 04:00 87 11/10/18 00:00 90 11/10/18 00:00 97.9 90 20 116/69 (85) 100 11/09/18 21:00 Nasal Cannula 2.0 11/09/18 20:00 92 11/09/18 20:00 99.0 100 19 106/71 (83) 100 11/09/18 16:00 97.5 90 20 92/37 (55) 96 11/09/18 16:00 92 11/09/18 12:00 86 11/09/18 12:00 97.7 88 19 111/49 (69) 96 Height (Feet): 5 Height (Inches): 6.00 Weight (Pounds): 160 Respiratory/Chest: lungs clear Cardiovascular: normal rate, regular rhythm, no gallop/murmur Abdomen: soft, non tender Extremities: no edema, other - right arm PICC, right subclavian catheter Skin: ulcers - necrotic on both heels, toes necrotic, right and left hip large clean ulcers, sacral ulcer Current Medications Medications (Trade) Dose Ordered Sig/Alexandru Route PRN Reason Start Time Stop Time Status Last Admin Dose Admin Acetaminophen (Tylenol) 325 mg Q6H PRN ORAL Mild Pain/Temp > 100.5 11/08/18 16:30 12/01/18 16:29 Ascorbic Acid (Vitamin C) 500 mg DAILY ORAL 11/09/18 09:00 12/02/18 08:59 Atorvastatin Calcium (Lipitor) 40 mg BEDTIME ORAL 11/08/18 21:00 12/01/18 20:59 11/09/18 21:27 Calcium Acetate (Phoslo) 1,334 mg TIAC ORAL 11/08/18 16:30 12/02/18 06:29 Chlorhexidine Gluconate (Lashae-Hex 2%) 1 applic DAILY@2000 TOPIC 11/08/18 20:00 12/03/18 19:59 11/09/18 21:27 Dextrose (Dextrose 50%) 25 ml Q30M PRN IV Hypoglycemia 11/08/18 16:30 12/01/18 19:59 11/09/18 12:35 Dextrose (Dextrose 50%) 50 ml Q30M PRN IV Hypoglycemia 11/08/18 16:30 12/01/18 19:59 Dextrose/Sodium Chloride 1,000 ml @ 50 mls/hr Q20H IV 11/08/18 16:15 12/04/18 13:58 11/09/18 21:38 Duloxetine HCl (Cymbalta) 60 mg QHS ORAL 11/08/18 21:00 12/01/18 20:59 11/09/18 21:27 Epoetin Vishal (Procrit (for ESRD on dialysis)) 7,500 units THU-THU-THU SUBQ 11/08/18 21:00 12/01/18 20:59 11/08/18 20:53 Famotidine (Pepcid) 20 mg DAILY ORAL 11/09/18 09:00 12/02/18 08:59 Folic Acid (Folate) 1 mg DAILY ORAL 11/09/18 09:00 12/02/18 08:59 Heparin Sodium (Porcine) (Heparin 5000 units/ml) 5,000 units EVERY 8 HOURS SUBQ 11/08/18 22:00 12/01/18 21:59 11/09/18 14:19 Insulin Aspart (NovoLOG) BEFORE MEALS AND HS SUBQ 11/08/18 16:30 12/01/18 20:59 Mirtazapine (Remeron) 15 mg BEDTIME ORAL 11/08/18 21:00 12/01/18 20:59 11/09/18 21:27 Morphine Sulfate (Morphine Sulfate) 1 mg ONCE IVP 11/10/18 10:15 11/10/18 11:15 11/10/18 10:29 Sodium Hypochlorite (Dakin's Quarter Strength) 1 applic DAILY TOPIC 11/09/18 09:00 12/02/18 11:29 11/10/18 10:29 Vancomycin HCl (Vanco rx to dose) 1 ea DAILY PRN MISC Per rx protocol 11/09/18 09:00 12/01/18 19:59 Zinc Sulfate (Zinc Sulfate) 220 mg DAILY ORAL 11/09/18 09:00 12/02/18 08:59 Arash Shafer MD Nov 10, 2018 10:47"
[2018-11-10 12:00] VITALS: BP 139/68
--- NOTE | 2018-11-10 15:15 | General Progress Note ---
Assessment/Plan Problem List: (1) Anxiety disorder ICD Codes: F41.9 - Anxiety disorder, unspecified SNOMED: 832288755 (2) Poor appetite ICD Codes: R63.0 - Anorexia SNOMED: 86910675 Status: stable Assessment/Plan Remeron 15mg qhs provided ro/st Subjective Neurologic/Psychiatric: Reports: anxiety, depressed Allergies: Coded Allergies: No Known Allergies (Unverified , 04/11/18) Objective Last 24 Hour Vital Signs Date Time Temp Pulse Resp B/P (MAP) Pulse Ox O2 Delivery O2 Flow Rate FiO2 11/10/18 12:00 94 11/10/18 12:00 97.3 97 21 139/68 (91) 97 11/10/18 09:00 Nasal Cannula 2.0 11/10/18 08:00 88 11/10/18 08:00 98.1 88 20 110/50 (70) 97 11/10/18 07:50 97 Nasal Cannula 2.0 28 11/10/18 07:50 Nasal Cannula 2.0 28 11/10/18 04:00 87 11/10/18 00:00 90 11/10/18 00:00 97.9 90 20 116/69 (85) 100 11/09/18 21:00 Nasal Cannula 2.0 11/09/18 20:00 92 11/09/18 20:00 99.0 100 19 106/71 (83) 100 11/09/18 16:00 97.5 90 20 92/37 (55) 96 11/09/18 16:00 92 Intake and Output 11/09/18 11/10/18 19:00 07:00 Intake Total 200 ml Output Total 1200 ml Balance -1200 ml 200 ml Intake Oral 200 ml Output Hemodialysis UF 1200 ml Height (Feet): 5 Height (Inches): 6.00 Weight (Pounds): 160 General Appearance: alert, thin Neurologic: oriented x 3, responsive, depressed affect Rose Durant MD Nov 10, 2018 15:15
[2018-11-10 16:00] VITALS: BP 137/73
[2018-11-10 20:00] VITALS: BP 165/75
[2018-11-10 20:37] VITALS: BP 139/56
[2018-11-10] MEDS: Morphine Sulfate 2mg/ml Inj IVP PRN (21:04)
[2018-11-10] MEDS: Atorvastatin 20mg tab ORAL SCH (21:05)
[2018-11-10] MEDS: DULoxetine 30mg cap ORAL SCH (21:05)
[2018-11-10] MEDS: Epogen (for ESRD on dialysis) SUBQ SCH (21:05)
[2018-11-10] MEDS: Dyna-Hex 2% Top Sol 2oz TOPIC SCH (21:05)
--- NOTE | 2018-11-10 22:07 | General Surgery Progress Note ---
General Surgery-Progress Note Subjective Additional Comments no acute events. wound healing doing well Objective Last 24 Hour Vital Signs Date Time Temp Pulse Resp B/P (MAP) Pulse Ox O2 Delivery O2 Flow Rate FiO2 11/10/18 20:37 98.1 106 21 139/56 (83) 99 11/10/18 20:14 98 Nasal Cannula 2.0 28 11/10/18 20:14 Nasal Cannula 2.0 28 11/10/18 16:00 98.3 93 20 137/73 (94) 97 11/10/18 16:00 90 11/10/18 12:00 94 11/10/18 12:00 97.3 97 21 139/68 (91) 97 11/10/18 09:00 Nasal Cannula 2.0 11/10/18 08:00 88 11/10/18 08:00 98.1 88 20 110/50 (70) 97 11/10/18 07:50 97 Nasal Cannula 2.0 28 11/10/18 07:50 Nasal Cannula 2.0 28 11/10/18 04:00 87 11/10/18 00:00 90 11/10/18 00:00 97.9 90 20 116/69 (85) 100 I&O Intake and Output 11/09/18 11/10/18 18:59 06:59 Intake Total 200 ml Output Total 1200 ml Balance -1200 ml 200 ml Intake Oral 200 ml Output Hemodialysis UF 1200 ml Dressing: saturated Wound: clean, other Drains: other Cardiovascular: RSR Respiratory: clear Abdomen: soft, non-tender, present bowel sounds Extremities: other Plan Problems: (1) Abscess of upper arm Assessment & Plan: right upper extremity Antecubital AC fossa abscess. etiology unknown. at first area of induration / cellulitis but since has opened and draining pus. leukocytosis resolved multiple other wounds but those are chronic right arm picc but more proximal to abscess and do not seem to be related US noted and small 1cm area of likely prior abscess which is draining spontaneously. drainage less today. cellulitis improving. drainage less. improving. -dressing changes TID and prn -will monitor clinically. -continue IV ABx -can transition to oral abx for course duration. -d/c planning thank you (2) Sacral decubitus ulcer, stage IV Assessment & Plan: Pt presents with multiple Full thickness and unstageable pressure injuries. Abscess that is oozing moderate amt purulent exudate L upper ext.Pt's hygiene grossly neglected. Full thickness pressure injury L hip(L)11cm x (W)26cm with scattered mixed soft necrosis and slough wound bed and along borders .Periwound dark and indurated. Small amt brownish, malodorous exudate noted.Pressure injury to L ischium (L)2cm x (W)2.4cm with 100% soft necrosis , marginal erythema along borders.Periwound with dark skin pigmentation without erythema or induration.Full thickness pressure injury R hip (L)16.5cm x (W)11cm x (D)2cm. Mixed soft necrosis and slough to wound bed with Thick layer of soft necrosis along borders .Periwound dark without induration.Inferiorly to R hip wound is second full thickness pressure injury (L)2cm x (W)5.5cm with 100% yellow slough. Sacrum black with fluctuance(L)9.7cm x (W)13.3cm. Scattered small openings that are dry noted to wound bed. Periwound is intact. Dark skin tone without erythema or induration noted to R ischium.Historical scars noted to medial aspect of R thigh. Full thickness ulcer with 100% soft necrosis noted to posterior L tibia(L)6cm x (W)2.5cm .periwound dry and intact without erythema.Dry scaling skin both feet and web spaces of metatarsals.Dry eschar noted to 1st ,2nd .4th and 5th metatarsals of L foot .Unstable eschar noted to dorsum L 3rd metatarsal. Stable dry eschar noted to L hallux(L)1.7cm x (W) 1.6cm. Stable dry eschar noted to distal /lateral L foot (L)0.5cm x (W)0.7cm. Edges and periwound are intact. Full thickness pressure injury L heel with 90% necrosis with bordering erythema and soft slough (L)6cm x (W)6.6cm. Periwound dry and boggy without erythema. Full thickness pressure injury R heel with approx 40% necrosis,60% ivory with slough ,(+) maceration along borders .minimal brownish exudate.No odor noted. Periwound boggy without erythema. Dark skin pigmentation noted to 1-5th metatarsals R foot. Stable eschar noted to R hallux (L)1.5cm x (W)1cm.periwound is dry and intact. Tx.Plan: Apply Dakin's 0.025% soaked gauze to pressure injuries R Hip,L Hip,L Ischium and Sacrum. Cover with ABD pads and secure with Tegaderm drsgs Daily and prn. Apply Betadine to wounds R and L foot wounds .Cover with ABD and wrap with Kerlix Daily and prn. Apply Betadine to wound posterior R tibia.Cover with Abd pad and wrap with Kerlix Daily and prn. Reposition at least every 2 hours or as tolerated. Air Fluidized mattress. Off-load heels with pillow. Alfred Hodges Nov 10, 2018 22:07
[2018-11-10] MEDS: D5NS 1,000 ML IV SCH (22:18)
[2018-11-11] VITALS: BP 111/46
[2018-11-11] MEDS: Morphine Sulfate 2mg/ml Inj IVP PRN ×4 (01:13→18:41)
[2018-11-11 04:00] VITALS: BP 139/56
[2018-11-11] MEDS: NovoLOG Insulin Flexpen SUBQ SCH ×4 (05:48→21:00)
[2018-11-11] MEDS: Heparin 5000 units/ml inj SUBQ SCH ×3 (05:49→22:07)
[2018-11-11] MEDS: Calcium Acetate 667mg Tab ORAL SCH ×3 (06:03→17:16)
[2018-11-11 08:25] VITALS: BP 110/50
--- NOTE | 2018-11-11 08:25 | Nephrology Progress Note ---
Assessment/Plan Assessment/Plan A/P 1) ESRD- HD TTS - HD ordered for today 2) Sepsis/Cellulitis- Abx 3) Anemia of CKD- on EPO 3 x week until Hgb >11 4) Sacral Wounds- per wound care Patient declining food/labs and medications Awaiting NH placement Subjective Date patient seen: Nov 11, 2018 Time patient seen: 08:23 ROS Limited/Unobtainable: No Constitutional: Reports: malaise, weakness Allergies: Coded Allergies: No Known Allergies (Unverified , 04/11/18) Subjective Patient awaiting placement for discharge. Resting in no distress Objective Last 24 Hour Vital Signs Date Time Temp Pulse Resp B/P (MAP) Pulse Ox O2 Delivery O2 Flow Rate FiO2 11/11/18 04:00 89 11/11/18 04:00 98.1 90 18 139/56 (83) 95 11/11/18 01:43 98.7 11/11/18 00:00 98.7 99 22 111/46 (67) 95 11/11/18 00:00 98 11/10/18 21:00 Nasal Cannula 2.0 11/10/18 20:37 98.1 106 21 139/56 (83) 99 11/10/18 20:14 98 Nasal Cannula 2.0 28 11/10/18 20:14 Nasal Cannula 2.0 28 11/10/18 20:00 98 11/10/18 16:00 98.3 93 20 137/73 (94) 97 11/10/18 16:00 90 11/10/18 12:00 94 11/10/18 12:00 97.3 97 21 139/68 (91) 97 11/10/18 09:00 Nasal Cannula 2.0 Intake and Output 11/10/18 11/11/18 19:00 07:00 Intake Total 100 ml Output Total 0 ml Balance 100 ml Intake Oral 100 ml Output Urine Total 0 ml Stool Total 0 ml Height (Feet): 5 Height (Inches): 6.00 Weight (Pounds): 160 General Appearance: lethargic EENT: normal ENT inspection Neck: normal alignment, supple Cardiovascular: normal rate, regular rhythm Respiratory/Chest: rhonchi - bilaterally Abdomen: non tender, soft Edema: 1+ Arm (L), 1+ Arm (R), 1+ Leg (L), 1+ Leg (R), 1+ Pedal (L), 1+ Pedal ( R), 1+ Generalized Rajat Turner MD Nov 11, 2018 08:25
[2018-11-11] MEDS: Zinc Sulfate 220mg cap ORAL SCH (08:45)
[2018-11-11] MEDS: Ascorbic Acid 500mg tab ORAL SCH (08:45)
[2018-11-11] MEDS: Dakin's 0.125% Soln (Quarter Strength) 16oz TOPIC SCH (09:00)
[2018-11-11 09:38] LABS: BASOPHILS % (AUTO) 2.7 % (0.0-2.0); EOSINOPHILS % (AUTO) 3.6 % (0.0-3.0); HEMATOCRIT 27.6 % (37.0-47.0); HEMOGLOBIN 8.2 G/DL (12.0-16.0); LYMPHOCYTES % (AUTO) 39.1 % (20.0-45.0); MEAN CORPUSCULAR VOLUME 98 FL (80-99); MONOCYTES % (AUTO) 4.5 % (1.0-10.0); NEUTROPHILS % (AUTO) 50.2 % (45.0-75.0); PLATELET COUNT 118 K/UL (150-450); RED BLOOD COUNT 2.81 M/UL (4.20-5.40); RED CELL DISTRIBUTION WIDTH 14.6 % (11.6-14.8); WHITE BLOOD COUNT 4.6 K/UL (4.8-10.8)
[2018-11-11 09:40] LABS: ALANINE AMINOTRANSFERASE < 6 U/L (12-78); ALBUMIN/GLOBULIN RATIO 0.2 (1.0-2.7); ALKALINE PHOSPHATASE 554 U/L (46-116); ANION GAP 4 mmol/L (5-15); ASPARTATE AMINO TRANSFERASE 16 U/L (15-37); BILIRUBIN,TOTAL 0.6 MG/DL (0.2-1.0); BLOOD UREA NITROGEN 15 mg/dL (7-18); CALCIUM 7.6 MG/DL (8.5-10.1); CARBON DIOXIDE 29 MMOL/L (21-32); CHLORIDE 109 MMOL/L (98-107); CREATININE 2.6 MG/DL (0.55-1.30); POTASSIUM 3.7 MMOL/L (3.5-5.1); SODIUM 142 MMOL/L (136-145)
--- NOTE | 2018-11-11 11:06 | Infectious Diseases Prog Note ---
"Assessment/Plan Assessment/Plan A: 1. right arm abscess with coag neg staph | [facility] treated 2. toe gangrene 3. bilateral heel osteomyelitis 4. renal failure on dialysis 5. diabetes mellitus 6. coag neg staph sepsis P 1. continue iv vancomycin X 31 days 2. Waiting for placement Subjective ROS Limited/Unobtainable: No Constitutional: Reports: no symptoms Respiratory: Reports: no symptoms Cardiovascular: Reports: no symptoms Gastrointestinal/Abdominal: Reports: no symptoms Musculoskeletal: Reports: no symptoms Allergies: Coded Allergies: No Known Allergies (Unverified , 04/11/18) Objective Vital Signs Last 24 Hour Vital Signs Date Time Temp Pulse Resp B/P (MAP) Pulse Ox O2 Delivery O2 Flow Rate FiO2 11/11/18 10:09 Nasal Cannula 2.0 11/11/18 08:25 98.1 90 18 110/50 (70) 95 11/11/18 07:36 91 11/11/18 04:00 89 11/11/18 04:00 98.1 90 18 139/56 (83) 95 11/11/18 01:43 98.7 11/11/18 00:00 98.7 99 22 111/46 (67) 95 11/11/18 00:00 98 11/10/18 21:00 Nasal Cannula 2.0 11/10/18 20:37 98.1 106 21 139/56 (83) 99 11/10/18 20:14 98 Nasal Cannula 2.0 28 11/10/18 20:14 Nasal Cannula 2.0 28 11/10/18 20:00 98 11/10/18 16:00 98.3 93 20 137/73 (94) 97 11/10/18 16:00 90 11/10/18 12:00 94 11/10/18 12:00 97.3 97 21 139/68 (91) 97 Height (Feet): 5 Height (Inches): 6.00 Weight (Pounds): 160 General Appearance: no acute distress HEENT: mucous membranes moist Respiratory/Chest: lungs clear Cardiovascular: normal rate, other - PICC line & Permacath Abdomen: soft, non tender Skin: ulcers Neurologic/Psychiatric: alert, responsive Laboratory Tests Test 11/11/18 09:00 11/11/18 10:20 White Blood Count 4.6 K/UL (4.8-10.8) L Red Blood Count 2.81 M/UL (4.20-5.40) L Hemoglobin 8.2 G/DL (12.0-16.0) L Hematocrit 27.6 % (37.0-47.0) L Mean Corpuscular Volume 98 FL (80-99) Mean Corpuscular Hemoglobin 29.1 PG (27.0-31.0) Mean Corpuscular Hemoglobin Concent 29.6 G/DL (32.0-36.0) L Red Cell Distribution Width 14.6 % (11.6-14.8) Platelet Count 118 K/UL (150-450) L Mean Platelet Volume 7.0 FL (6.5-10.1) Neutrophils (%) (Auto) 50.2 % (45.0-75.0) Lymphocytes (%) (Auto) 39.1 % (20.0-45.0) Monocytes (%) (Auto) 4.5 % (1.0-10.0) Eosinophils (%) (Auto) 3.6 % (0.0-3.0) H Basophils (%) (Auto) 2.7 % (0.0-2.0) H Sodium Level 142 MMOL/L (136-145) Potassium Level 3.7 MMOL/L (3.5-5.1) Chloride Level 109 MMOL/L (98-107) H Carbon Dioxide Level 29 MMOL/L (21-32) Anion Gap 4 mmol/L (5-15) L Blood Urea Nitrogen 15 mg/dL (7-18) Creatinine 2.6 MG/DL (0.55-1.30) H Estimat Glomerular Filtration Rate 20.3 mL/min (>60) Glucose Level 88 MG/DL (74-106) Calcium Level 7.6 MG/DL (8.5-10.1) L Total Bilirubin 0.6 MG/DL (0.2-1.0) Aspartate Amino Transf (AST/SGOT) 16 U/L (15-37) Alanine Aminotransferase (ALT/SGPT) < 6 U/L (12-78) L Alkaline Phosphatase 554 U/L (46-116) H Pro-B-Type Natriuretic Peptide > 11643 pg/mL (0-125) H Total Protein 5.8 G/DL (6.4-8.2) L Albumin 1.0 G/DL (3.4-5.0) L Globulin 4.8 g/dL Albumin/Globulin Ratio 0.2 (1.0-2.7) L Random Vancomycin Level 22.2 ug/mL Current Medications Medications (Trade) Dose Ordered Sig/Alexandru Route PRN Reason Start Time Stop Time Status Last Admin Dose Admin Acetaminophen (Tylenol) 325 mg Q6H PRN ORAL Mild Pain/Temp > 100.5 11/08/18 16:30 12/01/18 16:29 Ascorbic Acid (Vitamin C) 500 mg DAILY ORAL 11/09/18 09:00 12/02/18 08:59 Atorvastatin Calcium (Lipitor) 40 mg BEDTIME ORAL 11/08/18 21:00 12/01/18 20:59 11/10/18 21:05 Calcium Acetate (Phoslo) 1,334 mg TIAC ORAL 11/08/18 16:30 12/02/18 06:29 Chlorhexidine Gluconate (Lashae-Hex 2%) 1 applic DAILY@2000 TOPIC 11/08/18 20:00 12/03/18 19:59 11/10/18 21:05 Dextrose (Dextrose 50%) 25 ml Q30M PRN IV Hypoglycemia 11/08/18 16:30 12/01/18 19:59 11/11/18 05:54 Dextrose (Dextrose 50%) 50 ml Q30M PRN IV Hypoglycemia 11/08/18 16:30 12/01/18 19:59 Dextrose/Sodium Chloride 1,000 ml @ 50 mls/hr Q20H IV 11/08/18 16:15 12/04/18 13:58 11/10/18 22:18 Duloxetine HCl (Cymbalta) 60 mg QHS ORAL 11/08/18 21:00 12/01/18 20:59 11/10/18 21:05 Epoetin Vishal (Procrit (for ESRD on dialysis)) 7,500 units THU-THU-THU SUBQ 11/08/18 21:00 12/01/18 20:59 11/10/18 21:05 Famotidine (Pepcid) 20 mg DAILY ORAL 11/09/18 09:00 12/02/18 08:59 Folic Acid (Folate) 1 mg DAILY ORAL 11/09/18 09:00 12/02/18 08:59 Heparin Sodium (Porcine) (Heparin 5000 units/ml) 5,000 units EVERY 8 HOURS SUBQ 11/08/18 22:00 12/01/18 21:59 11/09/18 14:19 Insulin Aspart (NovoLOG) BEFORE MEALS AND HS SUBQ 11/08/18 16:30 12/01/18 20:59 Mirtazapine (Remeron) 15 mg BEDTIME ORAL 11/08/18 21:00 12/01/18 20:59 11/10/18 21:05 Morphine Sulfate (Morphine Sulfate) 1 mg Q4H PRN IVP Severe Pain (Pain Scale 7-10) 11/10/18 16:45 11/17/18 16:44 11/11/18 01:13 Sodium Hypochlorite (Dakin's Quarter Strength) 1 applic DAILY TOPIC 11/09/18 09:00 12/02/18 11:29 11/10/18 10:29 Vancomycin HCl (Vanco rx to dose) 1 ea DAILY PRN MISC Per rx protocol 11/09/18 09:00 12/01/18 19:59 Zinc Sulfate (Zinc Sulfate) 220 mg DAILY ORAL 11/09/18 09:00 12/02/18 08:59 Daniel Aguilar MD Nov 11, 2018 11:06"
[2018-11-11 12:00] VITALS: BP 126/40
--- NOTE | 2018-11-11 12:22 | General Progress Note ---
Assessment/Plan Problem List: (1) Anxiety disorder ICD Codes: F41.9 - Anxiety disorder, unspecified SNOMED: 819233977 (2) Poor appetite ICD Codes: R63.0 - Anorexia SNOMED: 65300048 Status: stable Assessment/Plan Remeron 30mg qhs provided ro/st Subjective Neurologic/Psychiatric: Reports: anxiety, depressed Allergies: Coded Allergies: No Known Allergies (Unverified , 04/11/18) Subjective the pt refused labs this am still has insomnia Objective Last 24 Hour Vital Signs Date Time Temp Pulse Resp B/P (MAP) Pulse Ox O2 Delivery O2 Flow Rate FiO2 11/11/18 12:08 98.1 11/11/18 10:09 Nasal Cannula 2.0 11/11/18 08:25 98.1 90 18 110/50 (70) 95 11/11/18 07:36 91 11/11/18 04:00 89 11/11/18 04:00 98.1 90 18 139/56 (83) 95 11/11/18 00:00 98.7 99 22 111/46 (67) 95 11/11/18 00:00 98 11/10/18 21:00 Nasal Cannula 2.0 11/10/18 20:37 98.1 106 21 139/56 (83) 99 11/10/18 20:14 98 Nasal Cannula 2.0 28 11/10/18 20:14 Nasal Cannula 2.0 28 11/10/18 20:00 98 11/10/18 16:00 98.3 93 20 137/73 (94) 97 11/10/18 16:00 90 Intake and Output 11/10/18 11/11/18 19:00 07:00 Intake Total 100 ml Output Total 0 ml Balance 100 ml Intake Oral 100 ml Output Urine Total 0 ml Stool Total 0 ml Laboratory Tests 11/11/18 09:00: White Blood Count 4.6L, Red Blood Count 2.81L, Hemoglobin 8.2L, Hematocrit 27.6L , Mean Corpuscular Volume 98, Mean Corpuscular Hemoglobin 29.1, Mean Corpuscular Hemoglobin Concent 29.6L, Red Cell Distribution Width 14.6, Platelet Count 118L, Mean Platelet Volume 7.0, Neutrophils (%) (Auto) 50.2, Lymphocytes (%) (Auto) 39.1, Monocytes (%) (Auto) 4.5, Eosinophils (%) (Auto) 3.6H, Basophils (%) (Auto) 2.7H, Sodium Level 142, Potassium Level 3.7, Chloride Level 109H, Carbon Dioxide Level 29, Anion Gap 4L, Blood Urea Nitrogen 15, Creatinine 2.6H, Estimat Glomerular Filtration Rate 20.3, Glucose Level 88, Calcium Level 7.6L, Total Bilirubin 0.6, Aspartate Amino Transf (AST/SGOT) 16, Alanine Aminotransferase (ALT/SGPT) < 6L, Alkaline Phosphatase 554H, Pro-B-Type Natriuretic Peptide > 06985P, Total Protein 5.8L, Albumin 1.0L, Globulin 4.8, Albumin/Globulin Ratio 0.2L 11/11/18 10:20: Random Vancomycin Level 22.2 Height (Feet): 5 Height (Inches): 6.00 Weight (Pounds): 160 General Appearance: no apparent distress, alert, thin Neurologic: oriented x 3, responsive, depressed affect Rose Durant MD Nov 11, 2018 12:22
[2018-11-11 16:00] VITALS: BP 136/42
[2018-11-11] MEDS: D5NS 1,000 ML IV SCH (17:16)
[2018-11-11 20:00] VITALS: BP 123/78
[2018-11-11] MEDS ORDERED: Morphine Sulfate 2mg/ml Inj IVP SCH (21:00)
[2018-11-11] MEDS: Atorvastatin 20mg tab ORAL SCH (21:01)
[2018-11-11] MEDS: DULoxetine 30mg cap ORAL SCH (21:01)
[2018-11-11] MEDS: Dyna-Hex 2% Top Sol 2oz TOPIC SCH (21:32)
[2018-11-12] VITALS: BP 109/56
--- NOTE | 2018-11-12 02:01 | Progress Note ---
DATE: 11/11/2018 SUBJECTIVE: The patient is refusing medications and foods. She is awaiting a detention placement. OBJECTIVE: VITAL SIGNS: Vitals are stable. The patient is afebrile. LUNGS: Clear. CARDIAC: Regular. ABDOMEN: Soft. No edema. PICC line and PermCath ____. IMPRESSION: 1. Right upper extremity abscess with cellulitis. 2. Toe gangrene. 3. Osteomyelitis of the heels. 4. End-stage renal disease, on hemodialysis. 5. Type 2 diabetes mellitus. PLAN: 1. Hemodialysis with ultrafiltration. 2. Intravenous antimicrobials. 3. Skin care. 4. Wound care. 5. Insulin titration. Rodriguez Barrios M.D. DR: YENNI JOB#: [id number] CC:
[2018-11-12] MEDS: Morphine Sulfate 2mg/ml Inj IVP PRN ×3 (02:51→21:49)
[2018-11-12 04:00] VITALS: BP 116/67
[2018-11-12] MEDS: Calcium Acetate 667mg Tab ORAL SCH ×4 (06:11→16:30)
[2018-11-12] MEDS: Heparin 5000 units/ml inj SUBQ SCH ×3 (06:12→21:54)
[2018-11-12] MEDS: NovoLOG Insulin Flexpen SUBQ SCH ×3 (06:30→16:30)
[2018-11-12 08:00] VITALS: BP 117/52
[2018-11-12] MEDS: Zinc Sulfate 220mg cap ORAL SCH ×2 (08:08→09:00)
[2018-11-12] MEDS: Dakin's 0.125% Soln (Quarter Strength) 16oz TOPIC SCH (08:09)
[2018-11-12] MEDS: Ascorbic Acid 500mg tab ORAL SCH ×2 (08:09→09:00)
--- NOTE | 2018-11-12 08:25 | Nephrology Progress Note ---
Assessment/Plan Assessment/Plan A/P 1) ESRD- HD TTS 2) Sepsis/Cellulitis- Abx 3) Anemia of CKD- on EPO 3 x week 4) Sacral Wounds- per wound care Awaiting NH placement Subjective Date patient seen: Nov 12, 2018 Time patient seen: 08:24 ROS Limited/Unobtainable: No Constitutional: Reports: malaise, weakness Allergies: Coded Allergies: No Known Allergies (Unverified , 04/11/18) Subjective Patient awaiting placement for discharge. Objective Last 24 Hour Vital Signs Date Time Temp Pulse Resp B/P (MAP) Pulse Ox O2 Delivery O2 Flow Rate FiO2 11/12/18 04:00 97.8 87 18 116/67 (83) 11/12/18 00:00 99.1 96 16 109/56 (73) 11/11/18 22:41 Nasal Cannula 2.0 11/11/18 20:00 97.5 98 18 123/78 (93) 96 11/11/18 19:35 97.1 11/11/18 16:00 97.1 97 21 136/42 (73) 95 11/11/18 12:08 98.1 11/11/18 12:00 97.1 94 126/40 (68) 11/11/18 10:09 Nasal Cannula 2.0 11/11/18 08:25 98.1 90 18 110/50 (70) 95 Intake and Output 11/11/18 11/12/18 19:00 07:00 Intake Total 490 ml 350 ml Output Total 1000 ml Balance -510 ml 350 ml Intake Oral 240 ml IV Total 250 ml 350 ml Hemodialysis UF 1000 ml Laboratory Tests 11/11/18 09:00: White Blood Count 4.6L, Red Blood Count 2.81L, Hemoglobin 8.2L, Hematocrit 27.6L , Mean Corpuscular Volume 98, Mean Corpuscular Hemoglobin 29.1, Mean Corpuscular Hemoglobin Concent 29.6L, Red Cell Distribution Width 14.6, Platelet Count 118L, Mean Platelet Volume 7.0, Neutrophils (%) (Auto) 50.2, Lymphocytes (%) (Auto) 39.1, Monocytes (%) (Auto) 4.5, Eosinophils (%) (Auto) 3.6H, Basophils (%) (Auto) 2.7H, Sodium Level 142, Potassium Level 3.7, Chloride Level 109H, Carbon Dioxide Level 29, Anion Gap 4L, Blood Urea Nitrogen 15, Creatinine 2.6H, Estimat Glomerular Filtration Rate 20.3, Glucose Level 88, Calcium Level 7.6L, Total Bilirubin 0.6, Aspartate Amino Transf (AST/SGOT) 16, Alanine Aminotransferase (ALT/SGPT) < 6L, Alkaline Phosphatase 554H, Pro-B-Type Natriuretic Peptide > 23359J, Total Protein 5.8L, Albumin 1.0L, Globulin 4.8, Albumin/Globulin Ratio 0.2L 11/11/18 10:20: Random Vancomycin Level 22.2 Height (Feet): 5 Height (Inches): 6.00 Weight (Pounds): 160 General Appearance: no apparent distress, alert EENT: normal ENT inspection Neck: normal alignment, supple Cardiovascular: normal rate, regular rhythm Respiratory/Chest: lungs clear, normal breath sounds Abdomen: non tender, soft Edema: no edema noted Arm (L), no edema noted Arm (R), no edema noted Leg (L), no edema noted Leg (R), no edema noted Pedal (L), no edema noted Pedal (R), no edema noted Generalized Rajat Turner MD Nov 12, 2018 08:25
--- NOTE | 2018-11-12 11:38 | General Surgery Progress Note ---
General Surgery-Progress Note Subjective Additional Comments doing well. no acute events. comfortable. Objective Last 24 Hour Vital Signs Date Time Temp Pulse Resp B/P (MAP) Pulse Ox O2 Delivery O2 Flow Rate FiO2 11/12/18 09:00 Nasal Cannula 2.0 11/12/18 08:00 97.9 101 19 117/52 (73) 96 11/12/18 04:00 97.8 87 18 116/67 (83) 11/12/18 00:00 99.1 96 16 109/56 (73) 11/11/18 22:41 Nasal Cannula 2.0 11/11/18 20:00 97.5 98 18 123/78 (93) 96 11/11/18 19:35 97.1 11/11/18 16:00 97.1 97 21 136/42 (73) 95 11/11/18 12:08 98.1 11/11/18 12:00 97.1 94 126/40 (68) I&O Intake and Output 11/11/18 11/12/18 19:00 07:00 Intake Total 490 ml 350 ml Output Total 1000 ml Balance -510 ml 350 ml Intake Oral 240 ml IV Total 250 ml 350 ml Hemodialysis UF 1000 ml Dressing: saturated Wound: clean, dry Drains: other Cardiovascular: RSR Respiratory: decreased breath sounds Abdomen: soft, non-tender, present bowel sounds Extremities: edema, other Plan Problems: (1) Abscess of upper arm Assessment & Plan: right upper extremity Antecubital AC fossa abscess. etiology unknown. at first area of induration / cellulitis but since has opened and draining pus. leukocytosis resolved multiple other wounds but those are chronic right arm picc but more proximal to abscess and do not seem to be related US noted and small 1cm area of likely prior abscess which is draining spontaneously. drainage less today. cellulitis improving. drainage less. improving. -dressing changes TID and prn -will monitor clinically. -continue IV ABx -can transition to oral abx for course duration. -d/c planning thank you (2) Sacral decubitus ulcer, stage IV Assessment & Plan: Pt presents with multiple Full thickness and unstageable pressure injuries. Abscess that is oozing moderate amt purulent exudate L upper ext.Pt's hygiene grossly neglected. Full thickness pressure injury L hip(L)11cm x (W)26cm with scattered mixed soft necrosis and slough wound bed and along borders .Periwound dark and indurated. Small amt brownish, malodorous exudate noted.Pressure injury to L ischium (L)2cm x (W)2.4cm with 100% soft necrosis , marginal erythema along borders.Periwound with dark skin pigmentation without erythema or induration.Full thickness pressure injury R hip (L)16.5cm x (W)11cm x (D)2cm. Mixed soft necrosis and slough to wound bed with Thick layer of soft necrosis along borders .Periwound dark without induration.Inferiorly to R hip wound is second full thickness pressure injury (L)2cm x (W)5.5cm with 100% yellow slough. Sacrum black with fluctuance(L)9.7cm x (W)13.3cm. Scattered small openings that are dry noted to wound bed. Periwound is intact. Dark skin tone without erythema or induration noted to R ischium.Historical scars noted to medial aspect of R thigh. Full thickness ulcer with 100% soft necrosis noted to posterior L tibia(L)6cm x (W)2.5cm .periwound dry and intact without erythema.Dry scaling skin both feet and web spaces of metatarsals.Dry eschar noted to 1st ,2nd .4th and 5th metatarsals of L foot .Unstable eschar noted to dorsum L 3rd metatarsal. Stable dry eschar noted to L hallux(L)1.7cm x (W) 1.6cm. Stable dry eschar noted to distal /lateral L foot (L)0.5cm x (W)0.7cm. Edges and periwound are intact. Full thickness pressure injury L heel with 90% necrosis with bordering erythema and soft slough (L)6cm x (W)6.6cm. Periwound dry and boggy without erythema. Full thickness pressure injury R heel with approx 40% necrosis,60% ivory with slough ,(+) maceration along borders .minimal brownish exudate.No odor noted. Periwound boggy without erythema. Dark skin pigmentation noted to 1-5th metatarsals R foot. Stable eschar noted to R hallux (L)1.5cm x (W)1cm.periwound is dry and intact. Tx.Plan: Apply Dakin's 0.025% soaked gauze to pressure injuries R Hip,L Hip,L Ischium and Sacrum. Cover with ABD pads and secure with Tegaderm drsgs Daily and prn. Apply Betadine to wounds R and L foot wounds .Cover with ABD and wrap with Kerlix Daily and prn. Apply Betadine to wound posterior R tibia.Cover with Abd pad and wrap with Kerlix Daily and prn. Reposition at least every 2 hours or as tolerated. Air Fluidized mattress. Off-load heels with pillow. Alfred Hodges Nov 12, 2018 11:38
[2018-11-12] MEDS: D5NS 1,000 ML IV SCH (11:48)
[2018-11-12 12:00] VITALS: BP 101/67
[2018-11-12 16:00] VITALS: BP 115/84
[2018-11-12 20:00] VITALS: BP 114/79
[2018-11-12] MEDS: Dyna-Hex 2% Top Sol 2oz TOPIC SCH (20:00)
[2018-11-12] MEDS: DULoxetine 30mg cap ORAL SCH (21:52)
[2018-11-12] MEDS: Atorvastatin 20mg tab ORAL SCH (21:53)
[2018-11-12] MEDS: Epogen (for ESRD on dialysis) SUBQ SCH (21:54)
[2018-11-13] VITALS: BP 103/65
--- NOTE | 2018-11-13 01:18 | General Progress Note ---
Assessment/Plan Problem List: (1) Anxiety disorder ICD Codes: F41.9 - Anxiety disorder, unspecified SNOMED: 923337724 (2) Poor appetite ICD Codes: R63.0 - Anorexia SNOMED: [id number] Assessment/Plan Remeron 30mg qhs provided ro/st Subjective Date patient seen: Nov 12, 2018 Neurologic/Psychiatric: Reports: anxiety, depressed, emotional problems Allergies: Coded Allergies: No Known Allergies (Unverified , 04/11/18) Subjective a Objective Last 24 Hour Vital Signs Date Time Temp Pulse Resp B/P (MAP) Pulse Ox O2 Delivery O2 Flow Rate FiO2 11/13/18 00:00 98.0 101 19 103/65 (78) 11/12/18 21:00 Nasal Cannula 2.0 11/12/18 20:23 96 Nasal Cannula 2.0 28 11/12/18 20:23 Nasal Cannula 2.0 28 11/12/18 20:00 97.7 107 18 114/79 (91) 97 11/12/18 17:56 98.4 11/12/18 16:00 98.4 103 20 115/84 (94) 95 11/12/18 12:00 97.3 98 20 101/67 (78) 95 11/12/18 09:00 Nasal Cannula 2.0 11/12/18 08:00 97.9 101 19 117/52 (73) 96 11/12/18 04:00 97.8 87 18 116/67 (83) Intake and Output 11/12/18 11/13/18 19:00 07:00 Intake Total 240 ml Balance 240 ml Intake Oral 240 ml # Bowel Movements 1 1 Height (Feet): 5 Height (Inches): 6.00 Weight (Pounds): 160 Rose Durant MD Nov 13, 2018 01:18
--- NOTE | 2018-11-13 02:45 | Progress Note ---
DATE: 11/12/2018 INTERNAL MEDICINE PROGRESS NOTE SUBJECTIVE: The patient has no new complaints. Vitals are stable. She is afebrile. T-max 99.1. PHYSICAL EXAMINATION: LUNGS: Clear. CARDIAC: Regular. ABDOMEN: Soft. Wound sites have dressing in place and with no interim change. IMPRESSION: 1. End-stage renal disease. 2. Severe protein-calorie malnutrition. 3. Acute on chronic diastolic congestive heart failure. 4. Abscess. 5. Decubitus. 6. Anemia of chronic kidney disease. 7. Recovering sepsis. PLAN: 1. Wound care. 2. Antimicrobials. 3. Protein supplement. 4. Hemodialysis with ultrafiltration. 5. Epogen transfuse for further drop in hemoglobin level. Rodriguez Barrios M.D. DR: LISSETT JOB#: [id number] CC:
[2018-11-13 04:00] VITALS: BP 121/38
[2018-11-13] MEDS: Calcium Acetate 667mg Tab ORAL SCH ×4 (05:20→16:30)
[2018-11-13] MEDS: Heparin 5000 units/ml inj SUBQ SCH ×3 (05:22→22:32)
[2018-11-13] MEDS: NovoLOG Insulin Flexpen SUBQ SCH ×4 (05:30→21:00)
[2018-11-13] MEDS: D5NS 1,000 ML IV SCH (07:17)
[2018-11-13 08:00] VITALS: BP 109/49
[2018-11-13] MEDS: Ascorbic Acid 500mg tab ORAL SCH ×2 (08:06→09:00)
[2018-11-13] MEDS: Dakin's 0.125% Soln (Quarter Strength) 16oz TOPIC SCH (08:06)
[2018-11-13] MEDS: Zinc Sulfate 220mg cap ORAL SCH ×2 (08:06→09:00)
--- NOTE | 2018-11-13 10:34 | Infectious Diseases Prog Note ---
"Assessment/Plan Assessment/Plan antibiotics : iv vancomycin, zosyn A 1. right arm abscess with coag neg staph | providencia s/p rx 2. toe gangrene 3. bilateral heel osteomyelitis 4. renal failure on dialysis 5. diabetes mellitus 6. coag neg staph sepsis P 1. continue iv vancomycin 29 more days after dialysis 2. will follow up cultures Subjective ROS Limited/Unobtainable: Yes Allergies: Coded Allergies: No Known Allergies (Unverified , 04/11/18) Objective Vital Signs Last 24 Hour Vital Signs Date Time Temp Pulse Resp B/P (MAP) Pulse Ox O2 Delivery O2 Flow Rate FiO2 11/13/18 09:00 Nasal Cannula 2.0 11/13/18 08:00 98.0 89 19 109/49 (69) 96 11/13/18 04:00 98.5 98 18 121/38 (65) 11/13/18 00:00 98.0 101 19 103/65 (78) 11/12/18 21:00 Nasal Cannula 2.0 11/12/18 20:23 96 Nasal Cannula 2.0 28 11/12/18 20:23 Nasal Cannula 2.0 28 11/12/18 20:00 97.7 107 18 114/79 (91) 97 11/12/18 17:56 98.4 11/12/18 16:00 98.4 103 20 115/84 (94) 95 11/12/18 12:00 97.3 98 20 101/67 (78) 95 Height (Feet): 5 Height (Inches): 6.00 Weight (Pounds): 160 Respiratory/Chest: lungs clear Cardiovascular: normal rate, regular rhythm, no gallop/murmur Abdomen: soft, non tender Extremities: no edema, other - right subclavian Current Medications Medications (Trade) Dose Ordered Sig/Alexandru Route PRN Reason Start Time Stop Time Status Last Admin Dose Admin Acetaminophen (Tylenol) 325 mg Q6H PRN ORAL Mild Pain/Temp > 100.5 11/11/18 15:17 12/01/18 15:16 Ascorbic Acid (Vitamin C) 500 mg DAILY ORAL 11/12/18 09:00 12/02/18 08:59 11/13/18 08:06 Atorvastatin Calcium (Lipitor) 40 mg BEDTIME ORAL 11/11/18 21:00 12/01/18 20:59 11/12/18 21:53 Calcium Acetate (Phoslo) 1,334 mg TIAC ORAL 11/11/18 16:30 12/02/18 06:29 11/11/18 17:16 Chlorhexidine Gluconate (Lashae-Hex 2%) 1 applic DAILY@2000 TOPIC 11/11/18 20:00 12/03/18 19:59 11/11/18 21:32 Dextrose (Dextrose 50%) 25 ml Q30M PRN IV Hypoglycemia 11/11/18 15:30 12/01/18 19:59 11/12/18 06:26 Dextrose (Dextrose 50%) 50 ml Q30M PRN IV Hypoglycemia 11/11/18 15:30 12/01/18 19:59 Dextrose/Sodium Chloride 1,000 ml @ 50 mls/hr Q20H IV 11/11/18 15:17 12/04/18 15:16 11/12/18 11:48 Duloxetine HCl (Cymbalta) 60 mg QHS ORAL 11/11/18 21:00 12/01/18 20:59 11/12/18 21:52 Epoetin Vishal (Procrit (for ESRD on dialysis)) 7,500 units MON-WED-THU SUBQ 11/12/18 21:00 12/01/18 20:59 11/12/18 21:54 Famotidine (Pepcid) 20 mg DAILY ORAL 11/12/18 09:00 12/02/18 08:59 11/13/18 08:06 Folic Acid (Folate) 1 mg DAILY ORAL 11/12/18 09:00 12/02/18 08:59 11/13/18 08:06 Heparin Sodium (Porcine) (Heparin 5000 units/ml) 5,000 units EVERY 8 HOURS SUBQ 11/11/18 22:00 12/01/18 21:59 11/13/18 05:22 Insulin Aspart (NovoLOG) BEFORE MEALS AND HS SUBQ 11/11/18 16:30 12/01/18 20:59 Mirtazapine (Remeron) 30 mg BEDTIME ORAL 11/11/18 21:00 12/11/18 20:59 11/12/18 21:52 Morphine Sulfate (Morphine Sulfate) 2 mg Q4H PRN IVP Severe Pain (Pain Scale 7-10) 11/11/18 21:00 11/17/18 20:59 11/12/18 21:49 Ondansetron HCl (Zofran) 4 mg Q6H PRN IVP Nausea & Vomiting 11/12/18 09:30 12/12/18 09:29 11/12/18 09:36 Sodium Hypochlorite (Dakin's Quarter Strength) 1 applic DAILY TOPIC 11/12/18 09:00 12/02/18 11:29 11/13/18 08:06 Vancomycin HCl (Vanco rx to dose) 1 ea DAILY PRN MISC Per rx protocol 11/12/18 09:00 12/01/18 19:59 Zinc Sulfate (Zinc Sulfate) 220 mg DAILY ORAL 11/12/18 09:00 12/02/18 08:59 11/13/18 08:06 Arash Shafer MD Nov 13, 2018 10:34"
--- NOTE | 2018-11-13 10:45 | Nephrology Progress Note ---
Assessment/Plan Assessment/Plan A/P 1) ESRD- HD TTS while inpatient 2) Sepsis/Cellulitis- Abx 3) Anemia of CKD- on EPO 3 x week 4) Sacral Wounds- per wound care Awaiting NH placement when bed available Subjective Date patient seen: Nov 13, 2018 Time patient seen: 10:44 ROS Limited/Unobtainable: No Constitutional: Reports: malaise, weakness Allergies: Coded Allergies: No Known Allergies (Unverified , 04/11/18) Subjective Patient awaiting placement for discharge. Had HD today Objective Last 24 Hour Vital Signs Date Time Temp Pulse Resp B/P (MAP) Pulse Ox O2 Delivery O2 Flow Rate FiO2 11/13/18 09:00 Nasal Cannula 2.0 11/13/18 08:00 98.0 89 19 109/49 (69) 96 11/13/18 04:00 98.5 98 18 121/38 (65) 11/13/18 00:00 98.0 101 19 103/65 (78) 11/12/18 21:00 Nasal Cannula 2.0 11/12/18 20:23 96 Nasal Cannula 2.0 28 11/12/18 20:23 Nasal Cannula 2.0 28 11/12/18 20:00 97.7 107 18 114/79 (91) 97 11/12/18 17:56 98.4 11/12/18 16:00 98.4 103 20 115/84 (94) 95 11/12/18 12:00 97.3 98 20 101/67 (78) 95 Intake and Output 11/12/18 11/13/18 19:00 07:00 Intake Total 240 ml 240 ml Output Total 0 ml Balance 240 ml 240 ml Intake Oral 240 ml 240 ml Other 0 ml # Bowel Movements 1 1 Height (Feet): 5 Height (Inches): 6.00 Weight (Pounds): 160 General Appearance: lethargic EENT: normal ENT inspection Neck: normal alignment, supple Cardiovascular: regular rhythm Respiratory/Chest: lungs clear, normal breath sounds Abdomen: non tender, soft Edema: no edema noted Arm (L), no edema noted Arm (R), no edema noted Leg (L), no edema noted Leg (R), no edema noted Pedal (L), no edema noted Pedal (R), no edema noted Generalized Rajat Turner MD Nov 13, 2018 10:45
[2018-11-13 12:00] VITALS: BP 129/52
[2018-11-13] MEDS ORDERED: Lidocaine 1% 10mg/ml/Epi 0.005mg/ml 30ml vial INJ PRN (14:15)
[2018-11-13] MEDS ORDERED: Vancomycin 1gm/D5W 275ml IVPB ONE ×4 (15:30→16:00)
--- NOTE | 2018-11-13 15:47 | Operative Note - PDOC ---
Operative Note Operative Note Date of Operation/Procedure: Nov 13, 2018 Pre-op Diagnosis: poor peripheral venous access, ESRD on HD Procedure: left femoral central venous catheter insertion Post-op Diagnosis: same as pre-op Surgeon: octavio Anesthesia: local Specimen: none Complications: none Condition: stable Estimated Blood Loss: minimal Drains: none Implant(s) used?: No Indications for Procedure 43F with multiple medical comorbidities who is currently hospitalized for medical care and management. Had right AC fossa abscess which has since resolved. had right upper arm PICC which was considered to be compromised and removed. ESRD on HD currently without venous access requiring meds and venous access. poor peripheral access and unable to obtain peripheral access. central venous catheter recommended and indicated. consent obtained from patient Description of Procedure patient made comfortable at bedside. left groin palpated and appropriate for femoral venous access. time out performed. appropriate surgical precautions taken. left groin prepped and draped in standard surgical fashion. local anesthetic infiltrated. finder needle used to cannulate left femoral vein on first attempt. guidewire passed and needle removed. skin incision made around wire and dilator used. triple lumen central venous catheter placed over wire. wire removed and discarded. all ports flushed and aspirated venous well. sutured in place and dressings applied. patient tolerated well. Alfred Hodges Nov 13, 2018 15:47
[2018-11-13] MEDS: Morphine Sulfate 2mg/ml Inj IVP PRN ×2 (15:59→20:46)
[2018-11-13 16:00] VITALS: BP 114/64
[2018-11-13 19:52] VITALS: BP 122/53
[2018-11-13] MEDS: Dyna-Hex 2% Top Sol 2oz TOPIC SCH (20:24)
[2018-11-13] MEDS: DULoxetine 30mg cap ORAL SCH (20:45)
[2018-11-13] MEDS: Atorvastatin 20mg tab ORAL SCH (20:45)
--- NOTE | 2018-11-13 21:47 | General Progress Note ---
Assessment/Plan Problem List: (1) Anxiety disorder ICD Codes: F41.9 - Anxiety disorder, unspecified SNOMED: 023483438 (2) Poor appetite ICD Codes: R63.0 - Anorexia SNOMED: 03394194 Assessment/Plan Remeron 30mg qhs provided ro/st Subjective Neurologic/Psychiatric: Reports: anxiety, depressed, emotional problems Allergies: Coded Allergies: No Known Allergies (Unverified , 04/11/18) Subjective a Objective Last 24 Hour Vital Signs Date Time Temp Pulse Resp B/P (MAP) Pulse Ox O2 Delivery O2 Flow Rate FiO2 11/13/18 21:00 Nasal Cannula 2.0 11/13/18 19:52 98.0 98 18 122/53 (76) 93 11/13/18 16:29 98.4 11/13/18 16:00 97.9 100 19 114/64 (81) 96 11/13/18 12:00 98.4 99 19 129/52 (77) 97 11/13/18 09:00 Nasal Cannula 2.0 11/13/18 08:00 98.0 89 19 109/49 (69) 96 11/13/18 04:00 98.5 98 18 121/38 (65) 11/13/18 00:00 98.0 101 19 103/65 (78) Intake and Output 11/12/18 11/13/18 19:00 07:00 Intake Total 240 ml 240 ml Output Total 0 ml Balance 240 ml 240 ml Intake Oral 240 ml 240 ml Other 0 ml # Bowel Movements 1 1 Height (Feet): 5 Height (Inches): 6.00 Weight (Pounds): 160 General Appearance: no apparent distress, alert, cachetic Neurologic: oriented x 3, responsive, depressed affect Rose Durant MD Nov 13, 2018 21:47
[2018-11-14] VITALS (7 sets, daily range): BP systolic 113–126; BP diastolic 38–75
--- NOTE | 2018-11-14 00:45 | Progress Note ---
DATE: 11/13/2018 INTERNAL MEDICINE PROGRESS NOTE SUBJECTIVE: The patient is withdrawn with poor appetite. She is refusing medications and oral intake. There is no available peripheral access at this time. An emergent surgical evaluation was called for placement of a central line for adequate hydration and medication administration as well as antimicrobials. OBJECTIVE: VITAL SIGNS: Blood pressure 122/53, pulse 98, respiratory rate 18, and afebrile. LUNGS: Diminished breath sounds. HEART: Regular rhythm and rate. Normal S1 and S2. ABDOMEN: Soft. EXTREMITIES: Trace dependent edema. LABORATORY DATA: The patient refused labs earlier today. IMPRESSION: 1. Severe protein-calorie malnutrition. 2. Decubiti. 3. Skin wounds. 4. Acute on chronic diastolic congestive heart failure. 5. Anemia. 6. Pancytopenia. 7. Anorexia. 8. Anxiety disorder. 9. Depression. 10. End-stage renal disease. PLAN: 1. Central IV access. 2. Hydration by IV route. 3. Repeat lab studies if the patient permits. 4. Psychiatric followup appreciated. 5. Hemodialysis with ultrafiltration. Rodriguez Barrios M.D. DR: ANALIA JOB#: [id number] CC:
[2018-11-14] MEDS: D5NS 1,000 ML IV SCH ×2 (05:04→21:27)
[2018-11-14] MEDS: Calcium Acetate 667mg Tab ORAL SCH ×3 (06:04→16:30)
[2018-11-14] MEDS: Heparin 5000 units/ml inj SUBQ SCH ×3 (06:08→21:19)
[2018-11-14] MEDS: NovoLOG Insulin Flexpen SUBQ SCH ×4 (06:29→21:00)
[2018-11-14 06:33] LABS: HEMATOCRIT 25.4 % (37.0-47.0); HEMOGLOBIN 7.6 G/DL (12.0-16.0); MEAN CORPUSCULAR VOLUME 98 FL (80-99); PLATELET COUNT 204 K/UL (150-450); RED BLOOD COUNT 2.58 M/UL (4.20-5.40); RED CELL DISTRIBUTION WIDTH 15.3 % (11.6-14.8); WHITE BLOOD COUNT 8.6 K/UL (4.8-10.8)
[2018-11-14 07:07] LABS: ALANINE AMINOTRANSFERASE < 6 U/L (12-78); ALBUMIN/GLOBULIN RATIO 0.2 (1.0-2.7); ALKALINE PHOSPHATASE 354 U/L (46-116); ANION GAP 4 mmol/L (5-15); ASPARTATE AMINO TRANSFERASE 17 U/L (15-37); BILIRUBIN,TOTAL 0.6 MG/DL (0.2-1.0); BLOOD UREA NITROGEN 7 mg/dL (7-18); CALCIUM 7.7 MG/DL (8.5-10.1); CARBON DIOXIDE 30 MMOL/L (21-32); CHLORIDE 107 MMOL/L (98-107); CREATININE 2.5 MG/DL (0.55-1.30); POTASSIUM 3.9 MMOL/L (3.5-5.1); SODIUM 141 MMOL/L (136-145)
[2018-11-14 07:27] LABS: % IRON SATURATION 100 % (15-50); IRON 50 ug/dL (50-175); TOTAL IRON BINDING CAPACITY 50 ug/dL (250-450)
--- NOTE | 2018-11-14 08:05 | Nephrology Progress Note ---
Assessment/Plan Assessment/Plan A/P 1) ESRD- HD tomorrow then back to TTS 2) Sepsis/Cellulitis- Abx 3) Anemia of CKD- on EPO 3 x week . Hold if Hgb >11 4) Sacral Wounds- per wound care Awaiting NH placement when bed available Subjective Date patient seen: Nov 14, 2018 Time patient seen: 08:03 ROS Limited/Unobtainable: No Constitutional: Reports: malaise, weakness Allergies: Coded Allergies: No Known Allergies (Unverified , 04/11/18) Subjective Patient awaiting placement for discharge Objective Last 24 Hour Vital Signs Date Time Temp Pulse Resp B/P (MAP) Pulse Ox O2 Delivery O2 Flow Rate FiO2 11/14/18 04:00 97.4 99 18 120/69 (86) 95 11/14/18 00:00 98.5 91 18 126/52 (76) 94 11/13/18 21:00 Nasal Cannula 2.0 11/13/18 19:52 98.0 98 18 122/53 (76) 93 11/13/18 19:07 Nasal Cannula 2.0 28 11/13/18 19:07 99 Nasal Cannula 2.0 28 11/13/18 16:29 98.4 11/13/18 16:00 97.9 100 19 114/64 (81) 96 11/13/18 12:00 98.4 99 19 129/52 (77) 97 11/13/18 09:00 Nasal Cannula 2.0 Intake and Output 11/13/18 11/14/18 18:59 06:59 Intake Total 453.708 ml 720 ml Output Total 1000 ml Balance -546.292 ml 720 ml Intake Oral 120 ml 120 ml IV Total 333.708 ml 600 ml Hemodialysis UF 1000 ml Laboratory Tests 11/14/18 05:30: White Blood Count 8.6, Red Blood Count 2.58L, Hemoglobin 7.6L, Hematocrit 25.4L , Mean Corpuscular Volume 98, Mean Corpuscular Hemoglobin 29.3, Mean Corpuscular Hemoglobin Concent 29.8L, Red Cell Distribution Width 15.3H, Platelet Count 204, Mean Platelet Volume 6.6, Neutrophils (%) (Auto) , Lymphocytes (%) (Auto) , Monocytes (%) (Auto) , Eosinophils (%) (Auto) , Basophils (%) (Auto) , Neutrophils % (Manual) [Pending], Lymphocytes % (Manual) [Pending], Platelet Estimate [Pending], Platelet Morphology [Pending], Sodium Level 141, Potassium Level 3.9, Chloride Level 107, Carbon Dioxide Level 30, Anion Gap 4L, Blood Urea Nitrogen 7, Creatinine 2.5H, Estimat Glomerular Filtration Rate 21.2, Glucose Level 62L, Calcium Level 7.7L, Magnesium Level 1.5L, Iron Level 50, Total Iron Binding Capacity 50L, Percent Iron Saturation 100H, Unsaturated Iron Binding 0L, Total Bilirubin 0.6, Aspartate Amino Transf ( AST/SGOT) 17, Alanine Aminotransferase (ALT/SGPT) < 6L, Alkaline Phosphatase 354H, Total Protein 5.8L, Albumin 1.0L, Globulin 4.8, Albumin/Globulin Ratio 0.2L, Vitamin B12 Level 1105H, Folate 20.0, Thyroid Stimulating Hormone (TSH) 12.899H, Random Vancomycin Level 32.2 Height (Feet): 5 Height (Inches): 6.00 Weight (Pounds): 173 General Appearance: no apparent distress EENT: normal ENT inspection Neck: normal alignment, supple Cardiovascular: normal rate, regular rhythm Respiratory/Chest: lungs clear, normal breath sounds Abdomen: non tender, soft Edema: no edema noted Arm (L), no edema noted Arm (R), no edema noted Leg (L), no edema noted Leg (R), no edema noted Pedal (L), no edema noted Pedal (R), no edema noted Generalized Rajat Turner MD Nov 14, 2018 08:05
[2018-11-14] MEDS: Ascorbic Acid 500mg tab ORAL SCH ×2 (08:34→08:53)
[2018-11-14] MEDS: Zinc Sulfate 220mg cap ORAL SCH ×2 (08:34→08:54)
[2018-11-14] MEDS: Dakin's 0.125% Soln (Quarter Strength) 16oz TOPIC SCH (08:35)
[2018-11-14] MEDS ORDERED: D5NS 1000ml IV ONE (08:45)
--- NOTE | 2018-11-14 11:00 | Infectious Diseases Prog Note ---
"Assessment/Plan Assessment/Plan antibiotics : iv vancomycin A 1. right arm abscess with coag neg staph | providencia s/p rx 2. toe gangrene 3. bilateral heel osteomyelitis 4. renal failure on dialysis 5. diabetes mellitus 6. coag neg staph sepsis P 1. continue iv vancomycin 28 more days after dialysis 2. will follow up cultures Subjective ROS Limited/Unobtainable: Yes Allergies: Coded Allergies: No Known Allergies (Unverified , 04/11/18) Objective Vital Signs Last 24 Hour Vital Signs Date Time Temp Pulse Resp B/P (MAP) Pulse Ox O2 Delivery O2 Flow Rate FiO2 11/14/18 08:17 99 Nasal Cannula 2.0 28 11/14/18 08:17 Nasal Cannula 2.0 28 11/14/18 08:00 98.0 89 19 122/71 (88) 96 11/14/18 04:00 97.4 99 18 120/69 (86) 95 11/14/18 00:00 98.5 91 18 126/52 (76) 94 11/13/18 21:00 Nasal Cannula 2.0 11/13/18 19:52 98.0 98 18 122/53 (76) 93 11/13/18 19:07 Nasal Cannula 2.0 28 11/13/18 19:07 99 Nasal Cannula 2.0 28 11/13/18 16:29 98.4 11/13/18 16:00 97.9 100 19 114/64 (81) 96 11/13/18 12:00 98.4 99 19 129/52 (77) 97 Height (Feet): 5 Height (Inches): 6.00 Weight (Pounds): 173 Respiratory/Chest: lungs clear Cardiovascular: normal rate, regular rhythm, no gallop/murmur Abdomen: soft, non tender Extremities: no edema, other - right subclavian catheter Laboratory Tests Test 11/14/18 05:30 White Blood Count 8.6 K/UL (4.8-10.8) Red Blood Count 2.58 M/UL (4.20-5.40) L Hemoglobin 7.6 G/DL (12.0-16.0) L Hematocrit 25.4 % (37.0-47.0) L Mean Corpuscular Volume 98 FL (80-99) Mean Corpuscular Hemoglobin 29.3 PG (27.0-31.0) Mean Corpuscular Hemoglobin Concent 29.8 G/DL (32.0-36.0) L Red Cell Distribution Width 15.3 % (11.6-14.8) H Platelet Count 204 K/UL (150-450) Mean Platelet Volume 6.6 FL (6.5-10.1) Neutrophils (%) (Auto) % (45.0-75.0) Lymphocytes (%) (Auto) % (20.0-45.0) Monocytes (%) (Auto) % (1.0-10.0) Eosinophils (%) (Auto) % (0.0-3.0) Basophils (%) (Auto) % (0.0-2.0) Differential Total Cells Counted 100 Neutrophils % (Manual) 51 % (45-75) Lymphocytes % (Manual) 35 % (20-45) Monocytes % (Manual) 10 % (1-10) Eosinophils % (Manual) 3 % (0-3) Basophils % (Manual) 1 % (0-2) Band Neutrophils 0 % (0-8) Platelet Estimate Adequate Platelet Morphology Normal Hypochromasia 2+ Anisocytosis 1+ Schistocytes Occasional Sodium Level 141 MMOL/L (136-145) Potassium Level 3.9 MMOL/L (3.5-5.1) Chloride Level 107 MMOL/L (98-107) Carbon Dioxide Level 30 MMOL/L (21-32) Anion Gap 4 mmol/L (5-15) L Blood Urea Nitrogen 7 mg/dL (7-18) Creatinine 2.5 MG/DL (0.55-1.30) H Estimat Glomerular Filtration Rate 21.2 mL/min (>60) Glucose Level 62 MG/DL (74-106) L Calcium Level 7.7 MG/DL (8.5-10.1) L Magnesium Level 1.5 MG/DL (1.8-2.4) L Iron Level 50 ug/dL (50-175) Total Iron Binding Capacity 50 ug/dL (250-450) L Percent Iron Saturation 100 % (15-50) H Unsaturated Iron Binding 0 ug/dL (112-346) L Total Bilirubin 0.6 MG/DL (0.2-1.0) Aspartate Amino Transf (AST/SGOT) 17 U/L (15-37) Alanine Aminotransferase (ALT/SGPT) < 6 U/L (12-78) L Alkaline Phosphatase 354 U/L (46-116) H Total Protein 5.8 G/DL (6.4-8.2) L Albumin 1.0 G/DL (3.4-5.0) L Globulin 4.8 g/dL Albumin/Globulin Ratio 0.2 (1.0-2.7) L Vitamin B12 Level 1105 PG/ML (193-986) H Folate 20.0 NG/ML (8.6-58.9) Thyroid Stimulating Hormone (TSH) 12.899 uiU/mL (0.358-3.740) Random Vancomycin Level 32.2 ug/mL Current Medications Medications (Trade) Dose Ordered Sig/Alexandru Route PRN Reason Start Time Stop Time Status Last Admin Dose Admin Acetaminophen (Tylenol) 325 mg Q6H PRN ORAL Mild Pain/Temp > 100.5 11/11/18 15:17 12/01/18 15:16 Ascorbic Acid (Vitamin C) 500 mg DAILY ORAL 11/12/18 09:00 12/02/18 08:59 Atorvastatin Calcium (Lipitor) 40 mg BEDTIME ORAL 11/11/18 21:00 12/01/18 20:59 11/13/18 20:45 Calcium Acetate (Phoslo) 1,334 mg TIAC ORAL 11/11/18 16:30 12/02/18 06:29 11/14/18 06:04 Chlorhexidine Gluconate (Lashae-Hex 2%) 1 applic DAILY@2000 TOPIC 11/11/18 20:00 12/03/18 19:59 11/13/18 20:24 Dextrose (Dextrose 50%) 25 ml Q30M PRN IV Hypoglycemia 11/11/18 15:30 12/01/18 19:59 11/14/18 05:16 Dextrose (Dextrose 50%) 50 ml Q30M PRN IV Hypoglycemia 11/11/18 15:30 12/01/18 19:59 Dextrose/Sodium Chloride 1,000 ml @ 50 mls/hr Q20H IV 11/11/18 15:17 12/04/18 15:16 11/14/18 05:04 Duloxetine HCl (Cymbalta) 60 mg QHS ORAL 11/11/18 21:00 12/01/18 20:59 11/13/18 20:45 Epoetin Vishal (Procrit (for ESRD on dialysis)) 7,500 units MON-WED-THU SUBQ 11/12/18 21:00 12/01/18 20:59 11/12/18 21:54 Famotidine (Pepcid) 20 mg DAILY ORAL 11/12/18 09:00 12/02/18 08:59 Folic Acid (Folate) 1 mg DAILY ORAL 11/12/18 09:00 12/02/18 08:59 Heparin Sodium (Porcine) (Heparin 5000 units/ml) 5,000 units EVERY 8 HOURS SUBQ 11/11/18 22:00 12/01/18 21:59 11/14/18 06:08 Insulin Aspart (NovoLOG) BEFORE MEALS AND HS SUBQ 11/11/18 16:30 12/01/18 20:59 Levothyroxine Sodium (Synthroid) 75 mcg DAILY@0630 ORAL 11/14/18 07:45 12/14/18 07:44 Mirtazapine (Remeron) 30 mg BEDTIME ORAL 11/11/18 21:00 12/11/18 20:59 11/13/18 20:45 Morphine Sulfate (Morphine Sulfate) 2 mg Q4H PRN IVP Severe Pain (Pain Scale 7-10) 11/11/18 21:00 11/17/18 20:59 11/13/18 20:46 Ondansetron HCl (Zofran) 4 mg Q6H PRN IVP Nausea & Vomiting 11/12/18 09:30 12/12/18 09:29 11/12/18 09:36 Sodium Hypochlorite (Dakin's Quarter Strength) 1 applic DAILY TOPIC 11/12/18 09:00 12/02/18 11:29 11/14/18 08:35 Vancomycin HCl (Vanco rx to dose) 1 ea DAILY PRN MISC Per rx protocol 11/12/18 09:00 12/01/18 19:59 Zinc Sulfate (Zinc Sulfate) 220 mg DAILY ORAL 11/12/18 09:00 12/02/18 08:59 Arash Shafer MD Nov 14, 2018 11:00"
[2018-11-14] MEDS: Morphine Sulfate 2mg/ml Inj IVP PRN ×2 (17:13→21:27)
[2018-11-14] MEDS: Atorvastatin 20mg tab ORAL SCH (21:18)
[2018-11-14] MEDS: Dyna-Hex 2% Top Sol 2oz TOPIC SCH (21:18)
[2018-11-14] MEDS: DULoxetine 30mg cap ORAL SCH (21:18)
--- NOTE | 2018-11-14 22:41 | General Progress Note ---
Assessment/Plan Problem List: (1) Anxiety disorder ICD Codes: F41.9 - Anxiety disorder, unspecified SNOMED: 719343722 (2) Poor appetite ICD Codes: R63.0 - Anorexia SNOMED: 72265294 (3) MDD (major depressive disorder) ICD Codes: F32.9 - Major depressive disorder, single episode, unspecified SNOMED: 987326542 Status: stable Assessment/Plan Remeron 30mg qhs provided ro/st Subjective Neurologic/Psychiatric: Reports: anxiety, depressed, emotional problems Allergies: Coded Allergies: No Known Allergies (Unverified , 04/11/18) Subjective the pt is resisting care and treatment when i spoke to her she denied Objective Last 24 Hour Vital Signs Date Time Temp Pulse Resp B/P (MAP) Pulse Ox O2 Delivery O2 Flow Rate FiO2 11/14/18 20:00 97.3 97 18 115/75 (88) 96 11/14/18 16:00 97.0 96 18 113/71 (85) 98 11/14/18 12:00 98.2 91 20 117/69 (85) 97 11/14/18 09:00 Nasal Cannula 2.0 11/14/18 08:17 99 Nasal Cannula 2.0 28 11/14/18 08:17 Nasal Cannula 2.0 28 11/14/18 08:00 98.0 89 19 122/71 (88) 96 11/14/18 04:00 97.4 99 18 120/69 (86) 95 11/14/18 00:00 98.5 91 18 126/52 (76) 94 Intake and Output 11/13/18 11/14/18 19:00 07:00 Intake Total 503.708 ml 720 ml Output Total 1000 ml Balance -496.292 ml 720 ml Intake Oral 120 ml 120 ml IV Total 383.708 ml 600 ml Hemodialysis UF 1000 ml Laboratory Tests 11/14/18 05:30: White Blood Count 8.6, Red Blood Count 2.58L, Hemoglobin 7.6L, Hematocrit 25.4L , Mean Corpuscular Volume 98, Mean Corpuscular Hemoglobin 29.3, Mean Corpuscular Hemoglobin Concent 29.8L, Red Cell Distribution Width 15.3H, Platelet Count 204, Mean Platelet Volume 6.6, Neutrophils (%) (Auto) , Lymphocytes (%) (Auto) , Monocytes (%) (Auto) , Eosinophils (%) (Auto) , Basophils (%) (Auto) , Differential Total Cells Counted 100, Neutrophils % ( Manual) 51, Lymphocytes % (Manual) 35, Monocytes % (Manual) 10, Eosinophils % ( Manual) 3, Basophils % (Manual) 1, Band Neutrophils 0, Platelet Estimate Adequate, Platelet Morphology Normal, Hypochromasia 2+, Anisocytosis 1+, Schistocytes Occasional, Sodium Level 141, Potassium Level 3.9, Chloride Level 107, Carbon Dioxide Level 30, Anion Gap 4L, Blood Urea Nitrogen 7, Creatinine 2.5H, Estimat Glomerular Filtration Rate 21.2, Glucose Level 62L, Calcium Level 7.7L, Magnesium Level 1.5L, Iron Level 50, Total Iron Binding Capacity 50L, Percent Iron Saturation 100H, Unsaturated Iron Binding 0L, Total Bilirubin 0.6, Aspartate Amino Transf (AST/SGOT) 17, Alanine Aminotransferase (ALT/SGPT) < 6L, Alkaline Phosphatase 354H, Total Protein 5.8L, Albumin 1.0L, Globulin 4.8, Albumin/Globulin Ratio 0.2L, Vitamin B12 Level 1105H, Folate 20.0, Thyroid Stimulating Hormone (TSH) 12.899H, Random Vancomycin Level 32.2 Height (Feet): 5 Height (Inches): 6.00 Weight (Pounds): 173 General Appearance: alert Neurologic: oriented x 3, responsive, depressed affect Rose Durant MD Nov 14, 2018 22:41
[2018-11-15] MEDS ORDERED: Lidocaine 1% Plain 30 ml INJ ONE ×2 (02:30→08:00)
--- NOTE | 2018-11-15 03:45 | Progress Note ---
DATE: 11/14/2018 INTERNAL MEDICINE PROGRESS NOTE SUBJECTIVE: The patient had a central access placed yesterday in the groin area. A PICC line will be required as replacement as the groin area can be infected easily. The patient continues on wound care. DISCHARGE DISPOSITION: Still unclear. OBJECTIVE: VITAL SIGNS: Blood pressure 115/75, pulse 97, respiratory rate 18, and afebrile. LUNGS: Clear. CARDIAC: Regular. No new murmur. ABDOMEN: Soft. EXTREMITIES: No edema. SKIN: Wound site is unchanged. LABORATORY DATA: White count 8.6 and hemoglobin 7.6. BUN 27, creatinine 2.5, and albumin 1. B12 and folate levels normal. TSH is 12.89. Magnesium is 1.5. IMPRESSION: 1. Decubiti wound. 2. End-stage renal disease. 3. Severe anemia. 4. Hypomagnesemia. 5. Severe protein calorie malnutrition. 6. Hypothyroidism. PLAN: 1. Continue antimicrobials wound care. 2. PICC line to be arranged. 3. Central access in the groin to be subsequently removed. 4. Intravenous magnesium, thyroid replacement. 5. Transfuse packed red blood cell with next hemodialysis. Rodriguez Barrios M.D. DR: YENNI JOB#: [id number] CC:
[2018-11-15 04:00] VITALS: BP 100/79
[2018-11-15] MEDS: Heparin 5000 units/ml inj SUBQ SCH ×3 (06:03→21:26)
[2018-11-15] MEDS: Morphine Sulfate 2mg/ml Inj IVP PRN ×3 (06:15→22:59)
[2018-11-15] MEDS: Calcium Acetate 667mg Tab ORAL SCH ×3 (06:30→16:30)
[2018-11-15] MEDS: NovoLOG Insulin Flexpen SUBQ SCH ×4 (06:30→21:00)
[2018-11-15 08:00] VITALS: BP 103/53
[2018-11-15] MEDS ORDERED: Heparin 2000 units/Ns 1000ml INJ ONE (08:00)
[2018-11-15] MEDS: Zinc Sulfate 220mg cap ORAL SCH (08:33)
[2018-11-15] MEDS: Ascorbic Acid 500mg tab ORAL SCH (08:33)
[2018-11-15] MEDS: Dakin's 0.125% Soln (Quarter Strength) 16oz TOPIC SCH (08:33)
--- NOTE | 2018-11-15 11:36 | General Surgery Progress Note ---
General Surgery-Progress Note Subjective Procedure Performed left femoral central venous catheter insertion Additional Comments doing well. line in place. site clean. right AC clean Objective Last 24 Hour Vital Signs Date Time Temp Pulse Resp B/P (MAP) Pulse Ox O2 Delivery O2 Flow Rate FiO2 11/15/18 09:00 Nasal Cannula 2.0 11/15/18 08:00 97.4 80 18 103/53 (70) 97 11/15/18 04:00 97.3 87 18 100/79 (86) 96 11/14/18 21:00 Nasal Cannula 2.0 11/14/18 20:00 97.3 97 18 115/75 (88) 96 11/14/18 16:00 97.0 96 18 113/71 (85) 98 11/14/18 12:00 98.2 91 20 117/69 (85) 97 I&O Intake and Output 11/14/18 11/15/18 18:59 06:59 Intake Total 650 ml 600 ml Balance 650 ml 600 ml IV Total 650 ml 600 ml # Voids 1 Dressing: saturated Wound: clean Drains: other Cardiovascular: RSR Respiratory: clear Abdomen: soft, flat, non-tender, present bowel sounds Extremities: other Plan Problems: (1) Abscess of upper arm Assessment & Plan: right upper extremity Antecubital AC fossa abscess. etiology unknown. at first area of induration / cellulitis but since has opened and draining pus. leukocytosis resolved multiple other wounds but those are chronic right arm picc but more proximal to abscess and do not seem to be related US noted and small 1cm area of likely prior abscess which is draining spontaneously. drainage less today. cellulitis improving. drainage less. improving. -dressing changes TID and prn -will monitor clinically. -continue IV ABx -can transition to oral abx for course duration. -d/c planning thank you (2) Sacral decubitus ulcer, stage IV Assessment & Plan: Pt presents with multiple Full thickness and unstageable pressure injuries. Abscess that is oozing moderate amt purulent exudate L upper ext.Pt's hygiene grossly neglected. Full thickness pressure injury L hip(L)11cm x (W)26cm with scattered mixed soft necrosis and slough wound bed and along borders .Periwound dark and indurated. Small amt brownish, malodorous exudate noted.Pressure injury to L ischium (L)2cm x (W)2.4cm with 100% soft necrosis , marginal erythema along borders.Periwound with dark skin pigmentation without erythema or induration.Full thickness pressure injury R hip (L)16.5cm x (W)11cm x (D)2cm. Mixed soft necrosis and slough to wound bed with Thick layer of soft necrosis along borders .Periwound dark without induration.Inferiorly to R hip wound is second full thickness pressure injury (L)2cm x (W)5.5cm with 100% yellow slough. Sacrum black with fluctuance(L)9.7cm x (W)13.3cm. Scattered small openings that are dry noted to wound bed. Periwound is intact. Dark skin tone without erythema or induration noted to R ischium.Historical scars noted to medial aspect of R thigh. Full thickness ulcer with 100% soft necrosis noted to posterior L tibia(L)6cm x (W)2.5cm .periwound dry and intact without erythema.Dry scaling skin both feet and web spaces of metatarsals.Dry eschar noted to 1st ,2nd .4th and 5th metatarsals of L foot .Unstable eschar noted to dorsum L 3rd metatarsal. Stable dry eschar noted to L hallux(L)1.7cm x (W) 1.6cm. Stable dry eschar noted to distal /lateral L foot (L)0.5cm x (W)0.7cm. Edges and periwound are intact. Full thickness pressure injury L heel with 90% necrosis with bordering erythema and soft slough (L)6cm x (W)6.6cm. Periwound dry and boggy without erythema. Full thickness pressure injury R heel with approx 40% necrosis,60% ivory with slough ,(+) maceration along borders .minimal brownish exudate.No odor noted. Periwound boggy without erythema. Dark skin pigmentation noted to 1-5th metatarsals R foot. Stable eschar noted to R hallux (L)1.5cm x (W)1cm.periwound is dry and intact. Tx.Plan: Apply Dakin's 0.025% soaked gauze to pressure injuries R Hip,L Hip,L Ischium and Sacrum. Cover with ABD pads and secure with Tegaderm drsgs Daily and prn. Apply Betadine to wounds R and L foot wounds .Cover with ABD and wrap with Kerlix Daily and prn. Apply Betadine to wound posterior R tibia.Cover with Abd pad and wrap with Kerlix Daily and prn. Reposition at least every 2 hours or as tolerated. Air Fluidized mattress. Off-load heels with pillow. (3) Renal failure Assessment & Plan: s/p Right femoral temp HD line site clean. doing well Alfred Hodges Nov 15, 2018 11:36
[2018-11-15 12:00] VITALS: BP 110/70
--- NOTE | 2018-11-15 12:35 | Nephrology Progress Note ---
Assessment/Plan Assessment/Plan A/P 1) ESRD- Had Hd today 2) Sepsis/Cellulitis- Abx 3) Anemia of CKD- on EPO 3 x week . 4) Sacral Wounds- per wound care Awaiting NH placement when bed available Subjective Date patient seen: Nov 15, 2018 Time patient seen: 12:33 ROS Limited/Unobtainable: No Constitutional: Reports: malaise, weakness Allergies: Coded Allergies: No Known Allergies (Unverified , 04/11/18) Subjective Patient awaiting placement Objective Last 24 Hour Vital Signs Date Time Temp Pulse Resp B/P (MAP) Pulse Ox O2 Delivery O2 Flow Rate FiO2 11/15/18 09:00 Nasal Cannula 2.0 11/15/18 08:00 97.4 80 18 103/53 (70) 97 11/15/18 04:00 97.3 87 18 100/79 (86) 96 11/14/18 21:00 Nasal Cannula 2.0 11/14/18 20:00 97.3 97 18 115/75 (88) 96 11/14/18 16:00 97.0 96 18 113/71 (85) 98 Intake and Output 11/14/18 11/15/18 18:59 06:59 Intake Total 650 ml 600 ml Balance 650 ml 600 ml IV Total 650 ml 600 ml # Voids 1 Height (Feet): 5 Height (Inches): 6.00 Weight (Pounds): 173 General Appearance: no apparent distress, alert EENT: normal ENT inspection Neck: normal alignment, supple Cardiovascular: normal rate, regular rhythm Respiratory/Chest: lungs clear, normal breath sounds Abdomen: non tender, soft Edema: no edema noted Arm (L), no edema noted Arm (R), no edema noted Leg (L), no edema noted Leg (R), no edema noted Pedal (L), no edema noted Pedal (R), no edema noted Generalized Rajat Turner MD Nov 15, 2018 12:35
--- NOTE | 2018-11-15 13:24 | General Progress Note ---
Assessment/Plan Problem List: (1) Abscess ICD Codes: L02.91 - Cutaneous abscess, unspecified SNOMED: 823650286 (2) Sepsis ICD Codes: A41.9 - Sepsis, unspecified organism SNOMED: 41708410 (3) Sacral pressure ulcer ICD Codes: L89.159 - Pressure ulcer of sacral region, unspecified stage SNOMED: 034615170 (4) Sacral decubitus ulcer, stage IV ICD Codes: L89.154 - Pressure ulcer of sacral region, stage 4 SNOMED: 734400622, 892912926 (5) Acute osteomyelitis of right calcaneus ICD Codes: M86.171 - Other acute osteomyelitis, right ankle and foot SNOMED: 353674805 Status: stable Assessment/Plan iv abx wound care HD per renal dvt/stress ulcer prophylaxis encourage po transfuse message left with . await call back dc planning Subjective ROS Limited/Unobtainable: No Constitutional: Reports: malaise, weakness HEENT: Reports: no symptoms Cardiovascular: Reports: no symptoms Respiratory: Reports: no symptoms Gastrointestinal/Abdominal: Reports: poor appetite Genitourinary: Reports: no symptoms Neurologic/Psychiatric: Reports: depressed Endocrine: Reports: no symptoms Hematologic/Lymphatic: Reports: anemia Allergies: Coded Allergies: No Known Allergies (Unverified , 04/11/18) All Systems: reviewed and negative except above Subjective no events. stable. still with poor po intake.refused ngt/gt decrease h/h noted. message left with regarding transfusion no signs of bleeding Objective Last 24 Hour Vital Signs Date Time Temp Pulse Resp B/P (MAP) Pulse Ox O2 Delivery O2 Flow Rate FiO2 11/15/18 12:00 97.8 77 18 110/70 (83) 98 11/15/18 09:00 Nasal Cannula 2.0 11/15/18 08:00 97.4 80 18 103/53 (70) 97 11/15/18 04:00 97.3 87 18 100/79 (86) 96 11/14/18 21:00 Nasal Cannula 2.0 11/14/18 20:00 97.3 97 18 115/75 (88) 96 11/14/18 16:00 97.0 96 18 113/71 (85) 98 Intake and Output 11/14/18 11/15/18 18:59 06:59 Intake Total 650 ml 600 ml Balance 650 ml 600 ml IV Total 650 ml 600 ml # Voids 1 Height (Feet): 5 Height (Inches): 6.00 Weight (Pounds): 173 Objective General Appearance: cachetic Neck: supple Cardiovascular: regular rhythm Respiratory/Chest: lungs clear Abdomen: normal bowel sounds, non tender, soft, no organomegaly Edema: no edema noted Arm (L), no edema noted Arm (R), no edema noted Leg (L), no edema noted Leg (R), no edema noted Pedal (L), no edema noted Pedal (R), no edema noted Generalized Skin: other - massive christiano hip wound and christiano foot Holden Quiroz MD Nov 15, 2018 13:24
--- NOTE | 2018-11-15 14:38 | General Progress Note ---
Assessment/Plan Problem List: (1) Anxiety disorder ICD Codes: F41.9 - Anxiety disorder, unspecified SNOMED: 388239891 (2) Poor appetite ICD Codes: R63.0 - Anorexia SNOMED: 98692913 (3) MDD (major depressive disorder) ICD Codes: F32.9 - Major depressive disorder, single episode, unspecified SNOMED: 658027821 Status: stable Assessment/Plan Remeron 30mg qhs provided ro/st Subjective Neurologic/Psychiatric: Reports: anxiety, depressed Allergies: Coded Allergies: No Known Allergies (Unverified , 04/11/18) Subjective the pt is resisting care and treatment Objective Last 24 Hour Vital Signs Date Time Temp Pulse Resp B/P (MAP) Pulse Ox O2 Delivery O2 Flow Rate FiO2 11/15/18 12:00 97.8 77 18 110/70 (83) 98 11/15/18 09:00 Nasal Cannula 2.0 11/15/18 08:00 97.4 80 18 103/53 (70) 97 11/15/18 04:00 97.3 87 18 100/79 (86) 96 11/14/18 21:00 Nasal Cannula 2.0 11/14/18 20:00 97.3 97 18 115/75 (88) 96 11/14/18 16:00 97.0 96 18 113/71 (85) 98 Intake and Output 11/14/18 11/15/18 18:59 06:59 Intake Total 650 ml 600 ml Balance 650 ml 600 ml IV Total 650 ml 600 ml # Voids 1 Height (Feet): 5 Height (Inches): 6.00 Weight (Pounds): 173 General Appearance: no apparent distress, alert Neurologic: oriented x 3, responsive, depressed affect Rose Durant MD Nov 15, 2018 14:38
[2018-11-15 16:00] VITALS: BP_SYST 115; BP_DIAS 31; BP_DIAS 81
--- NOTE | 2018-11-15 16:06 | Infectious Diseases Prog Note ---
"Assessment/Plan Assessment/Plan antibiotics : iv vancomycin A 1. right arm abscess with coag neg staph | providencia s/p rx 2. toe gangrene 3. bilateral heel osteomyelitis 4. renal failure on dialysis 5. diabetes mellitus 6. coag neg staph sepsis P 1. continue iv vancomycin 27 more days after dialysis 2. will follow up cultures Subjective Constitutional: Denies: fever, chills Respiratory: Denies: shortness of breath, dry cough Gastrointestinal/Abdominal: Denies: nausea, vomiting, diarrhea Musculoskeletal: Denies: pain Allergies: Coded Allergies: No Known Allergies (Unverified , 04/11/18) Objective Vital Signs Last 24 Hour Vital Signs Date Time Temp Pulse Resp B/P (MAP) Pulse Ox O2 Delivery O2 Flow Rate FiO2 11/15/18 12:00 97.8 77 18 110/70 (83) 98 11/15/18 09:00 Nasal Cannula 2.0 11/15/18 08:00 97.4 80 18 103/53 (70) 97 11/15/18 04:00 97.3 87 18 100/79 (86) 96 11/14/18 21:00 Nasal Cannula 2.0 11/14/18 20:00 97.3 97 18 115/75 (88) 96 Height (Feet): 5 Height (Inches): 6.00 Weight (Pounds): 173 Respiratory/Chest: lungs clear Cardiovascular: normal rate, regular rhythm, no gallop/murmur Abdomen: soft, non tender Extremities: no edema, other - right subclavian catheter, left groin catheter Current Medications Medications (Trade) Dose Ordered Sig/Alexandru Route PRN Reason Start Time Stop Time Status Last Admin Dose Admin Acetaminophen (Tylenol) 325 mg Q6H PRN ORAL Mild Pain/Temp > 100.5 11/11/18 15:17 12/01/18 15:16 Ascorbic Acid (Vitamin C) 500 mg DAILY ORAL 11/12/18 09:00 12/02/18 08:59 11/15/18 08:33 Atorvastatin Calcium (Lipitor) 40 mg BEDTIME ORAL 11/11/18 21:00 12/01/18 20:59 11/14/18 21:18 Calcium Acetate (Phoslo) 1,334 mg TIAC ORAL 11/11/18 16:30 12/02/18 06:29 11/14/18 06:04 Chlorhexidine Gluconate (Lashae-Hex 2%) 1 applic DAILY@2000 TOPIC 11/15/18 20:00 12/15/18 19:59 Dextrose (Dextrose 50%) 25 ml Q30M PRN IV Hypoglycemia 11/11/18 15:30 12/01/18 19:59 11/15/18 06:11 Dextrose (Dextrose 50%) 50 ml Q30M PRN IV Hypoglycemia 11/11/18 15:30 12/01/18 19:59 11/14/18 16:57 Dextrose/Sodium Chloride 1,000 ml @ 50 mls/hr Q20H IV 11/11/18 15:17 12/04/18 15:16 11/14/18 21:27 Duloxetine HCl (Cymbalta) 60 mg QHS ORAL 11/11/18 21:00 12/01/18 20:59 11/14/18 21:18 Epoetin Vishal (Procrit (for ESRD on dialysis)) 7,500 units THU-THU-THU SUBQ 11/12/18 21:00 12/01/18 20:59 11/12/18 21:54 Famotidine (Pepcid) 20 mg DAILY ORAL 11/12/18 09:00 12/02/18 08:59 11/15/18 08:33 Folic Acid (Folate) 1 mg DAILY ORAL 11/12/18 09:00 12/02/18 08:59 11/15/18 08:33 Heparin Sodium (Porcine) (Heparin 5000 units/ml) 5,000 units EVERY 8 HOURS SUBQ 11/11/18 22:00 12/01/18 21:59 11/15/18 13:21 Insulin Aspart (NovoLOG) BEFORE MEALS AND HS SUBQ 11/11/18 16:30 12/01/18 20:59 Levothyroxine Sodium (Synthroid) 75 mcg DAILY@0630 ORAL 11/14/18 07:45 12/14/18 07:44 Mirtazapine (Remeron) 30 mg BEDTIME ORAL 11/11/18 21:00 12/11/18 20:59 11/14/18 21:18 Morphine Sulfate (Morphine Sulfate) 2 mg Q4H PRN IVP Severe Pain (Pain Scale 7-10) 11/11/18 21:00 11/17/18 20:59 11/15/18 06:15 Ondansetron HCl (Zofran) 4 mg Q6H PRN IVP Nausea & Vomiting 11/12/18 09:30 12/12/18 09:29 11/12/18 09:36 Sodium Hypochlorite (Dakin's Quarter Strength) 1 applic DAILY TOPIC 11/12/18 09:00 12/02/18 11:29 11/15/18 08:33 Vancomycin HCl (Vanco rx to dose) 1 ea DAILY PRN MISC Per rx protocol 11/12/18 09:00 12/01/18 19:59 Zinc Sulfate (Zinc Sulfate) 220 mg DAILY ORAL 11/12/18 09:00 12/02/18 08:59 11/15/18 08:33 Arash Shafer MD Nov 15, 2018 16:06"
[2018-11-15 20:00] VITALS: BP 138/53
[2018-11-15] MEDS: Dyna-Hex 2% Top Sol 2oz TOPIC SCH (20:33)
[2018-11-15] MEDS: D5NS 1,000 ML IV SCH (20:33)
[2018-11-15] MEDS: DULoxetine 30mg cap ORAL SCH (21:00)
[2018-11-15] MEDS: Atorvastatin 20mg tab ORAL SCH (21:00)
[2018-11-15] MEDS: Epogen (for ESRD on dialysis) SUBQ SCH (21:48)
--- NOTE | 2018-11-15 23:45 | Progress Note ---
DATE: 11/15/2018 CARDIOLOGY PROGRESS NOTE SUBJECTIVE: No new complaints. Intake is poor. The patient has a central access in the femoral region; a PICC line could not be placed today. PHYSICAL EXAMINATION: VITAL SIGNS: Blood pressure 110/70, pulse 77, and respiratory rate 16. LUNGS: With coarse breath sounds. CARDIAC: Regular rhythm and rate. Normal S1 and S2. ABDOMEN: Soft. Trace edema. Femoral line site clean and dry. IMPRESSION: Ultrasound reveals possible right forearm abscess. PLAN: 1. Drainage if abscess present. 2. PICC line to be placed. 3. Discontinue central line in the groin once PICC placed. 4. Replace potassium and magnesium as needed. 5. Encourage nutritional intake. Rodriguez Barrios M.D. DR: SHANTE JOB#: [id number] CC: DEBBY
[2018-11-16] VITALS (7 sets, daily range): BP systolic 105–158; BP diastolic 51–90
[2018-11-16] MEDS: Heparin 5000 units/ml inj SUBQ SCH ×3 (05:32→22:00)
[2018-11-16] MEDS: Morphine Sulfate 2mg/ml Inj IVP PRN ×3 (05:52→20:05)
[2018-11-16] MEDS: NovoLOG Insulin Flexpen SUBQ SCH ×4 (06:29→21:00)
[2018-11-16] MEDS: Calcium Acetate 667mg Tab ORAL SCH ×3 (06:29→16:07)
--- NOTE | 2018-11-16 08:16 | General Progress Note ---
Assessment/Plan Problem List: (1) Abscess ICD Codes: L02.91 - Cutaneous abscess, unspecified SNOMED: 230595506 (2) Sepsis ICD Codes: A41.9 - Sepsis, unspecified organism SNOMED: 43184043 (3) Sacral pressure ulcer ICD Codes: L89.159 - Pressure ulcer of sacral region, unspecified stage SNOMED: 353172584 (4) Sacral decubitus ulcer, stage IV ICD Codes: L89.154 - Pressure ulcer of sacral region, stage 4 SNOMED: 532616084, 947542965 (5) Acute osteomyelitis of right calcaneus ICD Codes: M86.171 - Other acute osteomyelitis, right ankle and foot SNOMED: 449744798 Status: stable, deteriorating Assessment/Plan iv abx wound care HD per renal dvt/stress ulcer prophylaxis encourage po transfuse as needed refusing any type of enteral feed add megace Subjective ROS Limited/Unobtainable: No Constitutional: Reports: malaise, weakness HEENT: Reports: no symptoms Cardiovascular: Reports: no symptoms Respiratory: Reports: no symptoms Gastrointestinal/Abdominal: Reports: poor appetite Genitourinary: Reports: no symptoms Neurologic/Psychiatric: Reports: no symptoms Endocrine: Reports: no symptoms Hematologic/Lymphatic: Reports: anemia Allergies: Coded Allergies: No Known Allergies (Unverified , 04/11/18) All Systems: reviewed and negative except above Subjective no events. stable. still with poor po intake.refused ngt/gt decrease h/h noted. s/p 1 unit remains hypoglycemic at times due to poor po intake. Objective Last 24 Hour Vital Signs Date Time Temp Pulse Resp B/P (MAP) Pulse Ox O2 Delivery O2 Flow Rate FiO2 11/16/18 07:57 98 Nasal Cannula 2.0 28 11/16/18 07:57 Nasal Cannula 2.0 28 11/16/18 05:49 96.0 91 18 158/70 (99) 97 11/16/18 04:00 96.0 91 18 110/54 (72) 97 11/16/18 00:00 96.9 89 19 105/51 (69) 96 11/15/18 21:00 Nasal Cannula 2.0 11/15/18 20:00 96.8 91 19 138/53 (81) 98 11/15/18 16:00 97.2 92 16 115/81 (92) 98 11/15/18 12:00 97.8 77 18 110/70 (83) 98 11/15/18 09:00 Nasal Cannula 2.0 Intake and Output 11/15/18 11/16/18 19:00 07:00 Intake Total 750 ml 460 ml Output Total 1000 ml 0 ml Balance -250 ml 460 ml Intake Oral 60 ml IV Total 450 ml 400 ml Blood Product 300 ml Output Urine Total 0 ml Hemodialysis UF 1000 ml Height (Feet): 5 Height (Inches): 6.00 Weight (Pounds): 187 Objective General Appearance: cachetic Neck: supple Cardiovascular: regular rhythm Respiratory/Chest: lungs clear Abdomen: normal bowel sounds, non tender, soft, no organomegaly Edema: no edema noted Arm (L), no edema noted Arm (R), no edema noted Leg (L), no edema noted Leg (R), no edema noted Pedal (L), no edema noted Pedal (R), no edema noted Generalized Skin: other - massive christiano hip wound and christiano foot Holden Quiroz MD Nov 16, 2018 08:16
[2018-11-16] MEDS: Ascorbic Acid 500mg tab ORAL SCH (09:00)
[2018-11-16] MEDS: Dakin's 0.125% Soln (Quarter Strength) 16oz TOPIC SCH (09:00)
[2018-11-16] MEDS: Zinc Sulfate 220mg cap ORAL SCH (09:00)
[2018-11-16] MEDS: Megace 400mg/10ml Susp ORAL SCH ×2 (09:00→17:23)
[2018-11-16] MEDS: D5NS 1,000 ML IV SCH (16:04)
[2018-11-16] MEDS: Dyna-Hex 2% Top Sol 2oz TOPIC SCH (20:04)
[2018-11-16] MEDS: DULoxetine 30mg cap ORAL SCH (21:00)
[2018-11-16] MEDS: Atorvastatin 20mg tab ORAL SCH (21:00)
--- NOTE | 2018-11-16 22:00 | Progress Note ---
DATE: 11/16/2018 CARDIOLOGY PROGRESS NOTE SUBJECTIVE: The patient is refusing ___ tube feeds. Her oral intake is very poor. She has had episodes of hypoglycemia. She has been started on IV fluids. OBJECTIVE: VITAL SIGNS: Blood pressure 110/54 to 158/70, heart rate 90, and respiratory rate 18. LUNGS: Clear. CARDIAC: Regular. ABDOMEN: Soft. Central line site in the groin without drainage. EXTREMITIES: No edema. PLAN: 1. Await PICC line placement. 2. Continue hydration as able. 3. Encourage oral intake. 4. Wound care. Rodriguez Barrios M.D. DR: ANLAIA JOB#: [id number] CC:
[2018-11-17] MEDS: Morphine Sulfate 2mg/ml Inj IVP PRN ×5 (00:03→23:08)
[2018-11-17 00:13] VITALS: BP 132/33
[2018-11-17 04:00] VITALS: BP 120/62
[2018-11-17] MEDS: Heparin 5000 units/ml inj SUBQ SCH ×3 (06:00→21:11)
[2018-11-17] MEDS: Calcium Acetate 667mg Tab ORAL SCH ×3 (06:21→16:30)
[2018-11-17] MEDS: NovoLOG Insulin Flexpen SUBQ SCH ×4 (06:23→21:00)
[2018-11-17 07:03] LABS: ANION GAP 7 mmol/L (5-15); BLOOD UREA NITROGEN 9 mg/dL (7-18); CALCIUM 7.8 MG/DL (8.5-10.1); CARBON DIOXIDE 27 MMOL/L (21-32); CHLORIDE 107 MMOL/L (98-107); CREATININE 2.7 MG/DL (0.55-1.30); POTASSIUM 3.7 MMOL/L (3.5-5.1); SODIUM 141 MMOL/L (136-145)
[2018-11-17] MEDS ORDERED: Lidocaine 1% Plain 30 ml INJ PRN (08:30)
[2018-11-17] MEDS ORDERED: Heparin 2000 units/Ns 1000ml INJ PRN (08:30)
[2018-11-17] MEDS: Ascorbic Acid 500mg tab ORAL SCH (09:00)
[2018-11-17] MEDS: Dakin's 0.125% Soln (Quarter Strength) 16oz TOPIC SCH (09:00)
[2018-11-17] MEDS: Megace 400mg/10ml Susp ORAL SCH ×2 (09:00→17:31)
[2018-11-17] MEDS: Zinc Sulfate 220mg cap ORAL SCH (09:00)
--- NOTE | 2018-11-17 09:47 | General Progress Note ---
Assessment/Plan Problem List: (1) Abscess ICD Codes: L02.91 - Cutaneous abscess, unspecified SNOMED: 739204158 (2) Sepsis ICD Codes: A41.9 - Sepsis, unspecified organism SNOMED: 87365851 (3) Sacral pressure ulcer ICD Codes: L89.159 - Pressure ulcer of sacral region, unspecified stage SNOMED: 114793130 (4) Sacral decubitus ulcer, stage IV ICD Codes: L89.154 - Pressure ulcer of sacral region, stage 4 SNOMED: 156721722, 403037706 (5) Acute osteomyelitis of right calcaneus ICD Codes: M86.171 - Other acute osteomyelitis, right ankle and foot SNOMED: 702714405 Status: stable, not improved Assessment/Plan iv abx wound care HD per renal dvt/stress ulcer prophylaxis encourage po transfuse as needed refusing any type of enteral feed- ngt or gt offererd megace Subjective ROS Limited/Unobtainable: No Constitutional: Reports: malaise, weakness HEENT: Reports: no symptoms Cardiovascular: Reports: no symptoms Respiratory: Reports: no symptoms Gastrointestinal/Abdominal: Reports: no symptoms Genitourinary: Reports: no symptoms Neurologic/Psychiatric: Reports: depressed Endocrine: Reports: no symptoms Hematologic/Lymphatic: Reports: anemia Allergies: Coded Allergies: No Known Allergies (Unverified , 04/11/18) All Systems: reviewed and negative except above Subjective no events. stable. po intake remains poor Objective Last 24 Hour Vital Signs Date Time Temp Pulse Resp B/P (MAP) Pulse Ox O2 Delivery O2 Flow Rate FiO2 11/17/18 05:17 98.1 11/17/18 04:00 97.7 90 18 120/62 (81) 96 11/17/18 00:13 98.1 86 19 132/33 (66) 95 11/16/18 20:19 Nasal Cannula 2.0 11/16/18 20:17 97.9 61 19 150/54 (86) 96 11/16/18 20:05 Nasal Cannula 2.0 28 11/16/18 20:05 97 Nasal Cannula 2.0 28 11/16/18 16:00 98.6 91 19 123/67 (85) 99 11/16/18 11:53 97.2 96 19 137/90 (106) 96 Intake and Output 11/16/18 11/17/18 19:00 07:00 Intake Total 550 ml 600 ml Output Total 0 ml Balance 550 ml 600 ml IV Total 550 ml 600 ml Output Urine Total 0 ml Laboratory Tests 11/17/18 05:34: Sodium Level 141, Potassium Level 3.7, Chloride Level 107, Carbon Dioxide Level 27, Anion Gap 7, Blood Urea Nitrogen 9, Creatinine 2.7H, Estimat Glomerular Filtration Rate 19.4, Glucose Level 63L, Calcium Level 7.8L, Random Vancomycin Level 23.9 Height (Feet): 5 Height (Inches): 6.00 Weight (Pounds): 138 Objective General Appearance: cachetic Neck: supple Cardiovascular: regular rhythm Respiratory/Chest: lungs clear Abdomen: normal bowel sounds, non tender, soft, no organomegaly Edema: no edema noted Arm (L), no edema noted Arm (R), no edema noted Leg (L), no edema noted Leg (R), no edema noted Pedal (L), no edema noted Pedal (R), no edema noted Generalized Skin: other - massive christiano hip wound and christiano foot Holden Quiroz MD Nov 17, 2018 09:47
--- NOTE | 2018-11-17 10:53 | Nephrology Progress Note ---
Assessment/Plan Assessment/Plan A/P 1) ESRD- HD back to TTS 2) Sepsis/Cellulitis- Abx. PICC pending 3) Anemia of CKD- on EPO 3 x week and PRN Bld Tx 4) Sacral Wounds- per wound care Awaiting NH placement Subjective Date patient seen: Nov 17, 2018 Time patient seen: 10:52 ROS Limited/Unobtainable: No Constitutional: Reports: malaise, weakness Allergies: Coded Allergies: No Known Allergies (Unverified , 04/11/18) Subjective Patient awaiting placement and PICC Objective Last 24 Hour Vital Signs Date Time Temp Pulse Resp B/P (MAP) Pulse Ox O2 Delivery O2 Flow Rate FiO2 11/17/18 09:00 Nasal Cannula 2.0 11/17/18 05:17 98.1 11/17/18 04:00 97.7 90 18 120/62 (81) 96 11/17/18 00:13 98.1 86 19 132/33 (66) 95 11/16/18 20:19 Nasal Cannula 2.0 11/16/18 20:17 97.9 61 19 150/54 (86) 96 11/16/18 20:05 Nasal Cannula 2.0 28 11/16/18 20:05 97 Nasal Cannula 2.0 28 11/16/18 16:00 98.6 91 19 123/67 (85) 99 11/16/18 11:53 97.2 96 19 137/90 (106) 96 Intake and Output 11/16/18 11/17/18 19:00 07:00 Intake Total 550 ml 600 ml Output Total 0 ml Balance 550 ml 600 ml IV Total 550 ml 600 ml Output Urine Total 0 ml Laboratory Tests 11/17/18 05:34: Sodium Level 141, Potassium Level 3.7, Chloride Level 107, Carbon Dioxide Level 27, Anion Gap 7, Blood Urea Nitrogen 9, Creatinine 2.7H, Estimat Glomerular Filtration Rate 19.4, Glucose Level 63L, Calcium Level 7.8L, Random Vancomycin Level 23.9 Height (Feet): 5 Height (Inches): 6.00 Weight (Pounds): 138 General Appearance: no apparent distress, lethargic EENT: normal ENT inspection Neck: normal alignment, supple Cardiovascular: normal rate, regular rhythm Respiratory/Chest: lungs clear, normal breath sounds Abdomen: non tender, soft Edema: no edema noted Arm (L), no edema noted Arm (R), no edema noted Leg (L), no edema noted Leg (R), no edema noted Pedal (L), no edema noted Pedal (R), no edema noted Generalized Rajat Turner MD Nov 17, 2018 10:53
--- NOTE | 2018-11-17 11:01 | Infectious Diseases Prog Note ---
"Assessment/Plan Assessment/Plan antibiotics : iv vancomycin A 1. right arm abscess with coag neg staph | [facility] s/p rx 2. toe gangrene 3. bilateral heel osteomyelitis 4. renal failure on dialysis 5. diabetes mellitus 6. coag neg staph sepsis P 1. continue iv vancomycin 25 more days after dialysis 2. will follow up cultures Subjective ROS Limited/Unobtainable: Yes Allergies: Coded Allergies: No Known Allergies (Unverified , 04/11/18) Objective Vital Signs Last 24 Hour Vital Signs Date Time Temp Pulse Resp B/P (MAP) Pulse Ox O2 Delivery O2 Flow Rate FiO2 11/17/18 09:00 Nasal Cannula 2.0 11/17/18 05:17 98.1 11/17/18 04:00 97.7 90 18 120/62 (81) 96 11/17/18 00:13 98.1 86 19 132/33 (66) 95 11/16/18 20:19 Nasal Cannula 2.0 11/16/18 20:17 97.9 61 19 150/54 (86) 96 11/16/18 20:05 Nasal Cannula 2.0 28 11/16/18 20:05 97 Nasal Cannula 2.0 28 11/16/18 16:00 98.6 91 19 123/67 (85) 99 11/16/18 11:53 97.2 96 19 137/90 (106) 96 Height (Feet): 5 Height (Inches): 6.00 Weight (Pounds): 138 Respiratory/Chest: lungs clear Cardiovascular: normal rate, regular rhythm, no gallop/murmur Abdomen: soft, non tender Extremities: no edema, other - right subclavian catheter, left groin catheter Laboratory Tests Test 11/17/18 05:34 Sodium Level 141 MMOL/L (136-145) Potassium Level 3.7 MMOL/L (3.5-5.1) Chloride Level 107 MMOL/L (98-107) Carbon Dioxide Level 27 MMOL/L (21-32) Anion Gap 7 mmol/L (5-15) Blood Urea Nitrogen 9 mg/dL (7-18) Creatinine 2.7 MG/DL (0.55-1.30) H Estimat Glomerular Filtration Rate 19.4 mL/min (>60) Glucose Level 63 MG/DL (74-106) L Calcium Level 7.8 MG/DL (8.5-10.1) L Random Vancomycin Level 23.9 ug/mL Current Medications Medications (Trade) Dose Ordered Sig/Alexandru Route PRN Reason Start Time Stop Time Status Last Admin Dose Admin Acetaminophen (Tylenol) 325 mg Q6H PRN ORAL Mild Pain/Temp > 100.5 11/11/18 15:17 12/01/18 15:16 Ascorbic Acid (Vitamin C) 500 mg DAILY ORAL 11/12/18 09:00 12/02/18 08:59 11/15/18 08:33 Atorvastatin Calcium (Lipitor) 40 mg BEDTIME ORAL 11/11/18 21:00 12/01/18 20:59 11/14/18 21:18 Calcium Acetate (Phoslo) 1,334 mg TIAC ORAL 11/11/18 16:30 12/02/18 06:29 11/14/18 06:04 Chlorhexidine Gluconate (Lashae-Hex 2%) 1 applic DAILY@2000 TOPIC 11/15/18 20:00 12/15/18 19:59 11/16/18 20:04 Dextrose (Dextrose 50%) 25 ml Q30M PRN IV Hypoglycemia 11/11/18 15:30 12/01/18 19:59 11/16/18 16:23 Dextrose (Dextrose 50%) 50 ml Q30M PRN IV Hypoglycemia 11/11/18 15:30 12/01/18 19:59 11/17/18 06:27 Dextrose/Sodium Chloride 1,000 ml @ 50 mls/hr Q20H IV 11/11/18 15:17 12/04/18 15:16 11/16/18 16:04 Duloxetine HCl (Cymbalta) 60 mg QHS ORAL 11/11/18 21:00 12/01/18 20:59 11/14/18 21:18 Epoetin Vishal (Procrit (for ESRD on dialysis)) 7,500 units MON-WED-THU SUBQ 11/12/18 21:00 12/01/18 20:59 11/15/18 21:48 Famotidine (Pepcid) 20 mg DAILY ORAL 11/12/18 09:00 12/02/18 08:59 11/15/18 08:33 Folic Acid (Folate) 1 mg DAILY ORAL 11/12/18 09:00 12/02/18 08:59 11/15/18 08:33 Heparin Sodium (Porcine) (Heparin 5000 units/ml) 5,000 units EVERY 8 HOURS SUBQ 11/11/18 22:00 12/01/18 21:59 11/16/18 13:15 Heparin Sodium/ Sodium Chloride (Heparin 2000 units/Ns 1000ml premix) 2,000 unit ONCE PRN INJ PICC PLACEMENT 11/17/18 08:30 11/18/18 23:59 Insulin Aspart (NovoLOG) BEFORE MEALS AND HS SUBQ 11/11/18 16:30 12/01/18 20:59 Levothyroxine Sodium (Synthroid) 75 mcg DAILY@0630 ORAL 11/14/18 07:45 12/14/18 07:44 Lidocaine HCl (Xylocaine 1% 30ml) 30 ml ONCE PRN INJ PICC PLACEMENT 11/17/18 08:30 11/18/18 23:59 Megestrol Acetate (Megace) 400 mg TWICE A DAY ORAL 11/16/18 09:00 12/16/18 08:59 Mirtazapine (Remeron) 30 mg BEDTIME ORAL 11/11/18 21:00 12/11/18 20:59 11/14/18 21:18 Morphine Sulfate (Morphine Sulfate) 2 mg Q4H PRN IVP Severe Pain (Pain Scale 7-10) 11/11/18 21:00 11/17/18 20:59 11/17/18 04:47 Ondansetron HCl (Zofran) 4 mg Q6H PRN IVP Nausea & Vomiting 11/12/18 09:30 12/12/18 09:29 11/12/18 09:36 Sodium Hypochlorite (Dakin's Quarter Strength) 1 applic DAILY TOPIC 11/12/18 09:00 12/02/18 11:29 11/15/18 08:33 Vancomycin HCl (Vanco rx to dose) 1 ea DAILY PRN MISC Per rx protocol 11/12/18 09:00 12/01/18 19:59 Zinc Sulfate (Zinc Sulfate) 220 mg DAILY ORAL 11/12/18 09:00 12/02/18 08:59 11/15/18 08:33 Arash Shafer MD Nov 17, 2018 11:01"
[2018-11-17 12:00] VITALS: BP 142/47
[2018-11-17] MEDS: D5NS 1,000 ML IV SCH (12:30)
[2018-11-17] MEDS ORDERED: Tubing IV Blood Pump IV ONE (15:20)
[2018-11-17] MEDS ORDERED: D5NS 1000ml IV ONE (15:21)
[2018-11-17 16:00] VITALS: BP 142/71
[2018-11-17 20:28] VITALS: BP 123/82
[2018-11-17] MEDS: Atorvastatin 20mg tab ORAL SCH (20:36)
[2018-11-17] MEDS: DULoxetine 30mg cap ORAL SCH (20:37)
[2018-11-17] MEDS: Dyna-Hex 2% Top Sol 2oz TOPIC SCH (21:08)
[2018-11-17] MEDS: Epogen (for ESRD on dialysis) SUBQ SCH (21:16)
[2018-11-18 00:41] VITALS: BP 119/87
--- NOTE | 2018-11-18 02:00 | Progress Note ---
DATE: 11/17/2018 CARDIOLOGY PROGRESS NOTE SUBJECTIVE: Poor intake, refusing antral feedings, and status post transfusion. OBJECTIVE: VITAL SIGNS: Blood pressure 120/62, pulse 90, and respiratory rate 18. LUNGS: Diminished breath sounds. CARDIAC: Regular rhythm and rate. Normal S1 and S2. ABDOMEN: Soft. EXTREMITIES: Trace edema. LABORATORY DATA: BUN 9, creatinine 2.7, and potassium 3.7. IMPRESSION: 1. End-stage renal disease. 2. Wound infection, decubiti. 3. Anemia of chronic kidney disease. 4. Gangrenous toe with osteomyelitis. PLAN: 1. Antimicrobials.s 2. Fluid. 3. Wound care. 4. Nutritional support. 5. Hemodialysis with ultrafiltration. 6. Transfuse for hemoglobin below . Rodriguez Barrios M.D. DR: BRIDGET JOB#: [id number] CC:
[2018-11-18] MEDS: Morphine Sulfate 2mg/ml Inj IVP PRN ×2 (03:18→07:56)
[2018-11-18 04:00] VITALS: BP 126/86
[2018-11-18] MEDS: Heparin 5000 units/ml inj SUBQ SCH ×3 (05:11→20:59)
[2018-11-18] MEDS: NovoLOG Insulin Flexpen SUBQ SCH ×4 (05:57→20:59)
[2018-11-18] MEDS: Calcium Acetate 667mg Tab ORAL SCH ×3 (06:06→16:30)
[2018-11-18] MEDS: D5NS 1,000 ML IV SCH (06:13)
--- NOTE | 2018-11-18 07:49 | General Progress Note ---
Assessment/Plan Problem List: (1) Abscess ICD Codes: L02.91 - Cutaneous abscess, unspecified SNOMED: 745368860 (2) Sepsis ICD Codes: A41.9 - Sepsis, unspecified organism SNOMED: 82297780 (3) Sacral pressure ulcer ICD Codes: L89.159 - Pressure ulcer of sacral region, unspecified stage SNOMED: 508372765 (4) Sacral decubitus ulcer, stage IV ICD Codes: L89.154 - Pressure ulcer of sacral region, stage 4 SNOMED: 639382273, 457553331 (5) Acute osteomyelitis of right calcaneus ICD Codes: M86.171 - Other acute osteomyelitis, right ankle and foot SNOMED: 273836187 Status: stable, progressing Assessment/Plan iv abx wound care HD per renal dvt/stress ulcer prophylaxis encourage po transfuse as needed refusing any type of enteral feed- ngt or gt offererd megace trial Subjective ROS Limited/Unobtainable: No Constitutional: Reports: malaise, weakness HEENT: Reports: no symptoms Cardiovascular: Reports: no symptoms Respiratory: Reports: no symptoms Gastrointestinal/Abdominal: Reports: no symptoms Genitourinary: Reports: no symptoms Neurologic/Psychiatric: Reports: no symptoms Endocrine: Reports: no symptoms Hematologic/Lymphatic: Reports: no symptoms Allergies: Coded Allergies: No Known Allergies (Unverified , 04/11/18) All Systems: reviewed and negative except above Subjective no events. stable. po intake remains poor. running low bs. d/w pt feeding tube. absolutely refusing. Objective Last 24 Hour Vital Signs Date Time Temp Pulse Resp B/P (MAP) Pulse Ox O2 Delivery O2 Flow Rate FiO2 11/18/18 04:00 97.9 94 18 126/86 (99) 100 11/18/18 03:48 98.4 11/18/18 00:41 98.4 63 18 119/87 (98) 100 11/17/18 21:00 Nasal Cannula 2.0 11/17/18 20:28 98.4 102 18 123/82 (96) 94 11/17/18 16:00 99.6 93 18 142/71 (94) 96 11/17/18 12:00 99.7 96 18 142/47 (78) 95 11/17/18 09:00 Nasal Cannula 2.0 Intake and Output 11/17/18 11/18/18 19:00 07:00 Intake Total 50 ml 600 ml Output Total 0 ml Balance 50 ml 600 ml Intake Oral 50 ml IV Total 50 ml 550 ml Output Urine Total 0 ml Height (Feet): 5 Height (Inches): 6.00 Weight (Pounds): 189 Objective General Appearance: cachetic Neck: supple Cardiovascular: regular rhythm Respiratory/Chest: lungs clear Abdomen: normal bowel sounds, non tender, soft, no organomegaly Edema: no edema noted Arm (L), no edema noted Arm (R), no edema noted Leg (L), no edema noted Leg (R), no edema noted Pedal (L), no edema noted Pedal (R), no edema noted Generalized Skin: other - massive christiano hip wound and christiano foot Holden Quiroz MD Nov 18, 2018 07:49
[2018-11-18 08:00] VITALS: BP 127/50
[2018-11-18] MEDS ORDERED: Heparin 2000 units/Ns 1000ml INJ PRN (08:00)
[2018-11-18] MEDS ORDERED: Lidocaine 1% Plain 30 ml INJ PRN (08:00)
[2018-11-18] MEDS ORDERED: Lidocaine 2% 20mg/ml/EPI 0.01mg/ml 20ml INJ SCH (08:59)
[2018-11-18] MEDS: Ascorbic Acid 500mg tab ORAL SCH (09:00)
[2018-11-18] MEDS: Dakin's 0.125% Soln (Quarter Strength) 16oz TOPIC SCH (09:00)
[2018-11-18] MEDS: Zinc Sulfate 220mg cap ORAL SCH (09:00)
[2018-11-18] MEDS: Megace 400mg/10ml Susp ORAL SCH ×2 (09:00→17:19)
--- NOTE | 2018-11-18 12:09 | Diagnostic Imaging Report ---
Indications: Needs long-term dialysis access Technique: Total sterile technique, including sterile probe cover and sterile gel, sterile gloves, hand hygiene, hat, mask,, sterile gown, large sterile drape, and preparation with 2% chlorhexidine utilized. Local anesthesia with 1% lidocaine. Under real-time ultrasound guidance, puncture left internal jugular vein using 21-gauge micropuncture needle, passage 0.018 guidewire, exchange for 4 [place]ovan micropuncture introducer. The guidewire was used to measure the appropriate catheter length, and was removed. Catheter was cut to length. The sheath was left in place. The subcutaneous tract was then anesthetized with 1% lidocaine. A chest dermatotomy was made . The tunneling device was used to pull a 6 [place] double-lumen catheter through the subcutaneous tunnel to the neck dermatotomy. A guidewire was passed through the neck introducer into the inferior vena cava followed by the introduction of a peel-away sheath. The catheter was then introduced into the sheath, the peel-away sheath was removed. Digital radiograph documents satisfactory catheter tip position in the cavoatrial junction, no kinking at the insertion site. Both catheter ports aspirated and flushed. Catheter was fixed to the skin. Patient tolerated procedure well without immediate complication. Total fluoroscopy time 22.8 minutes. Total fluoroscopy dose 2.35 mGy Findings: Completion radiograph documents satisfactory position and course of the catheter, catheter tip at the cavoatrial junction. Impression: Successful placement of left transjugular tunneled PICC, as described above. Catheter cleared for immediate use.
--- NOTE | 2018-11-18 12:35 | Infectious Diseases Prog Note ---
"Assessment/Plan Assessment/Plan A: 1. right arm abscess with coag neg staph | [facility] treated 2. toe gangrene 3. bilateral heel osteomyelitis 4. renal failure on dialysis 5. diabetes mellitus 6. coag neg staph sepsis P 1. continue iv vancomycin X 24 days 2. Waiting for placement Subjective ROS Limited/Unobtainable: Yes Constitutional: Reports: no symptoms Allergies: Coded Allergies: No Known Allergies (Unverified , 04/11/18) Objective Vital Signs Last 24 Hour Vital Signs Date Time Temp Pulse Resp B/P (MAP) Pulse Ox O2 Delivery O2 Flow Rate FiO2 11/18/18 11:54 Nasal Cannula 2.0 11/18/18 09:00 Nasal Cannula 2.0 11/18/18 08:00 97.6 59 19 127/50 (75) 97 11/18/18 04:00 97.9 94 18 126/86 (99) 100 11/18/18 03:48 98.4 11/18/18 00:41 98.4 63 18 119/87 (98) 100 11/17/18 21:00 Nasal Cannula 2.0 11/17/18 20:28 98.4 102 18 123/82 (96) 94 11/17/18 16:00 99.6 93 18 142/71 (94) 96 Height (Feet): 5 Height (Inches): 6.00 Weight (Pounds): 189 General Appearance: no acute distress HEENT: mucous membranes moist Respiratory/Chest: lungs clear Cardiovascular: normal rate, other - right Permacath Abdomen: soft, non tender Extremities: no edema Skin: ulcers Neurologic/Psychiatric: other - sleeping Current Medications Medications (Trade) Dose Ordered Sig/Alexandru Route PRN Reason Start Time Stop Time Status Last Admin Dose Admin Acetaminophen (Tylenol) 325 mg Q6H PRN ORAL Mild Pain/Temp > 100.5 11/11/18 15:17 12/01/18 15:16 Ascorbic Acid (Vitamin C) 500 mg DAILY ORAL 11/12/18 09:00 12/02/18 08:59 11/15/18 08:33 Atorvastatin Calcium (Lipitor) 40 mg BEDTIME ORAL 11/11/18 21:00 12/01/18 20:59 11/17/18 20:36 Calcium Acetate (Phoslo) 1,334 mg TIAC ORAL 11/11/18 16:30 12/02/18 06:29 11/14/18 06:04 Chlorhexidine Gluconate (Lashae-Hex 2%) 1 applic DAILY@2000 TOPIC 11/15/18 20:00 12/15/18 19:59 11/17/18 21:08 Dextrose (Dextrose 50%) 25 ml Q30M PRN IV Hypoglycemia 11/11/18 15:30 12/01/18 19:59 11/18/18 05:59 Dextrose (Dextrose 50%) 50 ml Q30M PRN IV Hypoglycemia 11/11/18 15:30 12/01/18 19:59 11/18/18 07:08 Dextrose/Sodium Chloride 1,000 ml @ 50 mls/hr Q20H IV 11/11/18 15:17 12/04/18 15:16 11/18/18 06:13 Duloxetine HCl (Cymbalta) 60 mg QHS ORAL 11/11/18 21:00 12/01/18 20:59 11/17/18 20:37 Epoetin Vishal (Procrit (for ESRD on dialysis)) 7,500 units THU-THU-THU SUBQ 11/12/18 21:00 12/01/18 20:59 11/17/18 21:16 Famotidine (Pepcid) 20 mg DAILY ORAL 11/12/18 09:00 12/02/18 08:59 11/15/18 08:33 Folic Acid (Folate) 1 mg DAILY ORAL 11/12/18 09:00 12/02/18 08:59 11/15/18 08:33 Heparin Sodium (Porcine) (Heparin 5000 units/ml) 5,000 units EVERY 8 HOURS SUBQ 11/11/18 22:00 12/01/18 21:59 11/17/18 21:11 Heparin Sodium/ Sodium Chloride (Heparin 2000 units/Ns 1000ml premix) 2,000 unit ONCE PRN INJ picc line placement 11/18/18 08:00 11/19/18 07:59 Insulin Aspart (NovoLOG) BEFORE MEALS AND HS SUBQ 11/11/18 16:30 12/01/18 20:59 Levothyroxine Sodium (Synthroid) 75 mcg DAILY@0630 ORAL 11/14/18 07:45 12/14/18 07:44 Lidocaine HCl (Xylocaine 1% 30ml) 30 ml ONCE PRN INJ picc line placement 11/18/18 08:00 11/19/18 07:59 Lidocaine/ Epinephrine (Xylocaine 2%/ Epi MPF) 50 ml ONCE INJ 11/18/18 08:59 11/18/18 23:59 Megestrol Acetate (Megace) 400 mg TWICE A DAY ORAL 11/16/18 09:00 12/16/18 08:59 Mirtazapine (Remeron) 30 mg BEDTIME ORAL 11/11/18 21:00 12/11/18 20:59 11/17/18 20:36 Morphine Sulfate (Morphine Sulfate) 2 mg Q4H PRN IVP Severe Pain (Pain Scale 7-10) 11/17/18 22:30 11/24/18 22:29 11/18/18 07:56 Ondansetron HCl (Zofran) 4 mg Q6H PRN IVP Nausea & Vomiting 11/12/18 09:30 12/12/18 09:29 11/12/18 09:36 Sodium Hypochlorite (Dakin's Quarter Strength) 1 applic DAILY TOPIC 11/12/18 09:00 12/02/18 11:29 11/15/18 08:33 Vancomycin HCl (Vanco rx to dose) 1 ea DAILY PRN MISC Per rx protocol 11/12/18 09:00 12/01/18 19:59 Zinc Sulfate (Zinc Sulfate) 220 mg DAILY ORAL 11/12/18 09:00 12/02/18 08:59 11/15/18 08:33 Daniel Aguilar MD Nov 18, 2018 12:35"
[2018-11-18] MEDS: Morphine Sulfate 4mg/ml Inj (IV/IM USE ONLY) IVP PRN ×2 (14:17→20:50)
[2018-11-18 16:00] VITALS: BP 160/97
--- NOTE | 2018-11-18 16:53 | Diagnostic Imaging Report ---
APPROVED REPORT CPT Code: 65224 Present Symptoms Comments: BILATERAL LEGS PAIN. BILATERAL: Imaging reveals a patent deep venous system bilaterally. There is no evidence of thrombus within the femoral, popliteal or tibial segments. The greater saphenous veins are also within normal limits. Doppler indicates normal spontaneous flow within these segments.
[2018-11-18] MEDS ORDERED: Vancomycin 1gm/D5W 275ml IVPB SCH ×2 (17:00)
[2018-11-18] MEDS ORDERED: D5NS 1000ml IV ONE (17:20)
[2018-11-18 17:57] VITALS: BP 134/55
[2018-11-18 20:00] VITALS: BP 125/84
[2018-11-18] MEDS: Dyna-Hex 2% Top Sol 2oz TOPIC SCH (20:44)
[2018-11-18] MEDS: DULoxetine 30mg cap ORAL SCH (20:49)
[2018-11-18] MEDS: Atorvastatin 20mg tab ORAL SCH (20:49)
[2018-11-19] VITALS: BP 130/81
[2018-11-19] MEDS: D5NS 1,000 ML IV SCH ×2 (03:12→23:20)
[2018-11-19] MEDS: Morphine Sulfate 4mg/ml Inj (IV/IM USE ONLY) IVP PRN ×3 (03:20→20:41)
[2018-11-19 04:00] VITALS: BP 120/70
[2018-11-19] MEDS: NovoLOG Insulin Flexpen SUBQ SCH ×4 (05:46→21:00)
[2018-11-19] MEDS: Heparin 5000 units/ml inj SUBQ SCH ×3 (05:46→21:57)
[2018-11-19] MEDS: Calcium Acetate 667mg Tab ORAL SCH ×3 (05:46→16:07)
[2018-11-19 08:00] VITALS: BP 121/54
--- NOTE | 2018-11-19 08:56 | General Progress Note ---
Assessment/Plan Problem List: (1) Abscess ICD Codes: L02.91 - Cutaneous abscess, unspecified SNOMED: 672089545 (2) Sepsis ICD Codes: A41.9 - Sepsis, unspecified organism SNOMED: 30079314 (3) Sacral pressure ulcer ICD Codes: L89.159 - Pressure ulcer of sacral region, unspecified stage SNOMED: 507504048 (4) Sacral decubitus ulcer, stage IV ICD Codes: L89.154 - Pressure ulcer of sacral region, stage 4 SNOMED: 502663677, 740614959 (5) Acute osteomyelitis of right calcaneus ICD Codes: M86.171 - Other acute osteomyelitis, right ankle and foot SNOMED: 409224611 Status: stable, progressing Assessment/Plan iv abx wound care HD per renal dvt/stress ulcer prophylaxis encourage po transfuse as needed refusing any type of enteral feed- ngt or gt offererd megace trial dc planning Subjective ROS Limited/Unobtainable: No Constitutional: Reports: malaise, weakness HEENT: Reports: no symptoms Cardiovascular: Reports: no symptoms Respiratory: Reports: no symptoms Gastrointestinal/Abdominal: Reports: no symptoms Genitourinary: Reports: no symptoms Neurologic/Psychiatric: Reports: pre-existing deficit Endocrine: Reports: no symptoms Hematologic/Lymphatic: Reports: no symptoms Allergies: Coded Allergies: No Known Allergies (Unverified , 04/11/18) All Systems: reviewed and negative except above Subjective no events. stable. po intake remains poor. running low bs. d/w pt feeding tube. absolutely refusing. s/p tunneled picc line Objective Last 24 Hour Vital Signs Date Time Temp Pulse Resp B/P (MAP) Pulse Ox O2 Delivery O2 Flow Rate FiO2 11/19/18 08:00 98.2 90 17 121/54 (76) 98 11/19/18 04:00 98.0 102 16 120/70 (87) 96 11/19/18 00:00 98.1 99 18 130/81 (97) 97 11/18/18 21:00 Nasal Cannula 2.0 11/18/18 20:00 97.6 102 16 125/84 (98) 95 11/18/18 17:57 87 134/55 (81) 11/18/18 16:00 98.9 85 20 160/97 (118) 97 11/18/18 14:47 97.6 11/18/18 11:54 Nasal Cannula 2.0 11/18/18 09:00 Nasal Cannula 2.0 Intake and Output 11/18/18 11/19/18 19:00 07:00 Intake Total 170 ml 790 ml Output Total 1000 ml Balance -830 ml 790 ml Intake Oral 20 ml 240 ml IV Total 150 ml 550 ml Hemodialysis UF 1000 ml # Voids 1 Height (Feet): 5 Height (Inches): 6.00 Weight (Pounds): 191 Objective General Appearance: cachetic Neck: supple Cardiovascular: regular rhythm Respiratory/Chest: lungs clear Abdomen: normal bowel sounds, non tender, soft, no organomegaly Edema: no edema noted Arm (L), no edema noted Arm (R), no edema noted Leg (L), no edema noted Leg (R), no edema noted Pedal (L), no edema noted Pedal (R), no edema noted Generalized Skin: other - massive christiano hip wound and christiano foot Holden Quiroz MD Nov 19, 2018 08:55
[2018-11-19] MEDS: Megace 400mg/10ml Susp ORAL SCH ×2 (09:00→17:14)
[2018-11-19] MEDS: Ascorbic Acid 500mg tab ORAL SCH (09:00)
[2018-11-19] MEDS: Dakin's 0.125% Soln (Quarter Strength) 16oz TOPIC SCH (09:00)
[2018-11-19] MEDS: Zinc Sulfate 220mg cap ORAL SCH (09:00)
--- NOTE | 2018-11-19 09:18 | Nephrology Progress Note ---
Assessment/Plan Assessment/Plan A/P 1) ESRD- HD TTS 2) Sepsis/Cellulitis- Abx. 3) Anemia of CKD- on EPO 3 x week and PRN Bld Tx Hgb <7 4) Sacral Wounds- per wound care Awaiting NH placement Subjective Date patient seen: Nov 19, 2018 Time patient seen: 09:17 ROS Limited/Unobtainable: No Constitutional: Reports: malaise, weakness Allergies: Coded Allergies: No Known Allergies (Unverified , 04/11/18) Subjective Patient awaiting placement. Refusing many aspects of care/meds and food Objective Last 24 Hour Vital Signs Date Time Temp Pulse Resp B/P (MAP) Pulse Ox O2 Delivery O2 Flow Rate FiO2 11/19/18 08:00 98.2 90 17 121/54 (76) 98 11/19/18 04:00 98.0 102 16 120/70 (87) 96 11/19/18 00:00 98.1 99 18 130/81 (97) 97 11/18/18 21:00 Nasal Cannula 2.0 11/18/18 20:00 97.6 102 16 125/84 (98) 95 11/18/18 17:57 87 134/55 (81) 11/18/18 16:00 98.9 85 20 160/97 (118) 97 11/18/18 14:47 97.6 11/18/18 11:54 Nasal Cannula 2.0 Intake and Output 11/18/18 11/19/18 19:00 07:00 Intake Total 170 ml 790 ml Output Total 1000 ml Balance -830 ml 790 ml Intake Oral 20 ml 240 ml IV Total 150 ml 550 ml Hemodialysis UF 1000 ml # Voids 1 Height (Feet): 5 Height (Inches): 6.00 Weight (Pounds): 191 General Appearance: no apparent distress, alert EENT: normal ENT inspection Neck: normal alignment, supple Cardiovascular: normal rate Respiratory/Chest: normal breath sounds Abdomen: non tender, soft Edema: no edema noted Arm (L), no edema noted Arm (R), no edema noted Leg (L), no edema noted Leg (R), no edema noted Pedal (L), no edema noted Pedal (R), no edema noted Generalized Rajat Turner MD Nov 19, 2018 09:18
[2018-11-19] MEDS ORDERED: D5NS 1000ml IV ONE (11:05)
[2018-11-19 12:00] VITALS: BP 142/74
--- NOTE | 2018-11-19 14:46 | Infectious Diseases Prog Note ---
"Assessment/Plan Assessment/Plan A: 1. right arm abscess with coag neg staph | [facility] treated 2. toe gangrene 3. bilateral heel osteomyelitis 4. renal failure on dialysis 5. diabetes mellitus 6. coag neg staph sepsis P 1. continue iv vancomycin X 23 days 2. Waiting for placement Subjective ROS Limited/Unobtainable: Yes Constitutional: Reports: no symptoms Musculoskeletal: Reports: pain, other - in legs Allergies: Coded Allergies: No Known Allergies (Unverified , 04/11/18) Objective Vital Signs Last 24 Hour Vital Signs Date Time Temp Pulse Resp B/P (MAP) Pulse Ox O2 Delivery O2 Flow Rate FiO2 11/19/18 12:00 97.3 78 20 142/74 (96) 98 11/19/18 09:00 Nasal Cannula 2.0 11/19/18 08:00 98.2 90 17 121/54 (76) 98 11/19/18 04:00 98.0 102 16 120/70 (87) 96 11/19/18 00:00 98.1 99 18 130/81 (97) 97 11/18/18 21:00 Nasal Cannula 2.0 11/18/18 20:00 97.6 102 16 125/84 (98) 95 11/18/18 17:57 87 134/55 (81) 11/18/18 16:00 98.9 85 20 160/97 (118) 97 11/18/18 14:47 97.6 Height (Feet): 5 Height (Inches): 6.00 Weight (Pounds): 191 General Appearance: no acute distress HEENT: mucous membranes moist Respiratory/Chest: lungs clear Cardiovascular: normal rate, other - Permacath & central lines Abdomen: soft, non tender Extremities: other - edema of legs Neurologic/Psychiatric: alert, responsive Current Medications Medications (Trade) Dose Ordered Sig/Alexandru Route PRN Reason Start Time Stop Time Status Last Admin Dose Admin Acetaminophen (Tylenol) 325 mg Q6H PRN ORAL Mild Pain/Temp > 100.5 11/11/18 15:17 12/01/18 15:16 Ascorbic Acid (Vitamin C) 500 mg DAILY ORAL 11/12/18 09:00 12/02/18 08:59 11/15/18 08:33 Atorvastatin Calcium (Lipitor) 40 mg BEDTIME ORAL 11/11/18 21:00 12/01/18 20:59 11/18/18 20:49 Calcium Acetate (Phoslo) 1,334 mg TIAC ORAL 11/11/18 16:30 12/02/18 06:29 11/14/18 06:04 Chlorhexidine Gluconate (Lashae-Hex 2%) 1 applic DAILY@2000 TOPIC 11/15/18 20:00 12/15/18 19:59 11/18/18 20:44 Dextrose (Dextrose 50%) 25 ml Q30M PRN IV Hypoglycemia 11/11/18 15:30 12/01/18 19:59 11/19/18 11:48 Dextrose (Dextrose 50%) 50 ml Q30M PRN IV Hypoglycemia 11/11/18 15:30 12/01/18 19:59 11/19/18 05:38 Dextrose/Sodium Chloride 1,000 ml @ 50 mls/hr Q20H IV 11/11/18 15:17 12/04/18 15:16 11/19/18 03:12 Duloxetine HCl (Cymbalta) 60 mg QHS ORAL 11/11/18 21:00 12/01/18 20:59 11/18/18 20:49 Epoetin Vishal (Procrit (for ESRD on dialysis)) 7,500 units MON-THU-THU SUBQ 11/12/18 21:00 12/01/18 20:59 11/17/18 21:16 Famotidine (Pepcid) 20 mg DAILY ORAL 11/12/18 09:00 12/02/18 08:59 11/15/18 08:33 Folic Acid (Folate) 1 mg DAILY ORAL 11/12/18 09:00 12/02/18 08:59 11/15/18 08:33 Heparin Sodium (Porcine) (Heparin 5000 units/ml) 5,000 units EVERY 8 HOURS SUBQ 11/11/18 22:00 12/01/18 21:59 11/19/18 13:37 Insulin Aspart (NovoLOG) BEFORE MEALS AND HS SUBQ 11/11/18 16:30 12/01/18 20:59 Levothyroxine Sodium (Synthroid) 75 mcg DAILY@0630 ORAL 11/14/18 07:45 12/14/18 07:44 Megestrol Acetate (Megace) 400 mg TWICE A DAY ORAL 11/16/18 09:00 12/16/18 08:59 Mirtazapine (Remeron) 30 mg BEDTIME ORAL 11/11/18 21:00 12/11/18 20:59 11/18/18 20:49 Morphine Sulfate (Morphine Sulfate) 2 mg Q4H PRN IVP Severe Pain (Pain Scale 7-10) 11/18/18 14:15 11/24/18 22:29 11/19/18 03:20 Ondansetron HCl (Zofran) 4 mg Q6H PRN IVP Nausea & Vomiting 11/12/18 09:30 12/12/18 09:29 11/12/18 09:36 Sodium Hypochlorite (Dakin's Quarter Strength) 1 applic DAILY TOPIC 11/12/18 09:00 12/02/18 11:29 11/15/18 08:33 Vancomycin HCl (Vanco rx to dose) 1 ea DAILY PRN MISC Per rx protocol 11/12/18 09:00 12/01/18 19:59 Zinc Sulfate (Zinc Sulfate) 220 mg DAILY ORAL 11/12/18 09:00 12/02/18 08:59 11/15/18 08:33 Daniel Aguilar MD Nov 19, 2018 14:46"
[2018-11-19 16:00] VITALS: BP 101/67
--- NOTE | 2018-11-19 16:17 | General Surgery Progress Note ---
General Surgery-Progress Note Subjective Procedure Performed left femoral central venous catheter insertion Additional Comments doing well. looks better. left chest wall tunneled IJ picc placed. Objective Last 24 Hour Vital Signs Date Time Temp Pulse Resp B/P (MAP) Pulse Ox O2 Delivery O2 Flow Rate FiO2 11/19/18 12:00 97.3 78 20 142/74 (96) 98 11/19/18 09:00 Nasal Cannula 2.0 11/19/18 08:00 98.2 90 17 121/54 (76) 98 11/19/18 04:00 98.0 102 16 120/70 (87) 96 11/19/18 00:00 98.1 99 18 130/81 (97) 97 11/18/18 21:00 Nasal Cannula 2.0 11/18/18 20:00 97.6 102 16 125/84 (98) 95 11/18/18 17:57 87 134/55 (81) I&O Intake and Output 11/18/18 11/19/18 19:00 07:00 Intake Total 170 ml 790 ml Output Total 1000 ml Balance -830 ml 790 ml Intake Oral 20 ml 240 ml IV Total 150 ml 550 ml Hemodialysis UF 1000 ml # Voids 1 Dressing: other Wound: other Drains: other Cardiovascular: RSR Respiratory: clear Abdomen: soft, flat, non-tender, present bowel sounds Extremities: other Plan Problems: (1) Abscess of upper arm Assessment & Plan: right upper extremity Antecubital AC fossa abscess. etiology unknown. at first area of induration / cellulitis but since has opened and draining pus. leukocytosis resolved multiple other wounds but those are chronic right arm picc but more proximal to abscess and do not seem to be related US noted and small 1cm area of likely prior abscess which is draining spontaneously. drainage less today. cellulitis improving. drainage less. improving. -dressing changes TID and prn -will monitor clinically. -continue IV ABx -can transition to oral abx for course duration. -d/c planning thank you (2) Sacral decubitus ulcer, stage IV Assessment & Plan: Pt presents with multiple Full thickness and unstageable pressure injuries. Abscess that is oozing moderate amt purulent exudate L upper ext.Pt's hygiene grossly neglected. Full thickness pressure injury L hip(L)11cm x (W)26cm with scattered mixed soft necrosis and slough wound bed and along borders .Periwound dark and indurated. Small amt brownish, malodorous exudate noted.Pressure injury to L ischium (L)2cm x (W)2.4cm with 100% soft necrosis , marginal erythema along borders.Periwound with dark skin pigmentation without erythema or induration.Full thickness pressure injury R hip (L)16.5cm x (W)11cm x (D)2cm. Mixed soft necrosis and slough to wound bed with Thick layer of soft necrosis along borders .Periwound dark without induration.Inferiorly to R hip wound is second full thickness pressure injury (L)2cm x (W)5.5cm with 100% yellow slough. Sacrum black with fluctuance(L)9.7cm x (W)13.3cm. Scattered small openings that are dry noted to wound bed. Periwound is intact. Dark skin tone without erythema or induration noted to R ischium.Historical scars noted to medial aspect of R thigh. Full thickness ulcer with 100% soft necrosis noted to posterior L tibia(L)6cm x (W)2.5cm .periwound dry and intact without erythema.Dry scaling skin both feet and web spaces of metatarsals.Dry eschar noted to 1st ,2nd .4th and 5th metatarsals of L foot .Unstable eschar noted to dorsum L 3rd metatarsal. Stable dry eschar noted to L hallux(L)1.7cm x (W) 1.6cm. Stable dry eschar noted to distal /lateral L foot (L)0.5cm x (W)0.7cm. Edges and periwound are intact. Full thickness pressure injury L heel with 90% necrosis with bordering erythema and soft slough (L)6cm x (W)6.6cm. Periwound dry and boggy without erythema. Full thickness pressure injury R heel with approx 40% necrosis,60% ivory with slough ,(+) maceration along borders .minimal brownish exudate.No odor noted. Periwound boggy without erythema. Dark skin pigmentation noted to 1-5th metatarsals R foot. Stable eschar noted to R hallux (L)1.5cm x (W)1cm.periwound is dry and intact. Tx.Plan: Apply Dakin's 0.025% soaked gauze to pressure injuries R Hip,L Hip,L Ischium and Sacrum. Cover with ABD pads and secure with Tegaderm drsgs Daily and prn. Apply Betadine to wounds R and L foot wounds .Cover with ABD and wrap with Kerlix Daily and prn. Apply Betadine to wound posterior R tibia.Cover with Abd pad and wrap with Kerlix Daily and prn. Reposition at least every 2 hours or as tolerated. Air Fluidized mattress. Off-load heels with pillow. (3) Renal failure Assessment & Plan: right tunneled IJ HD cath left tunneled IJ picc line prior temp lines removed all sites clean and hemostatic. thank you Alfred Hodges Nov 19, 2018 16:17
[2018-11-19 20:00] VITALS: BP 149/57
[2018-11-19] MEDS: Dyna-Hex 2% Top Sol 2oz TOPIC SCH (20:00)
[2018-11-19] MEDS: Atorvastatin 20mg tab ORAL SCH (20:40)
[2018-11-19] MEDS: DULoxetine 30mg cap ORAL SCH (20:40)
[2018-11-19] MEDS: Epogen (for ESRD on dialysis) SUBQ SCH (20:41)
--- NOTE | 2018-11-19 23:00 | Progress Note ---
DATE: 11/18/2018 CARDIOLOGY PROGRESS NOTE: This is a late entry. SUBJECTIVE: The patient remains without change. Intake remains poor. Glucose on the low side. The patient refuses NG or G-tube. OBJECTIVE: VITAL SIGNS: Blood pressure 119/87, heart rate 63 to 102, respiratory rate 18, and afebrile. LUNGS: Bilateral breath sounds. Diminished at the bases. CARDIAC: Regular rhythm and rate. Normal S1, S2. ABDOMEN: Soft. EXTREMITIES: Dependent edema. IMPRESSION: 1. Wound abscess. 2. Sepsis. 3. Decubitus. 4. Osteomyelitis. 5. Severe protein-calorie malnutrition. 6. Hypoglycemia. 7. Hypothyroidism. 8. Hypomagnesemia. 9. Severe anemia. 10. End-stage renal disease. PLAN: 1. Efforts at oral intake. 2. Agree with Megace. 3. Observe for secondary hypercoagulability. 4. Monitor and replace electrolytes as able by IV route. 5. Maintain central IV access. 6. Transfuse for hemoglobin below 8 g. Rodriguez Barrios M.D. DR: NILS JOB#: [id number] CC:
[2018-11-20] VITALS (7 sets, daily range): BP systolic 102–122; BP diastolic 42–92
--- NOTE | 2018-11-20 01:15 | Progress Note ---
DATE: 11/19/2018 CARDIOLOGY PROGRESS NOTE SUBJECTIVE: No new events. No new changes. PICC line in place. OBJECTIVE: Blood pressure 121/54, pulse 90, respirations 17, and afebrile. Exam unchanged. Remains high risk due to severe metabolic and nutritional insufficiencies in the setting of infections and wounds. PLAN: 1. Continue current plan of care and efforts as previously noted. 2. Hemodialysis with ultrafiltration for volume management. Rodriguez Barrios M.D. DR: HALEIGH JOB#: [id number] CC:
[2018-11-20] MEDS: Morphine Sulfate 4mg/ml Inj (IV/IM USE ONLY) IVP PRN ×2 (04:20→18:59)
[2018-11-20] MEDS: NovoLOG Insulin Flexpen SUBQ SCH ×4 (05:46→21:00)
[2018-11-20] MEDS: Heparin 5000 units/ml inj SUBQ SCH ×3 (05:46→22:07)
[2018-11-20] MEDS: Calcium Acetate 667mg Tab ORAL SCH ×3 (05:46→16:30)
[2018-11-20] MEDS: Dakin's 0.125% Soln (Quarter Strength) 16oz TOPIC SCH (09:00)
[2018-11-20] MEDS: Ascorbic Acid 500mg tab ORAL SCH (09:00)
[2018-11-20] MEDS: Zinc Sulfate 220mg cap ORAL SCH (09:00)
[2018-11-20] MEDS: Megace 400mg/10ml Susp ORAL SCH ×2 (09:00→18:00)
--- NOTE | 2018-11-20 09:41 | Nephrology Progress Note ---
Assessment/Plan Assessment/Plan A/P 1) ESRD- HD TTS 2) Sepsis/Cellulitis- Abx. 3) Anemia of CKD- on EPO 3 x week 4) Sacral Wounds- per wound care Awaiting NH placement Subjective Date patient seen: Nov 20, 2018 Time patient seen: 09:39 ROS Limited/Unobtainable: Yes Constitutional: Reports: malaise, weakness Allergies: Coded Allergies: No Known Allergies (Unverified , 04/11/18) Subjective Patient awaiting placement. Flat affect, declines to eat Objective Last 24 Hour Vital Signs Date Time Temp Pulse Resp B/P (MAP) Pulse Ox O2 Delivery O2 Flow Rate FiO2 11/20/18 04:04 97.3 91 19 111/57 (75) 11/20/18 00:00 97.1 93 18 122/62 (82) 11/19/18 21:00 Nasal Cannula 2.0 11/19/18 20:00 94 Nasal Cannula 2.0 28 11/19/18 20:00 Nasal Cannula 2.0 28 11/19/18 20:00 97.3 95 20 149/57 (87) 96 11/19/18 16:00 97.1 61 18 101/67 (78) 95 11/19/18 12:00 97.3 78 20 142/74 (96) 98 Intake and Output 11/19/18 11/20/18 19:00 07:00 Intake Total 50 ml 500 ml Output Total 0 ml Balance 50 ml 500 ml IV Total 50 ml 500 ml Output Urine Total 0 ml Laboratory Tests 11/20/18 04:00: Random Vancomycin Level 26.3 Height (Feet): 5 Height (Inches): 6.00 Weight (Pounds): 191 General Appearance: no apparent distress, lethargic EENT: normal ENT inspection Neck: normal alignment, supple Cardiovascular: normal rate, regular rhythm Respiratory/Chest: lungs clear, normal breath sounds Abdomen: non tender, soft Edema: no edema noted Arm (L), no edema noted Arm (R), no edema noted Leg (L), no edema noted Leg (R), no edema noted Pedal (L), no edema noted Pedal (R), no edema noted Generalized Rajat Turner MD Nov 20, 2018 09:41
--- NOTE | 2018-11-20 10:57 | Infectious Diseases Prog Note ---
"Assessment/Plan Assessment/Plan antibiotics : iv vancomycin A 1. right arm abscess with coag neg staph | [facility] s/p rx 2. toe gangrene 3. bilateral heel osteomyelitis 4. renal failure on dialysis 5. diabetes mellitus 6. coag neg staph sepsis P 1. continue iv vancomycin 22 more days after dialysis 2. will follow up cultures Subjective ROS Limited/Unobtainable: Yes Allergies: Coded Allergies: No Known Allergies (Unverified , 04/11/18) Objective Vital Signs Last 24 Hour Vital Signs Date Time Temp Pulse Resp B/P (MAP) Pulse Ox O2 Delivery O2 Flow Rate FiO2 11/20/18 08:00 96.3 93 20 103/63 (76) 11/20/18 04:04 97.3 91 19 111/57 (75) 11/20/18 00:00 97.1 93 18 122/62 (82) 11/19/18 21:00 Nasal Cannula 2.0 11/19/18 20:00 94 Nasal Cannula 2.0 28 11/19/18 20:00 Nasal Cannula 2.0 28 11/19/18 20:00 97.3 95 20 149/57 (87) 96 11/19/18 16:00 97.1 61 18 101/67 (78) 95 11/19/18 12:00 97.3 78 20 142/74 (96) 98 Height (Feet): 5 Height (Inches): 6.00 Weight (Pounds): 191 Respiratory/Chest: lungs clear Cardiovascular: normal rate, regular rhythm, no gallop/murmur Abdomen: soft, non tender Extremities: no edema, other - right subclavian, left subclavian Laboratory Tests Test 11/20/18 04:00 Random Vancomycin Level 26.3 ug/mL Current Medications Medications (Trade) Dose Ordered Sig/Alexandru Route PRN Reason Start Time Stop Time Status Last Admin Dose Admin Acetaminophen (Tylenol) 325 mg Q6H PRN ORAL Mild Pain/Temp > 100.5 11/11/18 15:17 12/01/18 15:16 Ascorbic Acid (Vitamin C) 500 mg DAILY ORAL 11/12/18 09:00 12/02/18 08:59 11/15/18 08:33 Atorvastatin Calcium (Lipitor) 40 mg BEDTIME ORAL 11/11/18 21:00 12/01/18 20:59 11/19/18 20:40 Calcium Acetate (Phoslo) 1,334 mg TIAC ORAL 11/11/18 16:30 12/02/18 06:29 11/14/18 06:04 Chlorhexidine Gluconate (Lashae-Hex 2%) 1 applic DAILY@2000 TOPIC 11/15/18 20:00 12/15/18 19:59 11/19/18 20:00 Dextrose (Dextrose 50%) 25 ml Q30M PRN IV Hypoglycemia 11/11/18 15:30 12/01/18 19:59 11/19/18 11:48 Dextrose (Dextrose 50%) 50 ml Q30M PRN IV Hypoglycemia 11/11/18 15:30 12/01/18 19:59 11/20/18 05:39 Dextrose/Sodium Chloride 1,000 ml @ 50 mls/hr Q20H IV 11/11/18 15:17 12/04/18 15:16 11/19/18 23:20 Duloxetine HCl (Cymbalta) 60 mg QHS ORAL 11/11/18 21:00 12/01/18 20:59 11/19/18 20:40 Epoetin Vishal (Procrit (for ESRD on dialysis)) 7,500 units MON-WED-THU SUBQ 11/12/18 21:00 12/01/18 20:59 11/19/18 20:41 Famotidine (Pepcid) 20 mg DAILY ORAL 11/12/18 09:00 12/02/18 08:59 11/15/18 08:33 Folic Acid (Folate) 1 mg DAILY ORAL 11/12/18 09:00 12/02/18 08:59 11/15/18 08:33 Heparin Sodium (Porcine) (Heparin 5000 units/ml) 5,000 units EVERY 8 HOURS SUBQ 11/11/18 22:00 12/01/18 21:59 11/20/18 05:46 Insulin Aspart (NovoLOG) BEFORE MEALS AND HS SUBQ 11/11/18 16:30 12/01/18 20:59 Levothyroxine Sodium (Synthroid) 75 mcg DAILY@0630 ORAL 11/14/18 07:45 12/14/18 07:44 Megestrol Acetate (Megace) 400 mg TWICE A DAY ORAL 11/16/18 09:00 12/16/18 08:59 Mirtazapine (Remeron) 30 mg BEDTIME ORAL 11/11/18 21:00 12/11/18 20:59 11/19/18 20:41 Morphine Sulfate (Morphine Sulfate) 2 mg Q4H PRN IVP Severe Pain (Pain Scale 7-10) 11/18/18 14:15 11/24/18 22:29 11/20/18 04:20 Ondansetron HCl (Zofran) 4 mg Q6H PRN IVP Nausea & Vomiting 11/12/18 09:30 12/12/18 09:29 11/12/18 09:36 Sodium Hypochlorite (Dakin's Quarter Strength) 1 applic DAILY TOPIC 11/12/18 09:00 12/02/18 11:29 11/15/18 08:33 Vancomycin HCl (Vanco rx to dose) 1 ea DAILY PRN MISC Per rx protocol 11/12/18 09:00 12/01/18 19:59 Zinc Sulfate (Zinc Sulfate) 220 mg DAILY ORAL 11/12/18 09:00 12/02/18 08:59 11/15/18 08:33 Arash Shafer MD Nov 20, 2018 10:57"
--- NOTE | 2018-11-20 15:54 | General Progress Note ---
Assessment/Plan Problem List: (1) Abscess ICD Codes: L02.91 - Cutaneous abscess, unspecified SNOMED: 781657184 (2) Sepsis ICD Codes: A41.9 - Sepsis, unspecified organism SNOMED: 33823586 (3) Sacral pressure ulcer ICD Codes: L89.159 - Pressure ulcer of sacral region, unspecified stage SNOMED: 000352527 (4) Sacral decubitus ulcer, stage IV ICD Codes: L89.154 - Pressure ulcer of sacral region, stage 4 SNOMED: 649005158, 576200340 (5) Acute osteomyelitis of right calcaneus ICD Codes: M86.171 - Other acute osteomyelitis, right ankle and foot SNOMED: 558110310 Status: stable, not improved Assessment/Plan iv abx per ID wound care HD per renal dvt/stress ulcer prophylaxis encourage po transfuse as needed refusing any type of enteral feed- ngt or gt offererd megace trial dc planning Subjective ROS Limited/Unobtainable: No Constitutional: Reports: malaise, weakness HEENT: Reports: no symptoms Cardiovascular: Reports: no symptoms Respiratory: Reports: no symptoms Gastrointestinal/Abdominal: Reports: poor appetite, poor fluid intake Genitourinary: Reports: no symptoms Neurologic/Psychiatric: Reports: depressed Endocrine: Reports: no symptoms Hematologic/Lymphatic: Reports: anemia Allergies: Coded Allergies: No Known Allergies (Unverified , 04/11/18) All Systems: reviewed and negative except above Subjective no events. w/o complaints. poor po intake. running low BS. encouraged to eat Objective Last 24 Hour Vital Signs Date Time Temp Pulse Resp B/P (MAP) Pulse Ox O2 Delivery O2 Flow Rate FiO2 11/20/18 15:45 96.4 92 20 113/54 (73) 100 11/20/18 14:10 Nasal Cannula 11/20/18 14:01 Nasal Cannula 11/20/18 08:00 96.3 93 20 103/63 (76) 11/20/18 04:04 97.3 91 19 111/57 (75) 11/20/18 00:00 97.1 93 18 122/62 (82) 11/19/18 21:00 Nasal Cannula 2.0 11/19/18 20:00 94 Nasal Cannula 2.0 28 11/19/18 20:00 Nasal Cannula 2.0 28 11/19/18 20:00 97.3 95 20 149/57 (87) 96 11/19/18 16:00 97.1 61 18 101/67 (78) 95 Intake and Output 11/19/18 11/20/18 19:00 07:00 Intake Total 50 ml 500 ml Output Total 0 ml Balance 50 ml 500 ml IV Total 50 ml 500 ml Output Urine Total 0 ml Laboratory Tests 11/20/18 04:00: Random Vancomycin Level 26.3 Height (Feet): 5 Height (Inches): 6.00 Weight (Pounds): 191 Objective General Appearance: cachetic Neck: supple Cardiovascular: regular rhythm Respiratory/Chest: lungs clear Abdomen: normal bowel sounds, non tender, soft, no organomegaly Edema: no edema noted Arm (L), no edema noted Arm (R), no edema noted Leg (L), no edema noted Leg (R), no edema noted Pedal (L), no edema noted Pedal (R), no edema noted Generalized Skin: other - massive christiano hip wound and christiano foot Holden Quiroz MD Nov 20, 2018 15:53
[2018-11-20] MEDS: D5NS 1,000 ML IV SCH (18:59)
[2018-11-20] MEDS: Dyna-Hex 2% Top Sol 2oz TOPIC SCH (22:04)
[2018-11-20] MEDS: DULoxetine 30mg cap ORAL SCH (22:05)
[2018-11-20] MEDS: Atorvastatin 20mg tab ORAL SCH (22:05)
[2018-11-21] VITALS: BP 147/68
[2018-11-21 04:00] VITALS: BP 127/85
[2018-11-21] MEDS: Morphine Sulfate 4mg/ml Inj (IV/IM USE ONLY) IVP PRN ×3 (04:05→21:33)
[2018-11-21] MEDS: Heparin 5000 units/ml inj SUBQ SCH ×2 (06:05→13:21)
[2018-11-21] MEDS: Calcium Acetate 667mg Tab ORAL SCH ×4 (06:05→16:18)
[2018-11-21] MEDS: NovoLOG Insulin Flexpen SUBQ SCH ×4 (06:27→21:00)
[2018-11-21 08:00] VITALS: BP 106/57
[2018-11-21] MEDS: Megace 400mg/10ml Susp ORAL SCH ×2 (08:40→17:21)
[2018-11-21] MEDS: Zinc Sulfate 220mg cap ORAL SCH (08:41)
[2018-11-21] MEDS: Ascorbic Acid 500mg tab ORAL SCH (08:41)
[2018-11-21] MEDS: Dakin's 0.125% Soln (Quarter Strength) 16oz TOPIC SCH (08:42)
--- NOTE | 2018-11-21 09:19 | General Progress Note ---
Assessment/Plan Problem List: (1) Abscess ICD Codes: L02.91 - Cutaneous abscess, unspecified SNOMED: 028633508 (2) Sepsis ICD Codes: A41.9 - Sepsis, unspecified organism SNOMED: 95507440 (3) Sacral pressure ulcer ICD Codes: L89.159 - Pressure ulcer of sacral region, unspecified stage SNOMED: 119926119 (4) Sacral decubitus ulcer, stage IV ICD Codes: L89.154 - Pressure ulcer of sacral region, stage 4 SNOMED: 346622927, 969562676 (5) Acute osteomyelitis of right calcaneus ICD Codes: M86.171 - Other acute osteomyelitis, right ankle and foot SNOMED: 282791139 Status: stable, progressing Assessment/Plan iv abx per ID wound care HD per renal dvt/stress ulcer prophylaxis encourage po transfuse as needed refusing any type of enteral feed- ngt or gt offererd megace trial dc planning Subjective ROS Limited/Unobtainable: No Constitutional: Reports: malaise, weakness HEENT: Reports: no symptoms Cardiovascular: Reports: no symptoms Respiratory: Reports: no symptoms Gastrointestinal/Abdominal: Reports: no symptoms Genitourinary: Reports: no symptoms Neurologic/Psychiatric: Reports: depressed, pre-existing deficit Endocrine: Reports: no symptoms Hematologic/Lymphatic: Reports: anemia Allergies: Coded Allergies: No Known Allergies (Unverified , 04/11/18) All Systems: reviewed and negative except above Subjective no events. w/o complaints. poor po intake. running low BS. encouraged to eat refusing ngt/gt. Objective Last 24 Hour Vital Signs Date Time Temp Pulse Resp B/P (MAP) Pulse Ox O2 Delivery O2 Flow Rate FiO2 11/21/18 08:00 97.0 91 19 106/57 (73) 99 11/21/18 04:00 98.0 91 19 127/85 (99) 99 11/21/18 00:00 97.2 96 20 147/68 (94) 99 11/20/18 21:28 Nasal Cannula 2.0 28 11/20/18 21:28 99 Nasal Cannula 2.0 28 11/20/18 21:00 Nasal Cannula 2.0 11/20/18 20:00 97.2 96 19 118/92 (101) 100 11/20/18 19:29 97.2 11/20/18 16:00 97.2 91 20 102/42 (62) 100 11/20/18 14:10 Nasal Cannula 11/20/18 14:01 Nasal Cannula 11/20/18 12:00 96.4 92 20 113/54 (73) 100 Intake and Output 11/20/18 11/21/18 19:00 07:00 Intake Total 600 ml 550 ml Output Total 200 ml Balance 400 ml 550 ml IV Total 600 ml 550 ml Hemodialysis UF 200 ml # Voids 1 Laboratory Tests 11/21/18 06:55: Random Vancomycin Level 20.4 Height (Feet): 5 Height (Inches): 6.00 Weight (Pounds): 193 Objective General Appearance: cachetic Neck: supple Cardiovascular: regular rhythm Respiratory/Chest: lungs clear Abdomen: normal bowel sounds, non tender, soft, no organomegaly Edema: no edema noted Arm (L), no edema noted Arm (R), no edema noted Leg (L), no edema noted Leg (R), no edema noted Pedal (L), no edema noted Pedal (R), no edema noted Generalized Skin: other - massive christiano hip wound and christiano foot Holden Quiroz MD Nov 21, 2018 09:19
[2018-11-21 10:04] LABS: HEMATOCRIT 30.6 % (37.0-47.0); HEMOGLOBIN 9.3 G/DL (12.0-16.0); MEAN CORPUSCULAR VOLUME 94 FL (80-99); PLATELET COUNT 55 K/UL (150-450); RED BLOOD COUNT 3.26 M/UL (4.20-5.40); RED CELL DISTRIBUTION WIDTH 16.4 % (11.6-14.8); WHITE BLOOD COUNT 7.4 K/UL (4.8-10.8)
[2018-11-21 12:00] VITALS: BP 118/53
--- NOTE | 2018-11-21 12:50 | Infectious Diseases Prog Note ---
"Assessment/Plan Assessment/Plan A: 1. right arm abscess with coag neg staph | [facility] treated 2. toe gangrene 3. bilateral heel osteomyelitis 4. renal failure on dialysis 5. diabetes mellitus 6. coag neg staph sepsis P 1. continue iv vancomycin X 21 days 2. Waiting for placement Subjective ROS Limited/Unobtainable: Yes Constitutional: Reports: no symptoms Allergies: Coded Allergies: No Known Allergies (Unverified , 04/11/18) Objective Vital Signs Last 24 Hour Vital Signs Date Time Temp Pulse Resp B/P (MAP) Pulse Ox O2 Delivery O2 Flow Rate FiO2 11/21/18 12:00 97.0 91 20 118/53 (74) 99 11/21/18 09:00 Nasal Cannula 2.0 11/21/18 08:00 97.0 91 19 106/57 (73) 99 11/21/18 04:00 98.0 91 19 127/85 (99) 99 11/21/18 00:00 97.2 96 20 147/68 (94) 99 11/20/18 21:28 Nasal Cannula 2.0 28 11/20/18 21:28 99 Nasal Cannula 2.0 28 11/20/18 21:00 Nasal Cannula 2.0 11/20/18 20:00 97.2 96 19 118/92 (101) 100 11/20/18 19:29 97.2 11/20/18 16:00 97.2 91 20 102/42 (62) 100 11/20/18 14:10 Nasal Cannula 11/20/18 14:01 Nasal Cannula Height (Feet): 5 Height (Inches): 6.00 Weight (Pounds): 193 General Appearance: no acute distress HEENT: mucous membranes moist Respiratory/Chest: lungs clear Cardiovascular: normal rate, other - bilateral subclavian lines Abdomen: soft, non tender Skin: ulcers Laboratory Tests Test 11/21/18 06:55 11/21/18 09:45 Random Vancomycin Level 20.4 ug/mL White Blood Count 7.4 K/UL (4.8-10.8) Red Blood Count 3.26 M/UL (4.20-5.40) L Hemoglobin 9.3 G/DL (12.0-16.0) L Hematocrit 30.6 % (37.0-47.0) L Mean Corpuscular Volume 94 FL (80-99) Mean Corpuscular Hemoglobin 28.4 PG (27.0-31.0) Mean Corpuscular Hemoglobin Concent 30.3 G/DL (32.0-36.0) L Red Cell Distribution Width 16.4 % (11.6-14.8) H Platelet Count 55 K/UL (150-450) L Mean Platelet Volume 9.8 FL (6.5-10.1) Neutrophils (%) (Auto) % (45.0-75.0) Lymphocytes (%) (Auto) % (20.0-45.0) Monocytes (%) (Auto) % (1.0-10.0) Eosinophils (%) (Auto) % (0.0-3.0) Basophils (%) (Auto) % (0.0-2.0) Differential Total Cells Counted 100 Neutrophils % (Manual) 63 % (45-75) Lymphocytes % (Manual) 26 % (20-45) Monocytes % (Manual) 8 % (1-10) Eosinophils % (Manual) 0 % (0-3) Basophils % (Manual) 0 % (0-2) Band Neutrophils 3 % (0-8) Platelet Estimate Decreased L Platelet Morphology Giant Platelets Occasional Hypochromasia 1+ Anisocytosis 1+ Current Medications Medications (Trade) Dose Ordered Sig/Alexandru Route PRN Reason Start Time Stop Time Status Last Admin Dose Admin Acetaminophen (Tylenol) 325 mg Q6H PRN ORAL Mild Pain/Temp > 100.5 11/11/18 15:17 12/01/18 15:16 Ascorbic Acid (Vitamin C) 500 mg DAILY ORAL 11/12/18 09:00 12/02/18 08:59 11/15/18 08:33 Atorvastatin Calcium (Lipitor) 40 mg BEDTIME ORAL 11/11/18 21:00 12/01/18 20:59 11/20/18 22:05 Calcium Acetate (Phoslo) 1,334 mg TIAC ORAL 11/11/18 16:30 12/02/18 06:29 11/14/18 06:04 Chlorhexidine Gluconate (Lashae-Hex 2%) 1 applic DAILY@1999 TOPIC 11/15/18 20:00 12/15/18 19:59 11/20/18 22:04 Dextrose (Dextrose 50%) 25 ml Q30M PRN IV Hypoglycemia 11/11/18 15:30 12/01/18 19:59 11/20/18 16:58 Dextrose (Dextrose 50%) 50 ml Q30M PRN IV Hypoglycemia 11/11/18 15:30 12/01/18 19:59 11/20/18 05:39 Dextrose (Dextrose 50%) 50 ml Q6HR IV 11/20/18 18:00 12/20/18 17:59 11/21/18 11:53 Dextrose/Sodium Chloride 1,000 ml @ 50 mls/hr Q20H IV 11/11/18 15:17 12/04/18 15:16 11/20/18 18:59 Duloxetine HCl (Cymbalta) 60 mg QHS ORAL 11/11/18 21:00 12/01/18 20:59 11/20/18 22:05 Epoetin Vishal (Procrit (for ESRD on dialysis)) 7,500 units THU-WED-THU SUBQ 11/12/18 21:00 12/01/18 20:59 11/19/18 20:41 Famotidine (Pepcid) 20 mg DAILY ORAL 11/12/18 09:00 12/02/18 08:59 11/15/18 08:33 Folic Acid (Folate) 1 mg DAILY ORAL 11/12/18 09:00 12/02/18 08:59 11/15/18 08:33 Heparin Sodium (Porcine) (Heparin 5000 units/ml) 5,000 units EVERY 8 HOURS SUBQ 11/11/18 22:00 12/01/18 21:59 11/21/18 06:05 Insulin Aspart (NovoLOG) BEFORE MEALS AND HS SUBQ 11/11/18 16:30 12/01/18 20:59 Levothyroxine Sodium (Synthroid) 75 mcg DAILY@0630 ORAL 11/14/18 07:45 12/14/18 07:44 Megestrol Acetate (Megace) 400 mg TWICE A DAY ORAL 11/16/18 09:00 12/16/18 08:59 Mirtazapine (Remeron) 30 mg BEDTIME ORAL 11/11/18 21:00 12/11/18 20:59 11/20/18 22:04 Morphine Sulfate (Morphine Sulfate) 2 mg Q4H PRN IVP Severe Pain (Pain Scale 7-10) 11/18/18 14:15 11/24/18 22:29 11/21/18 08:48 Ondansetron HCl (Zofran) 4 mg Q6H PRN IVP Nausea & Vomiting 11/12/18 09:30 12/12/18 09:29 11/12/18 09:36 Sodium Hypochlorite (Dakin's Quarter Strength) 1 applic DAILY TOPIC 11/12/18 09:00 12/02/18 11:29 11/15/18 08:33 Vancomycin HCl (Vanco rx to dose) 1 ea DAILY PRN MISC Per rx protocol 11/12/18 09:00 12/01/18 19:59 Vancomycin HCl 1 gm/Dextrose 275 ml @ 183.708 mls/hr ONCE ONCE IVPB 11/22/18 09:00 11/22/18 10:29 Zinc Sulfate (Zinc Sulfate) 220 mg DAILY ORAL 11/12/18 09:00 12/02/18 08:59 11/15/18 08:33 Daniel Aguilar MD Nov 21, 2018 12:50"
[2018-11-21 16:00] VITALS: BP 130/55
[2018-11-21] MEDS: D5NS 1,000 ML IV SCH (16:10)
--- NOTE | 2018-11-21 18:05 | General Progress Note ---
Assessment/Plan Problem List: (1) Anxiety disorder ICD Codes: F41.9 - Anxiety disorder, unspecified SNOMED: 494655302 (2) Poor appetite ICD Codes: R63.0 - Anorexia SNOMED: 65928488 (3) MDD (major depressive disorder) ICD Codes: F32.9 - Major depressive disorder, single episode, unspecified SNOMED: 513290649 Status: stable Assessment/Plan Remeron 30mg qhs provided ro/st Subjective Date patient seen: Nov 20, 2018 Neurologic/Psychiatric: Reports: anxiety, depressed, emotional problems Allergies: Coded Allergies: No Known Allergies (Unverified , 04/11/18) Subjective the pt is resisting care and treatment Objective Last 24 Hour Vital Signs Date Time Temp Pulse Resp B/P (MAP) Pulse Ox O2 Delivery O2 Flow Rate FiO2 11/21/18 16:00 97.3 91 20 130/55 (80) 100 11/21/18 12:00 97.0 91 20 118/53 (74) 99 11/21/18 09:00 Nasal Cannula 2.0 11/21/18 08:00 97.0 91 19 106/57 (73) 99 11/21/18 04:00 98.0 91 19 127/85 (99) 99 11/21/18 00:00 97.2 96 20 147/68 (94) 99 11/20/18 21:28 Nasal Cannula 2.0 28 11/20/18 21:28 99 Nasal Cannula 2.0 28 11/20/18 21:00 Nasal Cannula 2.0 11/20/18 20:00 97.2 96 19 118/92 (101) 100 11/20/18 19:29 97.2 Intake and Output 11/20/18 11/21/18 19:00 07:00 Intake Total 600 ml 600 ml Output Total 200 ml Balance 400 ml 600 ml IV Total 600 ml 600 ml Hemodialysis UF 200 ml # Voids 1 Laboratory Tests 11/21/18 06:55: Random Vancomycin Level 20.4 11/21/18 09:45: White Blood Count 7.4, Red Blood Count 3.26L, Hemoglobin 9.3L, Hematocrit 30.6L , Mean Corpuscular Volume 94, Mean Corpuscular Hemoglobin 28.4, Mean Corpuscular Hemoglobin Concent 30.3L, Red Cell Distribution Width 16.4H, Platelet Count 55L, Mean Platelet Volume 9.8, Neutrophils (%) (Auto) , Lymphocytes (%) (Auto) , Monocytes (%) (Auto) , Eosinophils (%) (Auto) , Basophils (%) (Auto) , Differential Total Cells Counted 100, Neutrophils % ( Manual) 63, Lymphocytes % (Manual) 26, Monocytes % (Manual) 8, Eosinophils % ( Manual) 0, Basophils % (Manual) 0, Band Neutrophils 3, Platelet Estimate DecreasedL, Platelet Morphology , Giant Platelets Occasional, Hypochromasia 1+, Anisocytosis 1+ Height (Feet): 5 Height (Inches): 6.00 Weight (Pounds): 193 General Appearance: no apparent distress, alert, cachetic Rose Durant MD Nov 21, 2018 18:05
[2018-11-21 20:00] VITALS: BP 117/74
[2018-11-21] MEDS: Dyna-Hex 2% Top Sol 2oz TOPIC SCH (21:15)
[2018-11-21] MEDS: Atorvastatin 20mg tab ORAL SCH (21:16)
[2018-11-21] MEDS: DULoxetine 30mg cap ORAL SCH (21:17)
[2018-11-22] VITALS: BP 118/58
[2018-11-22 04:00] VITALS: BP 124/60
[2018-11-22] MEDS: Morphine Sulfate 4mg/ml Inj (IV/IM USE ONLY) IVP PRN ×2 (04:40→23:01)
[2018-11-22] MEDS: Calcium Acetate 667mg Tab ORAL SCH ×3 (06:08→16:22)
[2018-11-22] MEDS: NovoLOG Insulin Flexpen SUBQ SCH ×4 (06:30→20:12)
[2018-11-22 08:00] VITALS: BP 86/58
[2018-11-22 08:31] LABS: ANION GAP 6 mmol/L (5-15); BLOOD UREA NITROGEN 13 mg/dL (7-18); CALCIUM 7.6 MG/DL (8.5-10.1); CARBON DIOXIDE 27 MMOL/L (21-32); CHLORIDE 109 MMOL/L (98-107); CREATININE 2.5 MG/DL (0.55-1.30); POTASSIUM 3.2 MMOL/L (3.5-5.1); SODIUM 142 MMOL/L (136-145)
--- NOTE | 2018-11-22 08:54 | Nephrology Progress Note ---
Assessment/Plan Assessment/Plan A/P 1) ESRD- HD today then back to TTS 2) Sepsis/Cellulitis- Abx. 3) Anemia of CKD- on EPO 3 x week 4) Sacral Wounds- per wound care 5) Hypokalemia- replace IV today Subjective Date patient seen: Nov 22, 2018 Time patient seen: 08:51 ROS Limited/Unobtainable: Yes Constitutional: Reports: malaise, weakness Allergies: Coded Allergies: No Known Allergies (Unverified , 04/11/18) Subjective Patient resting. Objective Last 24 Hour Vital Signs Date Time Temp Pulse Resp B/P (MAP) Pulse Ox O2 Delivery O2 Flow Rate FiO2 11/22/18 04:00 97.4 93 19 124/60 (81) 93 11/22/18 00:00 97.4 96 18 118/58 (78) 94 11/21/18 21:00 Nasal Cannula 2.0 11/21/18 20:00 97.2 92 18 117/74 (88) 94 11/21/18 16:00 97.3 91 20 130/55 (80) 100 11/21/18 12:00 97.0 91 20 118/53 (74) 99 11/21/18 09:00 Nasal Cannula 2.0 Intake and Output 11/21/18 11/22/18 18:59 06:59 Intake Total 550 ml 630 ml Balance 550 ml 630 ml Intake Oral 30 ml IV Total 550 ml 600 ml Laboratory Tests 11/21/18 09:45: White Blood Count 7.4, Red Blood Count 3.26L, Hemoglobin 9.3L, Hematocrit 30.6L , Mean Corpuscular Volume 94, Mean Corpuscular Hemoglobin 28.4, Mean Corpuscular Hemoglobin Concent 30.3L, Red Cell Distribution Width 16.4H, Platelet Count 55L, Mean Platelet Volume 9.8, Neutrophils (%) (Auto) , Lymphocytes (%) (Auto) , Monocytes (%) (Auto) , Eosinophils (%) (Auto) , Basophils (%) (Auto) , Differential Total Cells Counted 100, Neutrophils % ( Manual) 63, Lymphocytes % (Manual) 26, Monocytes % (Manual) 8, Eosinophils % ( Manual) 0, Basophils % (Manual) 0, Band Neutrophils 3, Platelet Estimate DecreasedL, Platelet Morphology , Giant Platelets Occasional, Hypochromasia 1+, Anisocytosis 1+ 11/22/18 05:00: Sodium Level 142, Potassium Level 3.2L, Chloride Level 109H, Carbon Dioxide Level 27, Anion Gap 6, Blood Urea Nitrogen 13, Creatinine 2.5H, Estimat Glomerular Filtration Rate 21.2, Glucose Level 66L, Calcium Level 7.6L Height (Feet): 5 Height (Inches): 6.00 Weight (Pounds): 193 General Appearance: no apparent distress EENT: normal ENT inspection Neck: normal alignment, supple Cardiovascular: normal rate, regular rhythm Respiratory/Chest: lungs clear, normal breath sounds Abdomen: non tender, soft Edema: no edema noted Arm (L), no edema noted Arm (R), no edema noted Leg (L), no edema noted Leg (R), no edema noted Pedal (L), no edema noted Pedal (R), no edema noted Generalized Rajat Turner MD Nov 22, 2018 08:54
[2018-11-22] MEDS: Megace 400mg/10ml Susp ORAL SCH ×3 (09:00→20:41)
[2018-11-22] MEDS: Ascorbic Acid 500mg tab ORAL SCH ×2 (09:00→20:26)
[2018-11-22] MEDS: Zinc Sulfate 220mg cap ORAL SCH ×2 (09:00→20:25)
[2018-11-22] MEDS: Vancomycin 1gm/D5W 275ml IVPB ONE ×4 (09:06→10:58)
[2018-11-22] MEDS: Dakin's 0.125% Soln (Quarter Strength) 16oz TOPIC SCH ×2 (09:07→20:26)
--- NOTE | 2018-11-22 09:11 | General Progress Note ---
Assessment/Plan Problem List: (1) Abscess ICD Codes: L02.91 - Cutaneous abscess, unspecified SNOMED: 582911066 (2) Sepsis ICD Codes: A41.9 - Sepsis, unspecified organism SNOMED: 59860117 (3) Sacral pressure ulcer ICD Codes: L89.159 - Pressure ulcer of sacral region, unspecified stage SNOMED: 514519111 (4) Sacral decubitus ulcer, stage IV ICD Codes: L89.154 - Pressure ulcer of sacral region, stage 4 SNOMED: 154104784, 524165267 (5) Acute osteomyelitis of right calcaneus ICD Codes: M86.171 - Other acute osteomyelitis, right ankle and foot SNOMED: 995496922 Assessment/Plan iv abx per ID wound care HD per renal dvt/stress ulcer prophylaxis encourage po transfuse as needed refusing any type of enteral feed- ngt or gt offererd megace dc planning Subjective ROS Limited/Unobtainable: No Constitutional: Reports: malaise, weakness HEENT: Reports: no symptoms Cardiovascular: Reports: no symptoms Respiratory: Reports: no symptoms Gastrointestinal/Abdominal: Reports: poor appetite Genitourinary: Reports: no symptoms Neurologic/Psychiatric: Reports: depressed Endocrine: Reports: no symptoms Hematologic/Lymphatic: Reports: no symptoms Allergies: Coded Allergies: No Known Allergies (Unverified , 04/11/18) All Systems: reviewed and negative except above Subjective no events. w/o complaints. poor po intake. running low BS. encouraged to eat refusing ngt/gt. Objective Last 24 Hour Vital Signs Date Time Temp Pulse Resp B/P (MAP) Pulse Ox O2 Delivery O2 Flow Rate FiO2 11/22/18 04:00 97.4 93 19 124/60 (81) 93 11/22/18 00:00 97.4 96 18 118/58 (78) 94 11/21/18 21:00 Nasal Cannula 2.0 11/21/18 20:00 97.2 92 18 117/74 (88) 94 11/21/18 16:00 97.3 91 20 130/55 (80) 100 11/21/18 12:00 97.0 91 20 118/53 (74) 99 Intake and Output 11/21/18 11/22/18 18:59 06:59 Intake Total 550 ml 630 ml Balance 550 ml 630 ml Intake Oral 30 ml IV Total 550 ml 600 ml Laboratory Tests 11/21/18 09:45: White Blood Count 7.4, Red Blood Count 3.26L, Hemoglobin 9.3L, Hematocrit 30.6L , Mean Corpuscular Volume 94, Mean Corpuscular Hemoglobin 28.4, Mean Corpuscular Hemoglobin Concent 30.3L, Red Cell Distribution Width 16.4H, Platelet Count 55L, Mean Platelet Volume 9.8, Neutrophils (%) (Auto) , Lymphocytes (%) (Auto) , Monocytes (%) (Auto) , Eosinophils (%) (Auto) , Basophils (%) (Auto) , Differential Total Cells Counted 100, Neutrophils % ( Manual) 63, Lymphocytes % (Manual) 26, Monocytes % (Manual) 8, Eosinophils % ( Manual) 0, Basophils % (Manual) 0, Band Neutrophils 3, Platelet Estimate DecreasedL, Platelet Morphology , Giant Platelets Occasional, Hypochromasia 1+, Anisocytosis 1+ 11/22/18 05:00: Sodium Level 142, Potassium Level 3.2L, Chloride Level 109H, Carbon Dioxide Level 27, Anion Gap 6, Blood Urea Nitrogen 13, Creatinine 2.5H, Estimat Glomerular Filtration Rate 21.2, Glucose Level 66L, Calcium Level 7.6L Height (Feet): 5 Height (Inches): 6.00 Weight (Pounds): 193 Objective General Appearance: cachetic Neck: supple Cardiovascular: regular rhythm Respiratory/Chest: lungs clear Abdomen: normal bowel sounds, non tender, soft, no organomegaly Edema: no edema noted Arm (L), no edema noted Arm (R), no edema noted Leg (L), no edema noted Leg (R), no edema noted Pedal (L), no edema noted Pedal (R), no edema noted Generalized Skin: other - massive christiano hip wound and christiano foot Holden Quiroz MD Nov 22, 2018 09:11
--- NOTE | 2018-11-22 11:19 | Infectious Diseases Prog Note ---
"Assessment/Plan Assessment/Plan antibiotics : iv vancomycin A 1. right arm abscess with coag neg staph | providencia s/p rx 2. toe gangrene 3. bilateral heel osteomyelitis 4. renal failure on dialysis 5. diabetes mellitus 6. coag neg staph sepsis P 1. continue iv vancomycin 20 more days after dialysis 2. will follow up cultures Subjective Constitutional: Denies: fever, chills Respiratory: Denies: shortness of breath, dry cough Gastrointestinal/Abdominal: Denies: nausea, vomiting, diarrhea Musculoskeletal: Denies: pain Allergies: Coded Allergies: No Known Allergies (Unverified , 04/11/18) Objective Vital Signs Last 24 Hour Vital Signs Date Time Temp Pulse Resp B/P (MAP) Pulse Ox O2 Delivery O2 Flow Rate FiO2 11/22/18 11:09 Nasal Cannula 2.0 11/22/18 09:43 Nasal Cannula 2.0 11/22/18 09:00 Nasal Cannula 2.0 11/22/18 08:00 97.2 92 18 86/58 (67) 93 11/22/18 04:00 97.4 93 19 124/60 (81) 93 11/22/18 00:00 97.4 96 18 118/58 (78) 94 11/21/18 21:00 Nasal Cannula 2.0 11/21/18 20:00 97.2 92 18 117/74 (88) 94 11/21/18 16:00 97.3 91 20 130/55 (80) 100 11/21/18 12:00 97.0 91 20 118/53 (74) 99 Height (Feet): 5 Height (Inches): 6.00 Weight (Pounds): 193 Respiratory/Chest: lungs clear Cardiovascular: normal rate, regular rhythm, no gallop/murmur Abdomen: soft, non tender Extremities: no edema, other - right and left subclavian catheter Laboratory Tests Test 11/22/18 05:00 Sodium Level 142 MMOL/L (136-145) Potassium Level 3.2 MMOL/L (3.5-5.1) L Chloride Level 109 MMOL/L (98-107) H Carbon Dioxide Level 27 MMOL/L (21-32) Anion Gap 6 mmol/L (5-15) Blood Urea Nitrogen 13 mg/dL (7-18) Creatinine 2.5 MG/DL (0.55-1.30) H Estimat Glomerular Filtration Rate 21.2 mL/min (>60) Glucose Level 66 MG/DL (74-106) L Calcium Level 7.6 MG/DL (8.5-10.1) L Current Medications Medications (Trade) Dose Ordered Sig/Alexandru Route PRN Reason Start Time Stop Time Status Last Admin Dose Admin Acetaminophen (Tylenol) 325 mg Q6H PRN ORAL Mild Pain/Temp > 100.5 11/11/18 15:17 12/01/18 15:16 Ascorbic Acid (Vitamin C) 500 mg DAILY ORAL 11/12/18 09:00 12/02/18 08:59 11/15/18 08:33 Atorvastatin Calcium (Lipitor) 40 mg BEDTIME ORAL 11/11/18 21:00 12/01/18 20:59 11/21/18 21:16 Calcium Acetate (Phoslo) 1,334 mg TIAC ORAL 11/11/18 16:30 12/02/18 06:29 11/14/18 06:04 Chlorhexidine Gluconate (Lashae-Hex 2%) 1 applic DAILY@2000 TOPIC 11/15/18 20:00 12/15/18 19:59 11/21/18 21:15 Dextrose (Dextrose 50%) 25 ml Q30M PRN IV Hypoglycemia 11/11/18 15:30 12/01/18 19:59 11/21/18 16:37 Dextrose (Dextrose 50%) 50 ml Q30M PRN IV Hypoglycemia 11/11/18 15:30 12/01/18 19:59 11/20/18 05:39 Dextrose (Dextrose 50%) 50 ml Q6HR IV 11/20/18 18:00 12/20/18 17:59 11/22/18 06:03 Dextrose/Sodium Chloride 1,000 ml @ 50 mls/hr Q20H IV 11/11/18 15:17 12/04/18 15:16 11/21/18 16:10 Duloxetine HCl (Cymbalta) 60 mg QHS ORAL 11/11/18 21:00 12/01/18 20:59 11/21/18 21:17 Epoetin Vishal (Procrit (for ESRD on dialysis)) 7,500 units MON-WED-FRI SUBQ 11/12/18 21:00 12/01/18 20:59 11/19/18 20:41 Famotidine (Pepcid) 20 mg DAILY ORAL 11/12/18 09:00 12/02/18 08:59 11/15/18 08:33 Folic Acid (Folate) 1 mg DAILY ORAL 11/12/18 09:00 12/02/18 08:59 11/15/18 08:33 Insulin Aspart (NovoLOG) BEFORE MEALS AND HS SUBQ 11/11/18 16:30 12/01/18 20:59 Levothyroxine Sodium (Synthroid) 75 mcg DAILY@0630 ORAL 11/14/18 07:45 12/14/18 07:44 Megestrol Acetate (Megace) 400 mg TWICE A DAY ORAL 11/16/18 09:00 12/16/18 08:59 Mirtazapine (Remeron) 30 mg BEDTIME ORAL 11/11/18 21:00 12/11/18 20:59 11/21/18 21:17 Morphine Sulfate (Morphine Sulfate) 2 mg Q4H PRN IVP Severe Pain (Pain Scale 7-10) 11/18/18 14:15 11/24/18 22:29 11/22/18 04:40 Ondansetron HCl (Zofran) 4 mg Q6H PRN IVP Nausea & Vomiting 11/12/18 09:30 12/12/18 09:29 11/12/18 09:36 Sodium Hypochlorite (Dakin's Quarter Strength) 1 applic DAILY TOPIC 11/12/18 09:00 12/02/18 11:29 11/22/18 09:07 Sodium Chloride 1,000 ml @ 999 mls/hr Q1H1M ONCE IV 11/22/18 11:00 11/22/18 12:00 11/22/18 10:57 Vancomycin HCl (Vanco rx to dose) 1 ea DAILY PRN MISC Per rx protocol 11/12/18 09:00 12/01/18 19:59 Zinc Sulfate (Zinc Sulfate) 220 mg DAILY ORAL 11/12/18 09:00 12/02/18 08:59 11/15/18 08:33 Arash Shafer MD Nov 22, 2018 11:19"
[2018-11-22] MEDS: D5NS 1,000 ML IV SCH (11:33)
[2018-11-22 12:00] VITALS: BP 130/55
[2018-11-22 16:00] VITALS: BP 101/53
[2018-11-22 20:00] VITALS: BP 100/42
[2018-11-22] MEDS: Dyna-Hex 2% Top Sol 2oz TOPIC SCH (20:23)
[2018-11-22] MEDS: DULoxetine 30mg cap ORAL SCH (20:25)
[2018-11-22] MEDS: Atorvastatin 20mg tab ORAL SCH (20:25)
[2018-11-22] MEDS: Epogen (for ESRD on dialysis) SUBQ SCH (20:27)
[2018-11-23] VITALS: BP 118/66
[2018-11-23] MEDS: Megace 400mg/10ml Susp ORAL SCH ×2 (00:49→21:00)
--- NOTE | 2018-11-23 01:31 | General Progress Note ---
Assessment/Plan Problem List: (1) Anxiety disorder ICD Codes: F41.9 - Anxiety disorder, unspecified SNOMED: 049232114 (2) Poor appetite ICD Codes: R63.0 - Anorexia SNOMED: 03475442 (3) MDD (major depressive disorder) ICD Codes: F32.9 - Major depressive disorder, single episode, unspecified SNOMED: 455980513 Status: unchanged Assessment/Plan Remeron 45mg qhs provided ro/st d/w Subjective Date patient seen: Nov 22, 2018 Neurologic/Psychiatric: Reports: anxiety, depressed, emotional problems Allergies: Coded Allergies: No Known Allergies (Unverified , 04/11/18) Subjective the pt is taking meds more often she took all her night medications Objective Last 24 Hour Vital Signs Date Time Temp Pulse Resp B/P (MAP) Pulse Ox O2 Delivery O2 Flow Rate FiO2 11/23/18 00:00 98.4 76 18 118/66 (83) 100 11/22/18 21:00 Nasal Cannula 2.0 11/22/18 20:00 97.9 101 18 100/42 (61) 100 11/22/18 19:54 Nasal Cannula 2.0 28 11/22/18 19:52 98 Nasal Cannula 2.0 28 11/22/18 16:00 97.7 102 18 101/53 (69) 99 11/22/18 12:00 97.8 102 18 130/55 (80) 99 11/22/18 11:09 Nasal Cannula 2.0 11/22/18 09:43 Nasal Cannula 2.0 11/22/18 09:00 Nasal Cannula 2.0 11/22/18 08:00 97.2 92 18 86/58 (67) 93 11/22/18 04:00 97.4 93 19 124/60 (81) 93 Intake and Output 11/22/18 11/23/18 19:00 07:00 Intake Total 2475.000 ml Balance 2475.000 ml IV Total 1475.000 ml Hemodialysis 1000 ml # Bowel Movements 1 Laboratory Tests 11/22/18 05:00: Sodium Level 142, Potassium Level 3.2L, Chloride Level 109H, Carbon Dioxide Level 27, Anion Gap 6, Blood Urea Nitrogen 13, Creatinine 2.5H, Estimat Glomerular Filtration Rate 21.2, Glucose Level 66L, Calcium Level 7.6L Height (Feet): 5 Height (Inches): 6.00 Weight (Pounds): 193 General Appearance: alert, thin Neurologic: oriented x 3, responsive, depressed affect Rose Durant MD Nov 23, 2018 01:31
[2018-11-23 04:00] VITALS: BP 115/71
[2018-11-23] MEDS: Calcium Acetate 667mg Tab ORAL SCH ×4 (06:08→16:30)
[2018-11-23] MEDS: NovoLOG Insulin Flexpen SUBQ SCH ×4 (06:09→21:00)
[2018-11-23] MEDS: D5NS 1,000 ML IV SCH ×2 (06:09→17:38)
[2018-11-23 08:00] VITALS: BP 104/61
--- NOTE | 2018-11-23 08:56 | General Progress Note ---
Assessment/Plan Problem List: (1) Abscess ICD Codes: L02.91 - Cutaneous abscess, unspecified SNOMED: 657482203 (2) Sepsis ICD Codes: A41.9 - Sepsis, unspecified organism SNOMED: 46793746 (3) Sacral pressure ulcer ICD Codes: L89.159 - Pressure ulcer of sacral region, unspecified stage SNOMED: 252276430 (4) Sacral decubitus ulcer, stage IV ICD Codes: L89.154 - Pressure ulcer of sacral region, stage 4 SNOMED: 184715445, 969171099 (5) Acute osteomyelitis of right calcaneus ICD Codes: M86.171 - Other acute osteomyelitis, right ankle and foot SNOMED: 040739193 Status: stable, deteriorating Assessment/Plan iv abx per ID wound care HD per renal dvt/stress ulcer prophylaxis encourage po transfuse as needed refusing any type of enteral feed- ngt or gt offererd megace dc planning on hospice Subjective ROS Limited/Unobtainable: No Constitutional: Reports: malaise, weakness HEENT: Reports: no symptoms Cardiovascular: Reports: no symptoms Respiratory: Reports: no symptoms Gastrointestinal/Abdominal: Reports: poor appetite Genitourinary: Reports: no symptoms Neurologic/Psychiatric: Reports: depressed Endocrine: Reports: no symptoms Hematologic/Lymphatic: Reports: no symptoms Allergies: Coded Allergies: No Known Allergies (Unverified , 04/11/18) All Systems: reviewed and negative except above Subjective no events. continued poor po intake. family/pt want hospice and dnr Objective Last 24 Hour Vital Signs Date Time Temp Pulse Resp B/P (MAP) Pulse Ox O2 Delivery O2 Flow Rate FiO2 11/23/18 04:00 98.6 81 22 115/71 (86) 98 11/23/18 00:00 98.4 76 18 118/66 (83) 100 11/22/18 21:00 Nasal Cannula 2.0 11/22/18 20:00 97.9 101 18 100/42 (61) 100 11/22/18 19:54 Nasal Cannula 2.0 28 11/22/18 19:52 98 Nasal Cannula 2.0 28 11/22/18 16:00 97.7 102 18 101/53 (69) 99 11/22/18 12:00 97.8 102 18 130/55 (80) 99 11/22/18 11:09 Nasal Cannula 2.0 11/22/18 09:43 Nasal Cannula 2.0 11/22/18 09:00 Nasal Cannula 2.0 Intake and Output 11/22/18 11/23/18 19:00 07:00 Intake Total 2475.000 ml 610 ml Balance 2475.000 ml 610 ml Intake Oral 60 ml IV Total 1475.000 ml 550 ml Hemodialysis 1000 ml # Voids 1 # Bowel Movements 1 Height (Feet): 5 Height (Inches): 6.00 Weight (Pounds): 196 Objective General Appearance: cachetic Neck: supple Cardiovascular: regular rhythm Respiratory/Chest: lungs clear Abdomen: normal bowel sounds, non tender, soft, no organomegaly Edema: no edema noted Arm (L), no edema noted Arm (R), no edema noted Leg (L), no edema noted Leg (R), no edema noted Pedal (L), no edema noted Pedal (R), no edema noted Generalized Skin: other - massive christiano hip wound and christiano foot Holden Quiroz MD Nov 23, 2018 08:56
--- NOTE | 2018-11-23 10:13 | Infectious Diseases Prog Note ---
"Assessment/Plan Assessment/Plan antibiotics : iv vancomycin A 1. right arm abscess with coag neg staph | providencia s/p rx 2. toe gangrene 3. bilateral heel osteomyelitis 4. renal failure on dialysis 5. diabetes mellitus 6. coag neg staph sepsis P 1. continue iv vancomycin 19 more days after dialysis 2. will follow up cultures Subjective ROS Limited/Unobtainable: Yes Allergies: Coded Allergies: No Known Allergies (Unverified , 04/11/18) Objective Vital Signs Last 24 Hour Vital Signs Date Time Temp Pulse Resp B/P (MAP) Pulse Ox O2 Delivery O2 Flow Rate FiO2 11/23/18 09:00 Nasal Cannula 2.0 11/23/18 08:00 97.9 96 20 104/61 (75) 100 11/23/18 04:00 98.6 81 22 115/71 (86) 98 11/23/18 00:00 98.4 76 18 118/66 (83) 100 11/22/18 21:00 Nasal Cannula 2.0 11/22/18 20:00 97.9 101 18 100/42 (61) 100 11/22/18 19:54 Nasal Cannula 2.0 28 11/22/18 19:52 98 Nasal Cannula 2.0 28 11/22/18 16:00 97.7 102 18 101/53 (69) 99 11/22/18 12:00 97.8 102 18 130/55 (80) 99 11/22/18 11:09 Nasal Cannula 2.0 Height (Feet): 5 Height (Inches): 6.00 Weight (Pounds): 196 Respiratory/Chest: lungs clear Cardiovascular: normal rate, regular rhythm, no gallop/murmur Abdomen: soft, non tender Extremities: no edema, other - right and left subclavian catheter Current Medications Medications (Trade) Dose Ordered Sig/Alexandru Route PRN Reason Start Time Stop Time Status Last Admin Dose Admin Acetaminophen (Tylenol) 325 mg Q6H PRN ORAL Mild Pain/Temp > 100.5 11/11/18 15:17 12/01/18 15:16 Ascorbic Acid (Vitamin C) 500 mg QHS ORAL 11/22/18 21:00 12/02/18 08:59 11/22/18 20:26 Atorvastatin Calcium (Lipitor) 40 mg BEDTIME ORAL 11/11/18 21:00 12/01/18 20:59 11/22/18 20:25 Calcium Acetate (Phoslo) 1,334 mg TIAC ORAL 11/11/18 16:30 12/02/18 06:29 11/14/18 06:04 Chlorhexidine Gluconate (Lashae-Hex 2%) 1 applic DAILY@2000 TOPIC 11/15/18 20:00 12/15/18 19:59 11/22/18 20:23 Dextrose (Dextrose 50%) 25 ml Q30M PRN IV Hypoglycemia 11/11/18 15:30 12/01/18 19:59 11/21/18 16:37 Dextrose (Dextrose 50%) 50 ml Q30M PRN IV Hypoglycemia 11/11/18 15:30 12/01/18 19:59 11/20/18 05:39 Dextrose (Dextrose 50%) 50 ml Q6HR IV 11/20/18 18:00 12/20/18 17:59 11/23/18 06:08 Dextrose/Sodium Chloride 1,000 ml @ 50 mls/hr Q20H IV 11/11/18 15:17 12/04/18 15:16 11/23/18 06:09 Duloxetine HCl (Cymbalta) 60 mg QHS ORAL 11/11/18 21:00 12/01/18 20:59 11/22/18 20:25 Epoetin Vishal (Procrit (for ESRD on dialysis)) 7,500 units THU-THU-THU SUBQ 11/12/18 21:00 12/01/18 20:59 11/22/18 20:27 Famotidine (Pepcid) 20 mg QHS ORAL 11/22/18 21:00 12/02/18 08:59 11/22/18 20:25 Folic Acid (Folate) 1 mg QHS ORAL 11/22/18 21:00 12/02/18 08:59 11/22/18 20:26 Insulin Aspart (NovoLOG) BEFORE MEALS AND HS SUBQ 11/11/18 16:30 12/01/18 20:59 Levothyroxine Sodium (Synthroid) 75 mcg DAILY@0630 ORAL 11/14/18 07:45 12/14/18 07:44 11/23/18 06:09 Megestrol Acetate (Megace) 400 mg Q24H ORAL 11/23/18 01:00 12/23/18 00:59 Megestrol Acetate (Megace) 400 mg QHS ORAL 11/22/18 21:00 12/22/18 20:59 Mirtazapine (Remeron) 45 mg BEDTIME ORAL 11/22/18 21:00 12/22/18 20:59 11/22/18 20:25 Morphine Sulfate (Morphine Sulfate) 2 mg Q4H PRN IVP Severe Pain (Pain Scale 7-10) 11/18/18 14:15 11/24/18 22:29 11/22/18 23:01 Ondansetron HCl (Zofran) 4 mg Q6H PRN IVP Nausea & Vomiting 11/12/18 09:30 12/12/18 09:29 11/23/18 06:26 Sodium Hypochlorite (Dakin's Quarter Strength) 1 applic QHS TOPIC 11/22/18 21:00 12/02/18 11:29 11/22/18 20:26 Vancomycin HCl (Vanco rx to dose) 1 ea DAILY PRN MISC Per rx protocol 11/12/18 09:00 12/01/18 19:59 Zinc Sulfate (Zinc Sulfate) 220 mg QHS ORAL 11/22/18 21:00 12/02/18 08:59 11/22/18 20:25 Arash Shafer MD Nov 23, 2018 10:13"
[2018-11-23 12:00] VITALS: BP 116/96
[2018-11-23] MEDS: Morphine Sulfate 4mg/ml Inj (IV/IM USE ONLY) IVP PRN (15:18)
[2018-11-23 16:00] VITALS: BP 125/72
[2018-11-23 20:00] VITALS: BP 103/74
[2018-11-23] MEDS: Dyna-Hex 2% Top Sol 2oz TOPIC SCH (20:00)
[2018-11-23] MEDS: Dakin's 0.125% Soln (Quarter Strength) 16oz TOPIC SCH (21:00)
[2018-11-23] MEDS: DULoxetine 30mg cap ORAL SCH (21:32)
[2018-11-23] MEDS: Ascorbic Acid 500mg tab ORAL SCH (21:32)
[2018-11-23] MEDS: Zinc Sulfate 220mg cap ORAL SCH (21:32)
[2018-11-23] MEDS: Atorvastatin 20mg tab ORAL SCH (21:32)
[2018-11-24] MEDS: Megace 400mg/10ml Susp ORAL SCH (00:21)
[2018-11-24 01:40] VITALS: BP 136/76
[2018-11-24] MEDS: Morphine Sulfate 4mg/ml Inj (IV/IM USE ONLY) IVP PRN (01:45)
[2018-11-24 04:40] VITALS: BP 96/76
[2018-11-24] MEDS: Calcium Acetate 667mg Tab ORAL SCH (06:15)
[2018-11-24] MEDS: NovoLOG Insulin Flexpen SUBQ SCH (06:16)
--- NOTE | 2018-11-24 19:00 | Discharge Summary ---
DATE OF ADMISSION: 11/01/2018 SUMMARY DATE OF : 11/24/2018. CAUSE OF : 1. Cardiopulmonary arrest. 2. Renal failure. HOSPITAL COURSE: The patient is an unfortunate elderly female. She has a history of end-stage renal disease, multiple pressure ulcers. She was admitted with complaints of sepsis and osteomyelitis. She received broad-spectrum IV antibiotics. She was continued on hemodialysis while in-house though the patient continued poor p.o. intake with minimal nutrition. On multiple occasions, it was recommended that she undergo placement of an NG or a G-tube, but she was adamantly against any type of enteral feeding. This was discussed with her . He brought in food to see if she would eat that any better. She was given Remeron and Megace without any improvement in her oral intake. Several days prior to her passing, the staff met with the patient and her and they agreed for hospice. The patient . I talked to the patient's and informed him of the patient's passing. Holden Quiroz M.D. DR: ACE JOB#: [id number] CC:
== END 2018-11-24 13:36 | disposition expired | DRG 720 ==
LOC: EDBD 13:59 → EDBEDREQ 14:30 → EMR 14:55 → ICU 15:16 → EDBEDREQSVC 16:16 → EDBEDREQ 16:16 → 2W 11-02 18:57 → 2E 11-08 16:19 → 4E 11-11 15:11
PROC: 5A1D70Z Performance of Urinary Filtration, Intermittent, Less than 6 Hours Per Day (ICD-10-PCS; principal; 2018-11-02)
PROC: 0JH63XZ Insertion of Tunneled Vascular Access Device into Chest Subcutaneous Tissue and Fascia, Percutaneous Approach (ICD-10-PCS; 2018-11-18)
PROC: 05HM33Z Insertion of Infusion Device into Right Internal Jugular Vein, Percutaneous Approach (ICD-10-PCS; 2018-11-18)
DX: A41.50 Gram-negative sepsis, unspecified (principal); R65.21 Severe sepsis with septic shock; L89.219 Pressure ulcer of right hip, unspecified stage; I96 Gangrene, not elsewhere classified; L89.154 Pressure ulcer of sacral region, stage 4; L89.229 Pressure ulcer of left hip, unspecified stage; E11.22 Type 2 diabetes mellitus with diabetic chronic kidney disease; I12.0 Hypertensive chronic kidney disease with stage 5 chronic kidney disease or end stage renal disease; N18.6 End stage renal disease; Z99.2 Dependence on renal dialysis; M86.672 Other chronic osteomyelitis, left ankle and foot; M86.671 Other chronic osteomyelitis, right ankle and foot; R21 Rash and other nonspecific skin eruption; L03.113 Cellulitis of right upper limb; L89.620 Pressure ulcer of left heel, unstageable; L89.610 Pressure ulcer of right heel, unstageable; N25.81 Secondary hyperparathyroidism of renal origin; G89.4 Chronic pain syndrome; E78.5 Hyperlipidemia, unspecified; F41.9 Anxiety disorder, unspecified; E11.52 Type 2 diabetes mellitus with diabetic peripheral angiopathy with gangrene; D63.1 Anemia in chronic kidney disease; E87.5 Hyperkalemia; E87.6 Hypokalemia; Z51.5 Encounter for palliative care
CPT/HCPCS: 36415; 71045; 76000; 80048; 80053; 80202; 82550; 82553; 82607; 82746; 82962; 83540; 83550; 83605; 83690; 83735; 83880; 84100; 84132; 84443; 84484; 85007; 85025; 86850; 86900; 86901; 86920; 87040; 87070; 87081; 87181; 87205; 93005; 93970; 94760; 96365; 96368; 99291; A4246; J1815; J2405